=== PATIENT | female | born 1980 | race Caucasian/White ===

== ENCOUNTER 2023-03-13 06:39 | Emergency (ER) | payer OTHER ==
--- OUTSIDE RECORDS SUMMARY | 2023-03-13 06:43 | XMS REPORT | Continuity of Care Document ---
:1980 Author Organization [facility] t Address [address] [place] [address] [place] [address] [id number] Care Team Providers Name Role Phone Sari Albina HALL Primary Care Physician [phone] JUSTIN HENLEY Attending Clinician Unavailable CECIL GÓMEZ Attending Clinician Unavailable GENNY ANDREWS Attending Clinician Unavailable REBEKAH HERCULES Attending Clinician Unavailable [id number] Attending Clinician Unavailable LAB90 Attending Clinician Unavailable Genny Andrews Attending Clinician Unavailable DOUGLAS PRINCE Attending Clinician Unavailable JORGE SAMANIEGO Attending Clinician Unavailable Jorge Samaniego DO Attending Clinician ZOILA MCNULTY S Attending Clinician Unavailable Zoila Camejo S Attending Clinician Doctor Unassigned, [place] Attending Clinician Unavailable Claudine Gutierrez RN Attending Clinician Olga Camejo MD Attending Clinician Gifty Wheeler MD Attending Clinician Mary Ledbetter MD Attending Clinician MARY LEDBETTER Attending Clinician Unavailable Genny Andrews Admitting Clinician Unavailable JORGE SAMANIEGO Admitting Clinician Unavailable Gifty Wheeler MD Admitting Clinician GIFTY WHEELER Admitting Clinician Unavailable Payers Payer Name Policy Type Policy Number Effective Date Expiration Date Jazmin BURDICK MP CVS 9 [id number] 2022 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 [id number] 2021 NON-CONTRACT 00:00:00 GENERIC Problems Condition Condition Condition Status Onset Resolution Last Treating Co mments Source Name Details Category Date Date Treatment Clinician Date Pyelonephr Pyelonephr Disease Active U nivers itis itis 2-10 ity of 00:00: [address] Obesity Obesity Disease Active Univers (BMI (BMI 1-03 ity of 30-39.9) 30-39.9) 00:00: [address] Allergies, Adverse Reactions, Alerts Allergy Allergy Status Severity Reaction(s) Onset Inactive Treating Comm ents Source Name Type Date Date Clinician Codeine Propensi Active Nausea and Nolan sey ty to Vomiting 7-07 Seybold adverse 00:00: - reaction 00 Externa s l Sulfa Propensi Active (Sulfona ty to 7-07 mide adverse 00:00: Antibiot reaction 00 ics) to drug SULFA Drug Active Other-Cmnt Univer s (SULFONA Class 2-23 ity of MIDE 00:00: [place] ANTIBIOT 00 Medical ICS) Branch Sulfa Propensi Active Other - See Rash, Uni vers (Sulfona ty to comments 2-23 fever ity of mide adverse 00:00: [place] Antibiot reaction 00 Medica l ics) s Branch Sulfa Propensi Active Other Rash, Leandra Drugs ty to 2-23 fever Seybold adverse 00:00: - reaction 00 Externa s l No Known DA Active U [facility] Allergie 9-14 Clear s 00:00: [address] NO KNOWN Drug Active Univers ALLERGIE Class ity of S [facility] Social History Social Habit Start Date Stop Date Quantity Comments Source Gender identity Leandra Se ybold - External History of tobacco Cigarette Smoker Leandra Seybold - use External Sexual orientation Univer sity [facility] Alcohol intake 2022-09-242022-09-24 Lifetime Leandra Sey bold - 00:00:00 00:00:00 non-drinker External (finding) Exposure to 2022-01-01 2022-01-11 Not sure University of SARS-CoV-2 (event) 00:00:00 06:41:00 [facility] History of Social 2022-01-11 2022-01-11 Univers ity of function 00:00:00 00:00:00 [facility] Tobacco use and 2021-06-21 2021-06-21 User of smokeless Un iversity of exposure 00:00:00 00:00:00 tobacco [facility] Tobacco Comment 2021-06-21 2021-06-21 occasional smoker Un iversity of 00:00:00 00:00:00 1-3 sticks per [facility] Branch Sex Assigned At [birth year] Leandra Mary ybold - 00:00:00 00:00:00 External Smoking Status Start Date Stop Date Source Smokes tobacco daily 2022-08-07 00:00:00 Leandra Seybold - External Occasional tobacco smoker 2021-06-21 00:00:00 Un iversity of [facility] Medications Ordered Filled Start Stop Current Ordering Indication Dosage Frequency Signature Comments Components Source Medication Medication Date Date Medication? Clinician (SIG) Name Name Ondansetron Yes [id number] 4mg Q.[id number] Take 1 Leandra HCl 4 MG 01-20 [id number] tablet (4 Seybold oral Tablet 00:00: 3D mg total) - 00 by mouth Externa every 8 l hours as needed for nausea. FLUTICASONE Yes [id number] 50ug Use 1 Leandra PROPIONATE, 9-11 spray (50 Sey bold NASAL, 50 00:00: mcg total) - MCG/ACT 00 in each Externa nasal nostril l Suspension daily. PAXLOVID 2022- Yes [id number] Take two Leandra STANDARD -03 20- 150 mg Seybold (30) 00:00: 04:59 nirmatrelv - (300/100) 00 :00 ir (pink) Exter na Therapy tablets l Pack with one 100 mg ritonavir (white) tablet by mouth two times daily for 5 days. Bupropion 2022-0 Yes [id number] 150mg TAKE ONE Leandra HCL XL 150 8-25 (1) TABLET Sey bold MG OR TB24 00:00: (150 MG - 00 TOTAL) BY Externa MOUTH l DAILY. Escitalopra 2022-0 Yes [id number] 10mg TAKE ONE Leandra m Oxalate 8-25 (1) TABLET Seyb old 10 MG oral 00:00: (10 MG - Tablet 00 TOTAL) BY Externa MOUTH l DAILY. Methylpredn 0 2022- No [id number] 80mg Leandra isolone 5-16 05-16 Seybold Acetate 14:45: 14:37 - (DEPO-MEDRO 00 :00 Externa L) [80 l mg/ml] Methylpredn 0 2022- No [id number] 80mg 80 mg, Leandra isolone 5-16 05-16 intramuscu Seybo ld Acetate 14:45: 14:37 lar, ONCE, - (DEPO-MEDRO 00 :00 On Tue Firefighter Type One a L) [80 5/16/23 at l mg/ml] 0945, For 1 dose Methotrexat 2022-0 Yes [id number] Inject Leandra e 50 MG/2ML 5-16 0.4ml SC Seyb old injection 00:00: once a - Solution 00 week Externa l Methotrexat 2022-0 Yes [id number] Inject Leandra e 50 MG/2ML 5-16 0.4ml SC Seyb old injection 00:00: once a - Solution 00 week Externa l Escitalopra 2022-0 Yes [id number] 10mg Take 1 Leandra m Oxalate 4-25 tablet (10 Seyb old (Lexapro) 00:00: mg total) - 10 MG oral 00 by mouth Exter na Tablet daily l Bupropion 2022-0 Yes [id number] 150mg Take 1 K elsey HCL XL 150 4-25 tablet Seybold MG OR TB24 00:00: (150 mg - 00 total) by Externa mouth l daily Ondansetron 2022-0 Yes [id number] 4mg Q.[id number] Take 1 Leandra (ZOFRAN) 4 4-25 [id number] tablet (4 Seybold MG oral 00:00: 3D mg total) - TABLET 00 by mouth Externa DISPERSIBLE every 8 l hours as needed Escitalopra 2023-0 Yes [id number] 10mg Take 1 Leandra m Oxalate 4-25 tablet (10 Seyb old (Lexapro) 00:00: mg total) - 10 MG oral 00 by mouth Exter na Tablet daily l Bupropion 3-0 Yes [id number] 150mg Take 1 K elsey HCL XL 150 4-25 tablet Seybold MG OR TB24 00:00: (150 mg - 00 total) by Externa mouth l daily Ondansetron 3-0 Yes [id number] 4mg Q.[id number] Take 1 Leandra (ZOFRAN) 4 4-25 [id number] tablet (4 Seybold MG oral 00:00: 3D mg total) - TABLET 00 by mouth Externa DISPERSIBLE every 8 l hours as needed Ondansetron 2023-0 Yes [id number] 4mg Q.[id number] Take 1 Leandra (ZOFRAN) 4 4-25 [id number] tablet (4 Seybold MG oral 00:00: 3D mg total) - TABLET 00 by mouth Externa DISPERSIBLE every 8 l hours as needed methylPREDN 2023-0 Yes [id number] 1{vignesh} Take 1 vignesh Leandra ISolone 4 4-17 by mouth Seybol d MG oral 00:00: See Admin - Tablet 00 Instructio Externa Therapy ns Use as l Pack directed Ondansetron 2023-0 Yes [id number] 4mg Q.[id number] Take 1 Leandra HCl 4 MG 4-17 [id number] tablet (4 Seybold oral Tablet 00:00: 3D mg total) - 00 by mouth Externa every 8 l hours as needed for nausea methylPREDN 2023-0 Yes [id number] 1{vignesh} Take 1 vignesh Leandra ISolone 4 4-17 by mouth Seybol d MG oral 00:00: See Admin - Tablet 00 Instructio Externa Therapy ns Use as l Pack directed Ondansetron 2023-0 Yes [id number] 4mg Q.[id number] Take 1 Leandra HCl 4 MG 4-17 [id number] tablet (4 Seybold oral Tablet 00:00: 3D mg total) - 00 by mouth Externa every 8 l hours as needed for nausea Ondansetron 2023-0 Yes [id number] 4mg Q.[id number] Take 1 Leandra HCl 4 MG 4-17 [id number] tablet (4 Seybold oral Tablet 00:00: 3D mg total) - 00 by mouth Externa every 8 l hours as needed for nausea Ondansetron 2022- No [id number] 4mg Q.[id number] Take 1 Leandra HCl 4 MG 4-17 - [id number] tablet (4 Seybold oral Tablet 00:00: 00:00 3D mg total) - 00 :00 by mouth Externa every 8 l hours as needed for nausea methylPREDN 2022- No [id number] 1{vignesh} Take 1 vignesh Leandra ISolone 4 17 -16 by mouth Seybo ld MG oral 00:00: 00:00 See Admin - Tablet 00 :00 Instructio Externa Therapy ns Use as l Pack directed predniSONE Yes [id number] 1 pill K elsey (DELTASONE) 3-30 twice Seybold 10 MG oral 00:00: daily for - tablet 00 5 days Externa then 1 l pill once daily for 5 days predniSONE Yes [id number] 1 pill K elsey (DELTASONE) 3-30 twice Seybold 10 MG oral 00:00: daily for - tablet 00 5 days Externa then 1 l pill once daily for 5 days predniSONE 2022- No [id number] 1 pill Leandra (DELTASONE) 3-30 05-16 twice Seybol d 10 MG oral 00:00: 00:00 daily for - tablet 00 :00 5 days Externa then 1 l pill once daily for 5 days iopamidol 2021- No [id number] 64mL 64 mL, Univers (ISOVUE 01-11 Intravenou ity o f 370-500 mL) 14:00: 12:59 s, ONCE, 1 [place] injection 00 :00 dose, On Medica l 64 mL 01/11/22 Branch at 0900, Routine ondansetron 2021- No 4mg 4 mg, Slow Univers (ZOFRAN 01-11 IV Push, ity of (PF)) 13:15: 12:35 ONCE, 1 [place] injection 4 00 :00 dose, On Medi ofelia mg Fri01/11/22 Branch at 0815, Routine morpHINE (4 2021- No 4mg 4 mg, Slow Univers mg/mL) 01-11 IV Push, ity of injection 4 13:15: 12:36 ONCE, 1 [place] mg 00 :00 dose, On Medical Fri01/11/22 Branch at 0815, STAT piperacilli 2021- No 3.375g 3.375 g, Univers n-tazobacta 01-11 IV ity of m (ZOSYN) 12:31: 13:06 Piggyback, [place] 3.375 g in 00 :00 ONCE, 1 Medica l NaCl 0.9% dose, On Branch (NS) 50 mL Fri01/11/22 MINI-BAG at 0745, Administer over 30 Minutes, 50 mL
R vini for Anti-Infec tive: Empiric Therapy for Suspected Infection< br>Empiric Therapy Site: Skin / Soft tissue
Duration of therapy: 72 hours dexamethaso 2021- No 10mg 10 mg, Uni vers ne sod phos 01-11 Slow IV ity of PF 12:15: 12:30 Push, [place] injection 00 :00 ONCE, 1 Medical 10 mg dose, On Branch Fri01/11/22 at 0715, 1 mL chlorhexidi Yes [id number] 15mL Swish and Univers ne 0.12 % 01-11 spit out ity of mouthwash 00:00: 15 [place] in [place] 00 the Medical morning Branch and 15 mL in the evening. methylPREDN 2021-0 Yes Take by Univers ISolone 01-11 mouth ity of (MEDROL, 00:00: SEE-INSTRU [place] as VIGNESH,) 4 mg 00 CTIONS. Medica l tablets follow Branch package directions ondansetron 2021-0 Yes [id number] 4mg Take 1 Univers 4 mg 01-11 tablet by ity of disintegrat 00:00: mouth [place] ing tablet 00 every 8 Medica l (eight) Branch hours as needed for Nausea and Vomiting (N/V). Ondansetron 2021-0 Yes 4mg Q.[id number] Take 4 mg Leandra (ZOFRAN) 4 01-11 [id number] by mouth Seybold MG oral 00:00: 3D every 8 - TABLET 00 hours as Externa DISPERSIBLE needed l Ondansetron Yes 4mg Q.[id number] Take 4 mg Leandra (ZOFRAN) 4 - [id number] by mouth Seybold MG oral 00:00: 3D every 8 - TABLET 00 hours as Externa DISPERSIBLE needed l Ondansetron 2022- No 4mg Q.[id number] Take 4 mg Leandra (ZOFRAN) 4 01-11 04- [id number] by mouth Seybold MG oral 00:00: 00:00 3D every 8 - TABLET 00 :00 hours as Externa DISPERSIBLE needed l clindamycin 2021- No [id number] 300mg Take 2 Univers 150 mg 01-11 09-10 capsules ity of capsule 00:00: 04:59 by mouth 4 [place] as 00 :00 (four) Medical times Branch daily for 7 days. HYDROcodone 2021- No 4647 .5{tbl} Take 0.5-1 Univers -acetaminop 01-1110 tablets by era [place] (NORCO) 00:00: 04:59 mouth [place] 10-325 mg 00 :00 every 6 Medical tablet (six) Branch hours as needed for Pain (scale 7-10) for up to 7 days. Indication s: acute pain Dose No Unknown 7-07 00:00: 00 Dose 0 No Unknown 7-07 00:00: 00 Dose 0 No Unknown 7-07 00:00: 00 Dose 2021-0 No Unknown 7-07 00:00: 00 Dose 0 No Unknown 7-07 00:00: 00 ciprofloxac No 1mg in 500 mg 7-07 tablet 00:00: 00 prednisone 0 No mg 10 mg 7-07 tablet 00:00: 00 diphenhydrA 2021- No 25mg 25 mg, Uni vers MINE 07-04 Slow IV ity of (BENADRYL) 19:30: 18:40 Push, [place] injection 00 :00 ONCE, 1 Medical 25 mg dose, On Branch 07/04/21 at 1330, STAT ondansetron 2021- No 4mg 4 mg, Slow Univers (ZOFRAN 07-04 IV Push, ity of (PF)) 19:30: 18:40 ONCE, 1 [place] injection 4 00 :00 dose, On Medi ofelia mg Wed Branch 07/04/21 at 1330, KEON NaCl 0.9% 2021- No 500mL at 999 Univ ers (NS) bolus 07-04 mL/hr, 500 it y of infusion 19:30: 19:40 mL, IV [place] 500 mL 00 :00 Infusion, Medical ONCE, 1 Branch dose, On Fri07/04/21 at 1330, STAT NaCl 0.9% 2021- No 1000mL at 999 Uni vers (NS) bolus 07-04 mL/hr, ity of infusion 18:00: 17:58 1,000 mL, [place] as 1,000 mL 00 :00 IV Medical Infusion, Branch ONCE, 1 dose, On Fri07/04/21 at 1200, STAT acetaminoph 2021- No 650mg 650 mg, U nivers en 07-04 Oral, ity of (CHILDREN'S 17:10: 17:08 ONCE, 1 [place] ACETAMINOPH 00 :00 dose, On Medi ofelia EN) 160 Wed Branch mg/5 mL (5 07/04/21 at mL) oral 1115, suspension Routine 650 mg predniSONE 2021- No [id number] Take 3 Univers 20 mg 07-04 03-05 tablets by ity of tablet 00:00: 05:59 mouth [place] 00 :00 every Medical morning Branch for 3 days, THEN 2 tablets every morning for 3 days, THEN 1 tablet every morning for 3 days. ciprofloxac No 1mg in 250 mg 2-16 tablet 00:00: 00 acetaminoph 0 Yes Take by Uni vers en 2-14 mouth ity of (TYLENOL) 06:51: every 6 [place] 325 mg 01 (six) Medical tablet hours as Branch needed. naproxen 0 Yes 250mg Take 250 Univ ers 250 mg 2-14 mg by ity of tablet 06:51: mouth 2 [place] 01 (two) Medical times Branch daily with meals. acetaminoph 2022-0 Yes Take by Uni vers en 2-14 mouth ity of (TYLENOL) 06:51: every 6 [place] 325 mg 01 (six) Medical tablet hours as Branch needed. naproxen 2022-0 Yes 250mg Take 250 Univ ers 250 mg 2-14 mg by ity of tablet 06:51: mouth 2 [place] (two) Medical times Branch daily with meals. acetaminoph 2022-0 Yes Take by Uni vers en 2-14 mouth ity of (TYLENOL) 06:51: every 6 [place] 325 mg 01 (six) Medical tablet hours as Branch needed. naproxen 2022-0 Yes 250mg Take 250 Univ ers 250 mg 2-14 mg by ity of tablet 06:51: mouth 2 [place] (two) Medical times Branch daily with meals. acetaminoph 2022-0 Yes Take by Uni vers en 2-14 mouth ity of (TYLENOL) 06:51: every 6 [place] 325 mg 01 (six) Medical tablet hours as Branch needed. naproxen 2022-0 Yes 250mg Take 250 Univ ers 250 mg 2-14 mg by ity of tablet 06:51: mouth 2 [place] (two) Medical times Branch daily with meals. acetaminoph 2022-0 Yes Take by Uni vers en 2-14 mouth ity of (TYLENOL) 06:51: every 6 [place] 325 mg 01 (six) Medical tablet hours as Branch needed. naproxen 2022-0 Yes 250mg Take 250 Univ ers 250 mg 2-14 mg by ity of tablet 06:51: mouth 2 [place] (two) Medical times Branch daily with meals. vitamin 2021-0 Yes 1000ug 1,000 mcg, Un guy B-12 2-13 Oral, ity of (CYANOCOBAL 15:00: DAILY, [place] HIGHTOWER) 00 First dose Medical tablet on Sun Branch 1,000 mcg 06/24/21 at 0900, Until Discontinu ed, Routine vitamin 2021-0 2021- No [id number] 1000ug Take 1 Univers B-12 1,000 2-13 03-16 tablet by ity of mcg tablet 00:00: 04:59 mouth [place] 00 :00 daily for Medical 30 days. Branch vitamin 2021-0 2021- No [id number] 1000ug Take 1 Univers B-12 1,000 2-13 -16 tablet by ity of mcg tablet 00:00: 04:59 mouth [place] 00 :00 daily for Medical 30 days. Branch vitamin 2-0 2021- No [id number] 1000ug Take 1 Univers B-12 1,000 2-13 -16 tablet by ity of mcg tablet 00:00: 04:59 mouth [place] 00 :00 daily for Medical 30 days. Branch vitamin 2-0 2021- No [id number] 1000ug Take 1 Univers B-12 1,000 2-13 -16 tablet by ity of mcg tablet 00:00: 04:59 mouth [place] 00 :00 daily for Medical 30 days. Branch ibuprofen 2022-0 Yes 800mg Take 800 Uni vers 800 mg 2-12 mg by ity of tablet 18:52: mouth [place] 02 every 8 Medical (eight) Branch hours as needed. ibuprofen 2022-0 Yes 800mg Take 800 Uni vers 800 mg 2-12 mg by ity of tablet 18:52: mouth [place] 02 every 8 Medical (eight) Branch hours as needed. ibuprofen 2022-0 Yes 800mg Take 800 Uni vers 800 mg 2-12 mg by ity of tablet 18:52: mouth [place] 02 every 8 Medical (eight) Branch hours as needed. ibuprofen 2022-0 Yes 800mg Take 800 Uni vers 800 mg 2-12 mg by ity of tablet 18:52: mouth [place] 02 every 8 Medical (eight) Branch hours as needed. ibuprofen 2022-0 Yes 800mg Take 800 Uni vers 800 mg 2-12 mg by ity of tablet 18:52: mouth [place] 02 every 8 Medical (eight) Branch hours as needed. ibuprofen 2022-0 Yes 800mg Take 800 Uni vers 800 mg 2-12 mg by ity of tablet 18:52: mouth [place] 02 every 8 Medical (eight) Branch hours as needed. acetaminoph 2022-0 Yes Take by Uni vers en 2-12 mouth ity of (TYLENOL) 18:52: every 6 [place] 325 mg 02 (six) Medical tablet hours as Branch needed. naproxen 2022-0 Yes 250mg Take 250 Univ ers 250 mg 2-12 mg by ity of tablet 18:52: mouth 2 [place] 02 (two) Medical times Branch daily with meals. magnesium 2022-0 202- No 2g 2 g, IV Univ ers sulfate in 06-23 Piggyback, it y of water 2 15:30: 15:33 ONCE, 1 [place] gram/50 mL 00 :00 dose, On Medic al (4 %) Sat Branch infusion 2 06/23/21 at g 0930, Routine acetaminoph Yes 1{tbl} 1 tablet, Univers en-codeine - Oral, ity of (TYLENOL 07:51: Q6HPRN, [place] #3) 300-30 31 Starting Medic al mg tablet 1 on Sat Branch tablet 06/23/21 at 0151, Until Discontinu ed, Routine, Pain (scale 4-6) omeprazole 2021-2021- No [id number] 20mg Take 1 Univers 20 mg 06-23-15 capsule by ity of capsule 00:00: 04:59 mouth [place] 00 :00 daily for Medical 30 days. Branch omeprazole 2021-2021- No [id number] 20mg Take 1 Univers 20 mg 06-23-15 capsule by ity of capsule 00:00: 04:59 mouth [place] 00 :00 daily for Medical 30 days. Branch omeprazole 2021- No [id number] 20mg Take 1 Univers 20 mg 06-23-15 capsule by ity of capsule 00:00: 04:59 mouth [place] 00 :00 daily for Medical 30 days. Branch omeprazole 2021-2021- No [id number] 20mg Take 1 Univers 20 mg 06-23-15 capsule by ity of capsule 00:00: 04:59 mouth [place] 00 :00 daily for Medical 30 days. Branch sulfamethox 2021- No [id number] 1{tbl} Take 1 Univers azole-trime 06-23 tablet by it y of thoprim 00:00: 05:59 mouth 2 [place] (BACTRIM 00 :00 (two) Medical DS) 800-160 times Branch mg per daily for tablet 11 days. sulfamethox 2021- No [id number] 1{tbl} Take 1 Univers azole-trime 06-23-24 tablet by it y of thoprim 00:00: 05:59 mouth 2 [place] (BACTRIM 00 :00 (two) Medical DS) 800-160 times Branch mg per daily for tablet 11 days. sulfamethox 2021- No [id number] 1{tbl} Take 1 Univers azole-trime -04 12- tablet by it y of thoprim 00:00: 05:59 mouth 2 [place] (BACTRIM 00 :00 (two) Medical DS) 800-160 times Branch mg per daily for tablet 11 days. sulfamethox 2021-0 2021- No [id number] 1{tbl} Take 1 Univers azole-trime 06-23 tablet by it y of thoprim 00:00: 05:59 mouth 2 [place] (BACTRIM 00 :00 (two) Medical DS) 800-160 times Branch mg per daily for tablet 11 days. HYDROcodone 2021- No [id number] 1{tbl} Take 1 U nivers -acetaminop 06-2320 tablet by it y of hen 10-325 00:00: 05:59 mouth [place] mg tablet 00 :00 every 8 Medical (eight) Branch hours as needed for Pain (scale 7-10) for up to 7 days. Indication s: acute pain HYDROcodone 2021-2021- No [id number] 1{tbl} Take 1 U nivers -acetaminop 06-2320 tablet by it y of hen 10-325 00:00: 05:59 mouth [place] mg tablet 00 :00 every 8 Medical (eight) Branch hours as needed for Pain (scale 7-10) for up to 7 days. Indication s: acute pain levoFLOXaci 2021- No [id number] 750mg Take 1 Univers n 750 mg 06-23 tablet by ity o f tablet 00:00: 00:00 mouth [place] 00 :00 every 24 Medical (twenty-fo Branch ur) hours for 4 days. NaCl 0.9% 2021- Yes 10mL 10 mL, Univer s (NS) 2-11 Slow IV ity of injection 18:40: Push, [place]N, [place] 10 mL 31 Starting Medical on Fri Branch 06/22/21 at 1240, Until Discontinu ed, Routine, line maintenanc e lidocaine 2021-0 Yes 5mL 5 mL, Univers 1% (PF) 2-11 Subcutaneo ity of (XYLOCAINE) 18:40: us, PRN, [place] injection 5 31 Starting Medi ofelia mL on Fri Branch 06/22/21 at 1240, Until Discontinu ed, Routine, Local anesthesia sennosides- Yes 1{tbl} 1 tablet, Univers docusate 2-11 Oral, ity of sodium 15:00: DAILY, [place] (SENOKOT-S) 00 First dose Me dical 8.6-50 mg on Fri Branch per tablet 06/22/21 at 1 tablet 0900, Until Discontinu ed, Routine enoxaparin Yes 40mg 40 mg, Unive rs (LOVENOX) 2-10 Subcutaneo ity of injection 23:00: us, DAILY, [place] 40 mg 00 First dose Medical on [place] Branch 06/21/21 at 1700, Until Discontinu ed, Routine butalbital- 2021- No 1{tbl} 1 tablet, Univers acetaminoph 2-10 02-10 Oral, ONCE i ty of en-caff 20:30: 19:49 NOW, 1 [place] (ESGIC) 00 :00 dose, On Medical 50-325-40 [facility] mg tablet 1 06/21/21 at tablet 1430, Routine ceFEPIme Yes 2000mg 2,000 mg, Un guy (MAXIPIME) 2-10 IV ity of 2,000 mg in 18:00: [facility], [place] NaCl 0.9% 00 Q8H ABX, Medica l (NS) 100 mL First dose Br anch MINI-BAG (after last modificati on) on [facility] 06/21/21 at 1200, Until Discontinu ed, Administer over 30 Minutes, 100 mL
Reas on for Anti-Infec tive: Documented Infection< br>Documen ras Infection Site: Urine
D uration of Therapy: 7 days polyethylen Yes 17g 17 g, Unive rs e glycol 2-10 Oral, ity of 3350 powder 17:00: DAILY, [place] 17 g 00 First dose Medical on [facility] Branch 06/21/21 at 1100, Until Discontinu ed, Routine cyanocobala 2021- No 1000ug 1,000 mcg, Univers min 2-10 02-12 Intramuscu ity of (VITAMIN 14:30: 14:23 lar, Q24H, [place] B12) 00 :00 3 doses, Medical injection First dose Bran ch 1,000 mcg on [place] 06/21/21 at 0830, Last dose on 06/23/21 at 0830, Routine HYDROcodone 2021-0 Yes 1{tbl} 1 tablet, Univers -acetaminop 2-10 Oral, ity of hen (NORCO) 09:15: Q6HPRN, [place] 10-325 mg 31 Starting Medica l tablet 1 on [place] Branch tablet 06/21/21 at 0315, Until Discontinu ed, Routine, Pain (scale 7-10) ondansetron 2021-0 Yes 4mg 4 mg, Slow Univers (ZOFRAN 2-10 IV Push, ity of (PF)) 09:05: Q6HPRN, [place] injection 4 11 Starting Medi ofelia mg on [place] Branch 06/21/21 at 0305, Until Discontinu ed, Routine, Nausea and Vomiting (N/V) acetaminoph 0 Yes 650mg 650 mg, Un guy en 2-10 Oral, ity of (TYLENOL) 09:05: Q6HPRN, [place] tablet 650 11 Starting Medic al mg on [place] Branch 06/21/21 at 0305, Until Discontinu ed, Routine, Pain (scale 1-3) morpHINE 2021-0 2021- No 4mg 4 mg, Slow Un guy injection 4 2-10 02-10 IV Push, ity of mg 08:00: 06:59 ONCE, 1 [place] 00 :00 dose, On Medical [place] Branch 06/21/21 at 0200, STAT acetaminoph 2021-0 2021- No 1000mg 1,000 mg, Univers en 2-10 02-10 Oral, ity of (CHILDREN'S 07:15: 06:15 ONCE, 1 [place] ACETAMINOPH 00 :00 dose, On Medi ofelia EN) 160 [place] Branch mg/5 mL (5 06/21/21 at mL) oral 0115, suspension Routine 1,000 mg ketorolac 2021-0 2021- No 30mg 30 mg, Unive rs (TORADOL) 2-10 02-10 Slow IV ity of injection 06:30: 05:33 Push, [place] 30 mg 00 :00 ONCE, 1 Medical dose, On Branch [place] 06/21/21 at 0030, KEON
Fa culty member approving Restricted medication : ROLANDO CAMEJONELL vancomycin No 15mg/kg 1,500 mg Univers (VANCOCIN) 06-21 (rounded ity of 1,500 mg in 05:30: 06:00 from [place] NaCl 0.9% 00 :00 1,510.5 mg Medi ofelia (NS) 500 mL = 15 mg/kg Br anch piggyback ?100.7 kg), IV Piggyback, ONCE, 1 dose, On Fri06/20/21 at 2330, Administer over 30 Minutes, 500 mL
Reas on for Anti-Infec tive: Documented Infection& lt;br>Docu mented Infection Site: Blood
D uration of Therapy: Other (see Comments) ceFEPIme No 1000mg 1,000 mg, U nivers (MAXIPIME) 06-21 IV ity of injection 05:30: 04:59 [place]back, [place] 1,000 mg 00 :00 ONCE, 1 Medical dose, On Branch Fri06/20/21 at 2330, STAT
Re ason for Anti-Infec tive: Empiric Therapy for Suspected Infection< br>Empiric Therapy Site: Blood
D uration of therapy: 72 hours NaCl 0.9% 2021- No 1000mL at 999 Uni vers (NS) bolus 2-10 02-10 mL/hr, ity of infusion 04:15: 05:19 1,000 mL, [place] 1,000 mL 00 :00 IV Medical Infusion, Branch ONCE, 1 dose, On Fri06/20/21 at 2215, STAT NaCl 0.9% 2021- No 1000mL at 999 Uni vers (NS) bolus 2-10 02-10 mL/hr, ity of infusion 04:15: 05:47 1,000 mL, [place] 1,000 mL 00 :00 IV Medical Infusion, Branch ONCE, 1 dose, On Fri06/20/21 at 2215, STAT HYDROcodone 2021- No 1{tbl} Take 1 U nivers -acetaminop 2-10 02-10 tablet by it y of hen (NORCO) 03:06: 00:00 mouth [place] 10-325 mg 45 :00 every 4 Medical tablet (four) Branch hours as needed. busPIRone 2021-2021- No 10mg Take 10 mg U nivers 10 mg 2-10 02-10 by mouth 2 ity of tablet 03:06: 00:00 (two) [place] 45 :00 times Medical daily as Branch needed. predniSONE 2021-0 2021- No 10mg Take 10 mg Univers 10 mg 2-10 02-10 by mouth ity of tablet 03:06: 00:00 daily. [place] 45 :00 Medical Branch BUPROPION 2021-0 2021- No 200mg Take 200 Un guy HCL 2-10 02-10 mg by ity of (WELLBUTRIN 03:06[place] 00[place] :00 daily. Medical Branch prednisone 2021-0 No mg 20 mg 2-08 tablet 00:00: 00 phenazopyri 2021-0 No 1mg dine 100 mg 2-08 tablet 00:00: 00 Macrobid 2021-0 No 1mg 100 mg 2-08 capsule 00:00: 00 amoxicillin 2016-0 2021- No 1{tbl} Take 1 U nivers -clavulanat 1-03 02-10 tablet by it y of e 00:00: 00:00 mouth 2 [place] (AUGMENTIN) 00 :00 (two) Medical 875-125 mg times Branch per tablet daily. Immunizations Ordered Filled Date Status Comments Source Immunization Name Immunization Name Td (adult) 2014-11-29 Completed Leandra Jcaob - 00:00:00 External Td (adult) 2014-11-29 Completed Leandra Jacob - 00:00:00 External Td (adult) 2014-11-29 Completed Leandra Jacob - 00:00:00 External Td (adult) 2014-11-29 Completed Leandra Jacob - 00:00:00 External Td (adult) 2014-11-29 Completed Leandra Jacob - 00:00:00 External Td 2014-11-29 Completed [facility] 00:00:00 [facility] Td 2014-11-29 Completed [facility] 00:00:00 [facility] Td 2014-11-29 Completed [facility] 00:00:00 [facility] Td 2014-11-29 Completed [facility] 00:00:00 [facility] Td 2014-11-29 Completed University 00:00:00 [facility] TD, NOS Unknown Completed [facility] Vital Signs Vital Name Observation Time Observation Value Comments Source Systolic blood 2022-09-24 14:25:00 109 mm[Hg] Leandra Seybold - pressure External Diastolic blood 2022-09-24 14:25:00 76 mm[Hg] Kelse y Seybold - pressure External Heart rate 2022-09-24 14:25:00 85 /min Leandra S eybold - External Respiratory rate 2022-09-24 14:25:00 16 /min Lindsay ey Seybold - External Body height 2022-09-24 14:25:00 175.3 cm Leandra S eybold - External Body weight 2022-09-24 14:25:00 105.235 kg Leandra S eybold - External BMI 2022-09-24 14:25:00 34.26 kg/m2 Leandra S eybold - External Systolic blood 2022-08-26 16:02:00 118 mm[Hg] Leandra Seybold - pressure External Diastolic blood 2022-08-26 16:02:00 68 mm[Hg] Nolanse y Seybold - pressure External Heart rate 2022-08-26 16:02:00 89 /min Leandra Wu eybold - External Body temperature 2022-08-26 16:02:00 35.89 Bernadette Lindsay ey Seybold - External Respiratory rate 2022-08-26 16:02:00 16 /min Lindsay ey Seybold - External Body height 2022-08-26 16:02:00 175.3 cm Leandra S eybold - External Body weight 2022-08-26 16:02:00 105.688 kg Leandra S eybold - External BMI 2022-08-26 16:02:00 34.41 kg/m2 Leandra S eybold - External Oxygen saturation in 2022-08-26 16:02:00 96 /min Leandra Seybold - Arterial blood by External Pulse oximetry Systolic blood 2022-08-07 14:23:00 108 mm[Hg] Leandra Seybold - pressure External Diastolic blood 2022-08-07 14:23:00 76 mm[Hg] Kelse y Seybold - pressure External Heart rate 2022-08-07 14:23:00 117 /min Leandra lucasbomargo - External Body temperature 2022-08-07 14:23:00 36.39 Bernadette Lindsay Jacob - External Body height 2022-08-07 14:23:00 175.3 cm Leandra lucasbomargo - External Body weight 2022-08-07 14:23:00 104.327 kg Leandra lucasbold - External BMI 2022-08-07 14:23:00 33.97 kg/m2 Leandra lucasbomargo - External Heart rate 2022-01-11 14:30:00 76 /min [facility] [place] [facility] Oxygen saturation in 2022-01-11 14:30:00 98 /min [facility] of Arterial blood by [facility] Pulse oximetry Branch Systolic blood 2022-01-11 14:00:00 119 mm[Hg] Univer sity of pressure [place] [facility] Diastolic blood 2022-01-11 14:00:00 88 mm[Hg] Unive rsity of pressure [place] [facility] Respiratory rate 2022-01-11 14:00:00 16 /min [facility] [place] [facility] Body temperature 2022-01-11 11:44:00 37.33 Bernadette [facility] [place] [facility] Body height 2022-01-11 11:44:00 175.3 cm [facility] [place] [facility] Body weight 2022-01-11 11:44:00 102.513 kg [facility] [place] [facility] BMI 2022-01-11 11:44:00 33.37 kg/m2 [facility] [place] [facility] Body temperature 2021-07-04 18:47:34 37.78 Bernadette [facility] [place] [facility] Heart rate 2021-07-04 18:24:00 112 /min [facility] [place] [facility] Oxygen saturation in 2021-07-04 18:24:00 96 /min University of Arterial blood by [facility] Pulse oximetry Branch Systolic blood 2021-07-04 16:51:00 132 mm[Hg] Univer sity of pressure [place] [facility] Diastolic blood 2021-07-04 16:51:00 77 mm[Hg] Unive rsity of pressure [place] [facility] Respiratory rate 2021-07-04 16:51:00 18 /min [facility] [place] [facility] Body weight 2021-07-04 16:51:00 100.699 kg [facility] [place] [facility] BMI 2021-07-04 16:51:00 32.77 kg/m2 Universi ty [facility] Oxygen saturation in 2021-06-23 23:42:00 97 /min [facility] Arterial blood by [facility] Pulse oximetry Branch Systolic blood 2021-06-23 23:42:00 127 mm[Hg] Univer sity of pressure [facility] Diastolic blood 2021-06-23 23:42:00 76 mm[Hg] Unive rsity of pressure [facility] Heart rate 2021-06-23 23:42:00 83 /min Universi ty [facility] Body temperature 2021-06-23 23:42:[address] [facility] Respiratory rate 2021-06-23 23:42:00 18 /min [facility] Body height 2021-06-23 14:08:00 175.3 cm Universi ty [facility] Body weight 2021-06-23 14:08:00 100.699 kg Universi ty [facility] BMI 2021-06-23 14:08:00 32.77 kg/m2 [facility] BP Systolic 2021-07-04 10:21:00 BP Diastolic 2021-07-04 10:21:00 Weight Measured 2021-07-04 10:21:00 218.40 pounds Height Measured 2021-07-04 10:21:00 69.00 inches Body Temperature 2021-07-04 10:21:00 100.30 degrees Heart Rate 2021-07-04 10:21:00 144.00 /min Respiratory Rate 2021-07-04 10:21:00 BP Systolic 2021-06-19 10:51:00 126 mm[Hg] BP Diastolic 2021-06-19 10:51:00 75 mm[Hg] Weight Measured 2021-06-19 10:51:00 222.20 pounds Height Measured 2021-06-19 10:51:00 69.00 inches Body Temperature 2021-06-19 10:51:00 98.00 degrees Heart Rate 2021-06-19 10:51:00 120.00 /min Respiratory Rate 2021-06-19 10:51:00 24.00 /min Procedures Procedure Date / Time Performing Clinician Source Performed CT SOFT TISSUE NECK W 2022-01-11 13:06:31 Jorge Samaniego [facility] CONTRAST [facility] LACTIC ACID WHOLE BLOOD 2022-01-11 12:28:00 Singer [facility] COMP. METABOLIC PANEL 2022-01-11 12:27:00 Singer [facility] ([id number]) [facility] Branch CBC WITH DIFF 2022-01-11 12:27:00 Singer [facility] CONSENT/REFUSAL FOR 2022-01-11 12:22:15 Doctor Unassigned, [facility] DIAGNOSIS AND TREATMENT [place] [facility] RAPID INFLUENZA A/B 2021-07-04 18:18:00 Zoila Mcnulty [facility] COMP. METABOLIC PANEL 2021-07-04 17:01:00 Singer [facility] ([id number]) [facility] CBC WITH DIFF 2021-07-04 17:01:00 Singer [facility] URINALYSIS 2021-07-04 17:01:00 Singer [facility] LACTIC ACID WHOLE BLOOD 2021-07-04 17:01:00 Singer [facility] COVID-19 (ID NOW RAPID 2021-07-04 17:01:00 Singer [facility] TESTING) [facility] NOTICE OF PRIVACY 2021-07-04 16:42:56 Doctor Unassigned, [facility] PRACTICES [place] [facility] MAGNESIUM 2021-06-23 07:47:00 [facility] C-REACTIVE PROTEIN 2021-06-23 07:47:00 Alexandru Qiu [facility] BASIC METABOLIC PANEL (NA, 2021-06-23 07:47:00 Alxeandru Qiu [facility] K, CL, CO2, GLUCOSE, BUN, Medica l Branch CREATININE, CA) LIPID PANEL (81491)(TOTAL 2021-06-23 07:47:[address] [facility] CHOLESTEROL, Medical Branch TRIGLYCERIDES, HDL) SEDIMENTATION RATE 2021-06-23 07:47:00 Doskrishan [facility] CBC WITH DIFF 2021-06-23 07:47:00 Walter Cottrell [facility] CT HEAD WO CONTRAST 2021-06-22 21:58:29 DostalAlexandru [facility] MAGNESIUM 2021-06-22 18:37:00 [facility] BASIC METABOLIC PANEL (NA, 2021-06-22 18:37:00 Dostal, [facility] K, CL, CO2, GLUCOSE, BUN, Medica l Branch CREATININE, CA) CBC WITH DIFF 2021-06-22 18:37:00 [facility]os[facility]ishan [facility] US RETROPERITONEAL LIMITED 2021-06-21 21:26:13 [facility] VITAMIN B12, LEVEL 2021-06-21 11:08:00 [facility] FOLATE 2021-06-21 11:08:00 Jaz [facility] C-REACTIVE PROTEIN 2021-06-21 11:08:00 Lazarus [facility] HIV 1/2 AG-AB WITH REFLEX 2021-06-21 11:08:00 Alexandru Qiu [facility] CRITICAL CARE 2021-06-21 09:54:09 Olga Camejo [facility] CT ABDOMEN PELVIS WO 2021-06-21 04:49:43 Olga Camejo [facility] XR CHEST 1 VW 2021-06-21 04:28:00 Olga Camejo [facility] URINALYSIS 2021-06-21 04:08:00 Olga Camejo [facility] URINE CULTURE 2021-06-21 04:08:00 Olga Camejo [facility] COVID-19 (ID NOW RAPID 2021-06-21 04:08:00 Olga Camejo [facility] TESTING) Medical Branch LAB ONLY COVID 2021-06-21 04:08:00 Olga Camejo [facility] CREATINE KINASE 2021-06-21 04:01:00 Olga Camejo [facility] TEST, SERUM 2021-06-21 04:01:00 Alexandru Qiu [facility] BLOOD CULTURE SCREEN 2021-06-21 03:58:00 Olga Camejo [facility] TROPONIN I 2021-06-21 03:58:00 Olga Camejo [facility] COMP. METABOLIC PANEL 2021-06-21 03:58:00 Olga Camejo [facility] ([id number]) [facility] CBC WITH DIFF 2021-06-21 03:58:00 Olga Camejo [facility] PROTHROMBIN TIME / INR 2021-06-21 03:58:00 Olga Camejo [facility] ACTIVATED PARTIAL THRMPLAS 2021-06-21 03:58:00 Olga Camejo [facility] N-TERMINAL PRO-BNP 2021-06-21 03:58:00 Olga Camejo [facility] LACTIC ACID WHOLE BLOOD 2021-06-21 03:57:00 Olga Camejo [facility] HB ECG ROUTINE & RHYTHM 2021-06-21 03:07:42 Olga Camejo [facility] EMERGENCY SERVICES 2021-06-20 06:01:00 Doctor Unassigned, [facility] AGREEMENTS AND [place] [facility] AUTHORIZATIONS Plan of Care Planned Activity Planned Date Details Comments Source Goal Plan of Care Note [code = 81634-4] Goal Plan of Care Note [code = 28584-0] Goal Plan of Care Note [code = 69691-0] Goal Plan of Care Note [code = 41189-8] Goal Plan of Care Note [code = 54574-8] Goal Plan of Care Note [code = 86773-0] Goal Plan of Care Note [code = 23301-0] Goal Plan of Care Note [code = 24416-8] Encounters Start End Encounter Admission Attending Care Care Encounter Source Date/Time Date/Time Type Type Clinicians Facility Department ID 2023-01-22 2023-01-22 Outpatient LEANDRA HENLEY [id number] Leandra 00:00:00 00:00:00 Seybol d 2023-01-20 2023-01-20 Outpatient LEANDRA HENLEY [id number] Leandra 14:15:00 14:15:00 Seybol d 2023-01-19 2023-01-19 Outpatient LEANDRA GÓMEZ [id number] Leandra 00:00:00 00:00:00 CECIL Seybol d 2022-12-28 2022-12-28 Outpatient LEANDRA ANDREWS [id number] Leandra 00:00:00 00:00:00 GENNY Seybol d 2022-11-26 2022-11-26 Outpatient LEANDRA HERCULES [id number] Leandra 09:15:00 09:15:00 REBEKAH Seybo ld 2022-11-02 2022-11-02 Outpatient LEANDRA ANDREWS [id number] Leandra 00:00:00 00:00:00 GENNY Seybol d 2022-09-24 2022-09-24 Outpatient LAB47 LEANDRA BEARD [id number] Leandra 10:00:00 10:00:00 Seybol d 2022-09-24 2022-09-24 Outpatient LEANDRA HERCULES [id number] Leandra 09:15:00 09:15:00 REBEKAH Seybo ld 2022-09-03 2022-09-03 Outpatient LEANDRA ANDREWS [id number] Leandra 10:45:00 10:45:00 GENNY Seybol d 2022-08-26 2022-08-26 Outpatient LAB90 LEANDRA BEARD [id number] Leandra 11:50:00 11:50:00 Seybol d 2022-08-26 2022-08-26 Outpatient LEANDRA ANDREWS [id number] Leandra 11:00:00 11:00:00 GENNY Seybol d 2022-08-20 2022-08-20 Outpatient LEANDRA ANDREWS [id number] Leandra 08:00:00 08:00:00 GENNY Seybol d 2022-08-08 2022-08-08 Outpatient Efraín [facility] [id number] [facility] 12:00:00 12:00:00 Genny [address] [facility] 2022-08-08 2022-08-08 Outpatient LEANDRA ANDREWS [id number] Leandra 00:00:00 00:00:00 GENNY Seybol d 2022-08-08 2022-08-08 Outpatient LEANDRA PRINCE [id number] Leandra 00:00:00 00:00:00 DOUGLAS Seybol d 2022-08-08 2022-08-08 Outpatient LEANDRA BEARD [id number] Leandra 00:00:00 00:00:00 Seybol d 2022-08-07 2022-08-07 Outpatient LAB90 LEANDRA BEARD [id number] Leandra 10:10:00 10:10:00 Seybol d 2022-08-07 2022-08-07 Outpatient LEANDRA ANDREWS [id number] Leandra 09:30:00 09:30:00 GENNY Boykinol jair 2022-01-11 2022-01-11 Emergency X PA SAMANIEGO ERT [id number] Univers 06:47:00 10:01:00 JORGE roque [facility] 2022-01-11 2022-01-11 Emergency CHATO Samaniego [id number] Univers 06:47:00 10:01:00 Jorge RAMÍREZTAM 350.1.13.10 [facility] 4.2.7.2.686 [facility] [id number] [address] 2021-11-15 2021-11-15 Outpatient [id number] 00:00:00 00:00:00 Visit [id number] 2021-07-04 2021-07-04 Emergency PA LEWIS ERT [id number] Univers 10:56:00 13:43:00 ZOILA roque [facility] 2021-07-04 2021-07-04 Emergency PA Mcnulty [id number] Univers 10:56:00 13:43:00 Zoila RAMOS 350.1.13.10 i ty [facility] [place] [id number] [facility] 084 Branch 2021-07-04 2021-07-04 Orders Doctor BRUCE [id number] Univers 00:00:00 00:00:00 Only Unassigned, MILAGROS 350.1.13.10 ity of [place] [facility] 4.2.7.2.686 Adam as [id number] [facility] 009 Branch 2021-06-26 2021-06-26 Patient Doctor BRUCE [id number] Univers 00:00:00 00:00:00 Secure Msg Unassigned, MILAGROS 350.1.13.10 ity of [place] [facility] 4.2.7.2.686 Adam as [id number] [facility] 019 Branch 2021-06-25 2021-06-25 Transition GABBY Gutierrez [id number] Univers 00:00:00 00:00:00 of Care Claudine DICKY 350.1.13.10 i ty of [place] [id number] [facility] 403 Branch 2021-06-20 2021-06-23 Hospital Camejo Olga SCHUMACHER [id number] Univers 21:02:00 18:51:00 Encounter Gifty Wheeler 350.1.13.10 ity of [facility] 4.2.7.2.686 [place] [id number] [facility] 094 Branch 2021-06-20 2021-06-23 [facility] [id number] Univers 21:02:00 18:51:00 [facility] Results Test Description Test Time Test Comments Results Result Comments Source Lactic Acid Whole Blood 2022-01-11 12:37:07 Test Item Value Reference Range Interpretation Comme nts LACTIC ACID (test code = 9107521877) 1.22 mmol/L 0.5-2.2 Lab Interpretation (test code = 26614-6) [facility] (50497)2021-07-04 17:31:18 Test Item Value Reference Range Interpretation Comments NA (test code = 133 mmol/L 135-145 L 1679277928) K (test code = 4.9 mmol/L 3.5-5.0 6112849902) CL (test code = 104 mmol/L 98-108 2972860635) CO2 TOTAL (test code = 23 mmol/L 23-31 2268791062) AGAP (test code = 2-16 9960699598) BUN (test code = 13 mg/dL 7-23 6063808002) GLUCOSE (test code = 124 mg/dL 70-110 H 0012271334) CREATININE (test code = 0.90 mg/dL 0.50-1.04 3760813841) TOTAL BILI (test code = 0.7 mg/dL 0.1-1.8 1890478026) CALCIUM (test code = 9.3 mg/dL 8.6-10.6 6495700428) T PROTEIN (test code = 7.4 g/dL 6.3-8.2 1420732678) ALBUMIN (test code = 4.3 g/dL 3.5-5.0 5130922301) ALK PHOS (test code = 90 U/L 34-122 9442650694) ALTv (test code = 68 U/L 5-35 H 1742-6) AST(SGOT) (test code = 79 U/L 13-40 H 2285247520) eGFR (test code = mL/min/1.73m2 4488520885) BERLIN (test code = BERLIN) Association of Glomerular Filtration Rate (GFR) and Staging of Kidney Disease* + --+ --+ ------+| GFR (mL/min/1.73 m2) ?| With Kidney Damage ?| ?Without Kidney Damage+ --------+ --------+ +| ?>90 ?| ?Stage one ?| ? Normal ?+ ---+ ---+ -------+| ?60-89 ?| ?Stage two ?| ? Decreased GFR ? + --+ --+ ------+| ?30-59 ?| ?Stage three ?| ? Stage three ? + --+ --+ ------+| ?15-29 ?| ?Stage four ? | ? Stage four ?+ ---+ ---+ -------+| ?<15 (or dialysis) ? ?| ?Stage five ? | ? Stage five ?+ ---+ ---+ -------+ *Each stage assumes the associated GFR level has been in effect for at least three months. ?Stages 1 to 5, with or without kidney disease, indicate chronic kidney disease. Notes: Determination of stages one and two (with eGFR >59mL/min/1.73 m2) requires estimation of kidney damage for at least three months as defined by structural or functional abnormalities of the kidney, manifested by either:Pathological abnormalities or Markers of kidney damage (including abnormalities in the composition of the blood or urine or abnormalities in imaging tests). Lab Interpretation Abnormal (test code = 82293-2) [facility] with [id number] 17:16:16 Test Item Value Reference Range Interpretation Comments WBC (test code = See_Comment [Automated 9673-2) message] The sy stem which generated this result transmitted reference range : 4.30 - 11.10 10*3/?L. The reference range was not used to interpret this result as normal/abnormal . RBC (test code = See_Comment [Automated 689-8) message] The sy stem which generated this result transmitted reference range : 3.93 - 5.25 10*6/?L. The reference range was not used to interpret this result as normal/abnormal . HGB (test code = 14.3 g/dL 11.6-15.0 718-7) HCT (test code = 42.2 % 35.7-45.2 4544-3) MCV (test code = 97.5 fL 80.6-95.5 H 787-2) MCH (test code = 33.0 pg 25.9-32.8 H 785-6) MCHC (test code = 33.9 g/dL 31.6-35.1 786-4) RDW-SD (test code = 46.9 fL 39.0-49.9 56945-6) RDW-CV (test code = 13.1 % 12.0-15.5 788-0) PLT (test code = See_Comment [Automated 177-3) message] The sy stem which generated this result transmitted reference range : 166 - 358 10*3/ ?L. The reference r vidya was not used to interpret this result as normal/abnormal . MPV (test code = 9.4 fL 9.5-12.9 L 35835-2) NRBC/100 WBC (test See_Comment [Automat ed code = 7278349919) message] The system which generated this result transmitted reference range : 0.0 - 10.0 /100 WBCs. The refer ence range was not u sed to interpret th is result as normal/abnormal . NRBC x10^3 (test code <0.01 See_Comment [Auto mated = 6743366238) message] The s ystem which generated this result transmitted reference range : 10*3/?L. The reference range was not used to interpret this result as normal/abnormal . GRAN MAT (NEUT) % 80.1 % (test code = 770-8) IMM GRAN % (test code 0.30 % = 8912009766) LYMPH % (test code = 12.6 % 736-9) MONO % (test code = 4.6 % 5905-5) EOS % (test code = 2.1 % 713-8) BASO % (test code = 0.3 % 706-2) GRAN MAT x10^3(ANC) 4.91 10*3/uL 1.88-7.09 (test code = 5976172103) IMM GRAN x10^3 (test <0.03 0.00-0.06 code = 8667674674) LYMPH x10^3 (test code 0.77 10*3/uL 1.32-3.29 L = 731-0) MONO x10^3 (test code 0.28 10*3/uL 0.33-0.92 L = 742-7) EOS x10^3 (test code = 0.13 10*3/uL 0.03-0.39 711-2) BASO x10^3 (test code <0.03 0.01-0.07 = 704-7) Lab Interpretation Abnormal (test code = 56742-3) [facility] [id number] 17:12:38 Test Item Value Reference Range Interpretation Comments LACTIC ACID (test code = 1.69 mmol/L 0.50-2.20 7180075631) Lab Interpretation (test code = Normal 27718-1) [facility] (28054)(TOTAL CHOLESTEROL, TRIGLYCERIDES, HDL)2021-06-23 21:51:16 Test Item Value Reference Range Interpretation Comments CHOL (test code = 149 mg/dL 120-200 8267843538) HDL (test code = 20 mg/dL >50 L 4472977284) HDLC RATIO (test code = See_Comment H [Au tomated message] 4496761489) The system [employer] generated this result transmit ras reference range : <=4.5. The refe rence range was not u sed to interpret th is result as normal/abnormal . TRIG (test code = 137 mg/dL 30-170 9564807077) LDL CHOL (test code = 102 mg/dL See_Comment [Auto mated message] 78259-2) The system [employer] generated this result transmit ras reference range : <=160. The refe rence range was not u sed to interpret th is result as normal/abnormal . VLDL (test code = 27 mg/dL 5-60 7063656444) Lab Interpretation (test Abnormal code = 44748-9) [facility]-REACTIVE [id number] 17:54:55 Test Item Value Reference Range Interpretation Comments CRP (test code = 5065922651) 25.7 mg/dL <0.8 H Lab Interpretation (test code = Abnormal 84032-4) [facility] [id number] 08:35:00 Test Item Value Reference Range Interpretation Comments ESR (test code = See_Comment H [Automated message] 5139109689) The system [employer] generated this result transmitted ref erence range: 0 - 20 m m/HR. The reference r vidya was not used to interpret this result as normal/abnor mal. Lab Interpretation (test Abnormal code = 41246-5) [facility] METABOLIC PANEL (NA, K, CL, CO2, GLUCOSE, BUN, CREATININE, CA)2021-06-23 08:05:51 Test Item Value Reference Range Interpretation Comments NA (test code = 135 mmol/L 135-145 6185469331) K (test code = 3.8 mmol/L 3.5-5.0 0646537895) CL (test code = 104 mmol/L 98-108 8849442283) CO2 TOTAL (test code = 28 mmol/L 23-31 4448670114) AGAP (test code = 2-16 2540555452) BUN (test code = 13 mg/dL 7-23 6252039582) GLUCOSE (test code = 112 mg/dL 70-110 H 1974299323) CREATININE (test code = 0.73 mg/dL 0.50-1.04 6597599430) CALCIUM (test code = 8.6 mg/dL 8.6-10.6 8605544006) eGFR (test code = mL/min/1.73m2 7867665706) BERLIN (test code = BERLIN) Association of Glomerular Filtration Rate (GFR) and Staging of Kidney Disease* + --+ --+ ------+| GFR (mL/min/1.73 m2) ?| With Kidney Damage ?| ?Without Kidney Damage+ --------+ --------+ +| ?>90 ?| ?Stage one ?| ? Normal ?+ ---+ ---+ -------+| ?60-89 ?| ?Stage two ?| ? Decreased GFR ? + --+ --+ ------+| ?30-59 ?| ?Stage three ?| ? Stage three ? + --+ --+ ------+| ?15-29 ?| ?Stage four ? | ? Stage four ?+ ---+ ---+ -------+| ?<15 (or dialysis) ? ?| ?Stage five ? | ? Stage five ?+ ---+ ---+ -------+ *Each stage assumes the associated GFR level has been in effect for at least three months. ?Stages 1 to 5, with or without kidney disease, indicate chronic kidney disease. Notes: Determination of stages one and two (with eGFR >59mL/min/1.73 m2) requires estimation of kidney damage for at least three months as defined by structural or functional abnormalities of the kidney, manifested by either:Pathological abnormalities or Markers of kidney damage (including abnormalities in the composition of the blood or urine or abnormalities in imaging tests). Lab Interpretation Abnormal (test code = 73019-9) [facility] Test Item Value Reference Range Interpretation Comments MAGNESIUM (test code = 4156816074) 1.9 mg/dL 1.7-2.4 Lab Interpretation (test code = Normal 42049-0) [facility] WITH [id number] 07:55:06 Test Item Value Reference Range Interpretation Comments WBC (test code = See_Comment H [Automated 6690-2) message] The sy stem which generated this result transmitted reference range : 4.30 - 11.10 10*3/?L. The reference range was not used to interpret this result as normal/abnormal . RBC (test code = See_Comment L [Automated 789-8) message] The sy stem which generated this result transmitted reference range : 3.93 - 5.25 10*6/?L. The reference range was not used to interpret this result as normal/abnormal . HGB (test code = 11.9 g/dL 11.6-15.0 718-7) HCT (test code = 35.1 % 35.7-45.2 L 4544-3) MCV (test code = 97.0 fL 80.6-95.5 H 787-2) MCH (test code = 32.9 pg 25.9-32.8 H 785-6) MCHC (test code = 33.9 g/dL 31.6-35.1 786-4) RDW-SD (test code = 46.9 fL 39.0-49.9 72580-2) RDW-CV (test code = 13.1 % 12.0-15.5 788-0) PLT (test code = See_Comment [Automated 777-3) message] The sy stem which generated this result transmitted reference range : 166 - 358 10*3/ ?L. The reference r vidya was not used to interpret this result as normal/abnormal . MPV (test code = 9.2 fL 9.5-12.9 L 31502-0) NRBC/100 WBC (test See_Comment [Automat ed code = 9742236094) message] The system which generated this result transmitted reference range : 0.0 - 10.0 /100 WBCs. The refer ence range was not u sed to interpret th is result as normal/abnormal . NRBC x10^3 (test code <0.01 See_Comment [Auto mated = 6453192956) message] The s ystem which generated this result transmitted reference range : 10*3/?L. The reference range was not used to interpret this result as normal/abnormal . GRAN MAT (NEUT) % 63.1 % (test code = 770-8) IMM GRAN % (test code 0.50 % = 0394462425) LYMPH % (test code = 23.7 % 736-9) MONO % (test code = 10.8 % 5905-5) EOS % (test code = 1.5 % 713-8) BASO % (test code = 0.4 % 706-2) GRAN MAT x10^3(ANC) 7.43 10*3/uL 1.88-7.09 H (test code = 0625730965) IMM GRAN x10^3 (test 0.06 10*3/uL 0.00-0.06 code = 6480615314) LYMPH x10^3 (test code 2.79 10*3/uL 1.32-3.29 = 731-0) MONO x10^3 (test code 1.27 10*3/uL 0.33-0.92 H = 742-7) EOS x10^3 (test code = 0.18 10*3/uL 0.03-0.39 711-2) BASO x10^3 (test code 0.05 10*3/uL 0.01-0.07 = 704-7) Lab Interpretation Abnormal (test code = 96001-1) [facility] WITH [id number] 19:32:51 Test Item Value Reference Range Interpretation Comments WBC (test code = See_Comment H [Automated 1526-2) message] The sy stem which generated this result transmitted reference range : 4.30 - 11.10 10*3/?L. The reference range was not used to interpret this result as normal/abnormal . RBC (test code = See_Comment [Automated 778-8) message] The sy stem which generated this result transmitted reference range : 3.93 - 5.25 10*6/?L. The reference range was not used to interpret this result as normal/abnormal . HGB (test code = 12.9 g/dL 11.6-15.0 718-7) HCT (test code = 38.5 % 35.7-45.2 4544-3) MCV (test code = 97.2 fL 80.6-95.5 H 787-2) MCH (test code = 32.6 pg 25.9-32.8 785-6) MCHC (test code = 33.5 g/dL 31.6-35.1 786-4) RDW-SD (test code = 46.6 fL 39.0-49.9 99459-5) RDW-CV (test code = 12.9 % 12.0-15.5 788-0) PLT (test code = See_Comment H [Automated 777-3) message] The sy stem which generated this result transmitted reference range : 166 - 358 10*3/ ?L. The reference r vidya was not used to interpret this result as normal/abnormal . MPV (test code = 9.4 fL 9.5-12.9 L 78416-9) NRBC/100 WBC (test See_Comment [Automat ed code = 3984717545) message] The system which generated this result transmitted reference range : 0.0 - 10.0 /100 WBCs. The refer ence range was not u sed to interpret th is result as normal/abnormal . NRBC x10^3 (test code <0.01 See_Comment [Auto mated = 6240309508) message] The s ystem which generated this result transmitted reference range : 10*3/?L. The reference range was not used to interpret this result as normal/abnormal . GRAN MAT (NEUT) % 63.6 % (test code = 770-8) IMM GRAN % (test code 0.60 % = 5430718203) LYMPH % (test code = 23.0 % 736-9) MONO % (test code = 11.7 % 5905-5) EOS % (test code = 0.8 % 713-8) BASO % (test code = 0.3 % 706-2) GRAN MAT x10^3(ANC) 8.94 10*3/uL 1.88-7.09 H (test code = 7295753106) IMM GRAN x10^3 (test 0.08 10*3/uL 0.00-0.06 H code = 0787880050) LYMPH x10^3 (test code 3.23 10*3/uL 1.32-3.29 = 731-0) MONO x10^3 (test code 1.64 10*3/uL 0.33-0.92 H = 742-7) EOS x10^3 (test code = 0.11 10*3/uL 0.03-0.39 711-2) BASO x10^3 (test code 0.04 10*3/uL 0.01-0.07 = 704-7) Lab Interpretation Abnormal (test code = 36960-1) [facility] METABOLIC PANEL (NA, K, CL, CO2, GLUCOSE, BUN, CREATININE, CA)2021-06-22 19:20:43 Test Item Value Reference Range Interpretation Comments NA (test code = 139 mmol/L 135-145 2753861944) K (test code = 4.0 mmol/L 3.5-5.0 7458970700) CL (test code = 107 mmol/L 98-108 4639037643) CO2 TOTAL (test code 23 mmol/L 23-31 = 0586566552) AGAP (test code = 2-16 1004971054) BUN (test code = 11 mg/dL 7-23 4753307968) GLUCOSE (test code = 100 mg/dL 70-110 5795310799) CREATININE (test code 0.75 mg/dL 0.50-1.04 = 3687835958) CALCIUM (test code = 9.1 mg/dL 8.6-10.6 0689499487) eGFR (test code = mL/min/1.73m2 2959557981) BERLIN (test code = BERLIN) Association of Glomerular Filtration Rate (GFR) and Staging of Kidney Disease* + + +- +| GFR (mL/min/1.73 m2) ?| With Kidney Damage ?| ?Without Kidney Damage+ ------+ ----+ ------+| ?>90 ?| ?Stage one ?| ? Normal ?+ -+ + -+| ?60-89 ?| ?Stage two ?| ? Decreased GFR ? + + +- +| ?30-59 ?| ?Stage three ?| ? Stage three ? + + +- +| ?15-29 ?| ?Stage four ? | ? Stage four ?+ -+ + -+| ?<15 (or dialysis) ? ?| ?Stage five ? | ? Stage five ?+ -+ + -+ *Each stage assumes the associated GFR level has been in effect for at least three months. ?Stages 1 to 5, with or without kidney disease, indicate chronic kidney disease. Notes: Determination of stages one and two (with eGFR >59mL/min/1.73 m2) requires estimation of kidney damage for at least three months as defined by structural or functional abnormalities of the kidney, manifested by either:Pathological abnormalities or Markers of kidney damage (including abnormalities in the composition of the blood or urine or abnormalities in imaging tests). [facility]20[facility]43 Test Item Value Reference Range Interpretation Comments MAGNESIUM (test code = 8254050349) 1.9 mg/dL 1.7-2.4 Lab Interpretation (test code = Normal 23726-9) [facility] [id number] 18:07:54 Test Item Value Reference Range Interpretation Comments CRP (test code = 3244212632) 25.8 mg/dL <0.8 H Lab Interpretation (test code = Abnormal 05529-2) [facility], [id number] 00:00:00 Test Item Value Reference Range Interpretation Comments CULTURE, URINE (test SPECIMEN NUMBER: code = 47979) [id number] HIV 1/2 AG-AB WITH [id number] 17:13:51 Test Item Value Reference Range Interpretation Comments HIV Negative Negative Semi-quantitative (test code = 20892-1) BERLIN (test code = Non-reactive for HIV-1 BERLIN) antigen and HIV-1/HIV-2 antibodies. ?No laboratory evidence of HIV infection. ?Repeat in 2-4 weeks if acute HIV infection is suspected. [facility], [id number] 15:02:02 Test Item Value Reference Range Interpretation Comments PREG SERUM (test code Negative = 9768113983) BERLIN (test code = BERLIN) Less than 10 IU/L. ?If low titer or ectopic is suspected, resubmit specimen in 48-72 hours. [facility] 13:21:45 Test Item Value Reference Range Interpretation Comments FOLATE SER (test code = 3910308425) 8.2 ng/mL 3.0-20.0 Lab Interpretation (test code = Normal 08800-1) [facility] B12, [id number] 12:58:44 Test Item Value Reference Range Interpretation Comments VIT B12 (test code = 213 pg/mL 240-930 L 5138126855) BERLIN (test code = BERLIN) Biotin has been reported to cause a positive bias, interpret results relative to patient's use of biotin. Lab Interpretation (test Abnormal code = 86670-2) [facility] WITH [id number] 05:04:07 Test Item Value Reference Range Interpretation Comments WBC (test code = See_Comment H [Automated 1790-2) message] The system which generated this result transmit ras reference range : 4.30 - 11.10 10*3/?L. The reference range was not used to interpret this result as normal/abnormal . RBC (test code = See_Comment [Automated 689-8) message] The system which generated this result transmit ras reference range : 3.93 - 5.25 10*6/?L. The reference range was not used to interpret this result as normal/abnormal . HGB (test code = 14.7 g/dL 11.6-15.0 718-7) HCT (test code = 43.1 % 35.7-45.2 4544-3) MCV (test code = 96.2 fL 80.6-95.5 H 787-2) MCH (test code = 32.8 pg 25.9-32.8 785-6) MCHC (test code = 34.1 g/dL 31.6-35.1 786-4) RDW-SD (test code = 46.5 fL 39.0-49.9 87865-9) RDW-CV (test code = 12.9 % 12.0-15.5 788-0) PLT (test code = See_Comment H [Automated 777-3) message] The system which generated this result transmit ras reference range : 166 - 358 10*3/ ?L. The reference range was not u sed to interpret th is result as normal/abnormal . MPV (test code = 9.5 fL 9.5-12.9 89871-0) NRBC/100 WBC (test See_Comment [Automat ed code = 6123657139) message] The system which generated this result transmit ras reference range : 0.0 - 10.0 /100 WBCs. The reference range was not used to interpret this result as normal/abnormal . NRBC x10^3 (test code <0.01 See_Comment [Auto mated = 6666488122) message] The system which generated this result transmit ras reference range : 10*3/?L. The reference range was not used to interpret this result as normal/abnormal . GRAN MAT (NEUT) % 75.6 % (test code = 770-8) IMM GRAN % (test code 1.10 % = 3477250714) LYMPH % (test code = 12.4 % 736-9) MONO % (test code = 10.4 % 5905-5) EOS % (test code = 0.1 % 713-8) BASO % (test code = 0.4 % 706-2) GRAN MAT x10^3(ANC) 18.55 10*3/uL 1.88-7.09 H (test code = 7213632044) IMM GRAN x10^3 (test 0.27 10*3/uL 0.00-0.06 H code = 7992007360) LYMPH x10^3 (test code 3.04 10*3/uL 1.32-3.29 = 731-0) MONO x10^3 (test code 2.55 10*3/uL 0.33-0.92 H = 742-7) EOS x10^3 (test code = <0.03 0.03-0.39 L 711-2) BASO x10^3 (test code 0.09 10*3/uL 0.01-0.07 H = 704-7) Lab Interpretation Abnormal (test code = 77432-7) [facility]NA [id number] 04:44:20 Test Item Value Reference Interpretation Comments Range TROPONIN I (test 0.004 ng/mL See_Comment [Automated code = 6819808402) message] The system which generated this result transmitted reference range : <=0.034. The reference range was not used to interpret this result as normal/abnormal . BERLIN (test code = Reference (Normal) BERLIN) Range (defined by the 99th percentile reference limit): <= 0.034 ng/mL Note: Cardiac troponin begins to rise 3-4 hours after the onset of ischemia. Repeat in 4-6 hours if the sample was drawn within 3-4 hours of the onset of the symptom and found normal. Diagnosis of myocardial injury is made with acute changes in cTn concentrations with at least one serial sample above the 99th percentile upper reference limit (URL), taken together with the patient's clinical presentation. Biotin has been reported to cause a negative bias, interpret results relative to patient's use of biotin. Lab Interpretation Normal (test code = 96349-9) [facility]MINAL [id number] 04:41:23 Test Item Value Reference Range Interpretation Comments NT-proBNP (test code 101 pg/mL See_Comment [Autom ated = 1097770934) message] The system which generated this result transmitted reference range : <=125. The reference range was not used to interpret this result as normal/abnormal . BERLIN (test code = BERLIN) Biotin has been reported to cause a negative bias, interpret results relative to patient's use of biotin. Lab Interpretation Normal (test code = 06126-6) [facility] THRMPLAS [id number] 04:40:03 Test Item Value Reference Range Interpretation Comments APTT Patient (test See_Comment [Automat ed code = 3173-2) message] The system which generated this result transmitted reference range : 23 - 38 Seconds . The reference range was not used to interpr et this result as normal/abnormal . BERLIN (test code = BERLIN) The [facility] patient population mean normal value for aPTT is 30 seconds. Lab Interpretation Normal (test code = 09438-2) [facility] HospitalCREAT[facility] [id number] 04:38:17 Test Item Value Reference Range Interpretation Comments CK (test code = 5481777203) <20 33-194 L Lab Interpretation (test code = Abnormal 71489-7) [facility] HospitalPROTHROMBIN TIME / [id number] 04:38:02 Test Item Value Reference Range Interpretation Comments PROTIME PATIENT (test See_Comment [Auto mated message] code = 5964-2) The system wh ich generated this result transmitted ref erence range: 12.0 - 1 4.7 Seconds. The re ference range was not u sed to interpret this result as normal/abnor mal. INR (test code = 6301-6) Nor mal INR <1.1; Warfarin Therap eutic range 2.0 to 3. 0 or 2.5 to 3.5, dep ending upon the indica tions. Lab Interpretation (test Normal code = 04595-6) [facility]. METABOLIC PANEL (05495)2021-06-21 04:34:40 Test Item Value Reference Range Interpretation Comments NA (test code = 134 mmol/L 135-145 L 1978303177) K (test code = 4.3 mmol/L 3.5-5.0 7535887049) CL (test code = 100 mmol/L 98-108 6308685722) CO2 TOTAL (test code = 26 mmol/L 23-31 3982082119) AGAP (test code = 2-16 9235242747) BUN (test code = 16 mg/dL 7-23 3460844268) GLUCOSE (test code = 112 mg/dL 70-110 H 2497391917) CREATININE (test code = 0.72 mg/dL 0.50-1.04 0815803400) TOTAL BILI (test code = 1.1 mg/dL 0.1-1.3 8895749099) CALCIUM (test code = 9.2 mg/dL 8.6-10.6 3439330681) T PROTEIN (test code = 6.9 g/dL 6.3-8.2 4246718723) ALBUMIN (test code = 4.1 g/dL 3.5-5.0 5880172850) ALK PHOS (test code = 104 U/L 34-122 3017794718) ALTv (test code = 21 U/L 5-35 1742-6) AST(SGOT) (test code = 28 U/L 13-40 7706684879) eGFR (test code = mL/min/1.73m2 6343448590) BERLIN (test code = BERLIN) Association of Glomerular Filtration Rate (GFR) and Staging of Kidney Disease* + --+ --+ ------+| GFR (mL/min/1.73 m2) ?| With Kidney Damage ?| ?Without Kidney Damage+ --------+ --------+ +| ?>90 ?| ?Stage one ?| ? Normal ?+ ---+ ---+ -------+| ?60-89 ?| ?Stage two ?| ? Decreased GFR ? + --+ --+ ------+| ?30-59 ?| ?Stage three ?| ? Stage three ? + --+ --+ ------+| ?15-29 ?| ?Stage four ? | ? Stage four ?+ ---+ ---+ -------+| ?<15 (or dialysis) ? ?| ?Stage five ? | ? Stage five ?+ ---+ ---+ -------+ *Each stage assumes the associated GFR level has been in effect for at least three months. ?Stages 1 to 5, with or without kidney disease, indicate chronic kidney disease. Notes: Determination of stages one and two (with eGFR >59mL/min/1.73 m2) requires estimation of kidney damage for at least three months as defined by structural or functional abnormalities of the kidney, manifested by either:Pathological abnormalities or Markers of kidney damage (including abnormalities in the composition of the blood or urine or abnormalities in imaging tests). Lab Interpretation Abnormal (test code = 40726-8) [facility]"
[2023-03-13 07:36] LABS: SARS-CoV-2 Antigen Rapid Res Negative (Negative)
--- NOTE | 2023-03-13 07:43 | EDPHYS ---
Physician Documentation [facility] Name: Carmella Garcia Age: 42 yrs Sex: Female : 1980 Arrival Date: 03/13/2023 Time: 06:39 Bed 21 Private MD: ED Physician Enrique Sigala HPI: 03/13 07:28 This 42 yrs old Female presents to ER via Ambulatory with complaints of Flu Symptoms. rt 07:28 Patient with history of lupus presents to the ED with body aches, stiff joints rt consistent with prior episodes of lupus. The patient states that she has positive sick contacts with her daughter. Denies cough, chills, fever. Denies other acute complaints at this time, symptoms are mild in severity, no other aggravating elevating factors.. Historical: - Allergies: 06:53 Sulfa (Sulfonamide Antibiotics); kl - Home Meds: 06:53 Methotrexate Sodium Oral [Active]; Zofran Oral [Active]; Lexapro Oral [Active]; kl - PMHx: 06:53 Lupus erythematosus; kl - PSHx: 06:53 Appendectomy; Total abdominal hysterectomy; section; Exploratory laparotomy; kl - Immunization history:: Adult Immunizations not up to date. - Social history:: Smoking status: Patient reports the use of cigarette tobacco products, smokes one pack cigarettes per day. - Family history:: not pertinent. ROS: 07:28 Cardiovascular: Negative for chest pain, palpitations, and edema, Respiratory: Negative rt for shortness of breath, cough, wheezing, and pleuritic chest pain, Abdomen/GI: Negative for abdominal pain, nausea, vomiting, diarrhea, and constipation, Skin: Negative for injury, rash, and discoloration, Neuro: Negative for headache, weakness, numbness, tingling, and seizure, 07:28 Constitutional: Positive for body aches, malaise, 07:28 MS/extremity: Positive for Joint stiffness, negative for injury, Exam: 07:28 Constitutional: This is a well developed, well nourished patient who is awake, alert, rt and in no acute distress. Head/Face: Normocephalic, atraumatic. Chest/axilla: Normal chest wall appearance and motion. Nontender with no deformity. No lesions are appreciated. Cardiovascular: Regular rate and rhythm with a normal S1 and S2. No gallops, murmurs, or rubs. Normal PMI, no JVD. No pulse deficits. Respiratory: Lungs have equal breath sounds bilaterally, clear to auscultation and percussion. No rales, rhonchi or wheezes noted. No increased work of breathing, no retractions or nasal flaring. Abdomen/GI: Soft, non-tender, with normal bowel sounds. No distension or tympany. No guarding or rebound. No evidence of tenderness throughout. Skin: Warm, dry with normal turgor. Normal color with no rashes, no lesions, and no evidence of cellulitis. MS/ Extremity: Pulses equal, no cyanosis. Neurovascular intact. Full, normal range of motion. Neuro: Awake and alert, GCS 15, oriented to person, place, time, and situation. Cranial nerves II-XII grossly intact. Motor strength 5/5 in all extremities. Sensory grossly intact. Cerebellar exam normal. Normal gait. Psych: Awake, alert, with orientation to person, place and time. Behavior, mood, and affect are within normal limits. Vital Signs: 06:51 BP 99 / 62; Pulse 73; Resp 18; Temp 97.9(TE); Pulse Ox 98% ; Weight 99.79 kg (R); kl Height 5 ft. 9 in. ; Pain 7/10; 06:51 Body Mass Index 32.49 (99.79 kg, 175.26 cm) kl 06:51 Pain Scale: Adult kl MDM: 06:59 Patient medically screened. [facility] 07:43 Differential Diagnosis Lupus, flu, pharyngitis. Data reviewed: vital signs, nurses rt notes. Test considered but Not performed: Labs: Stable vital signs, well-appearing, labs not indicated. Care significantly affected by the following chronic conditions: Lupus. Counseling: I had a detailed discussion with the patient and/or guardian regarding the historical points, exam findings, and any diagnostic results supporting the discharge/admit diagnosis, the need for outpatient follow up. 03/13 06:58 Order name: SARS RAPID; Complete Time: 07:37 nacho 03/13 06:58 Order name: Flu; Complete Time: 07:37 nacho Administered Medications: No medications were administered Disposition Summary: 03/13/23 07:42 Discharge Ordered Notes: Location: Home rt Problem: an acute exacerbation rt Symptoms: are unchanged rt Condition: Stable rt Diagnosis - Lupus flare rt Followup: rt - With: Private Physician - When: 2 - 3 days - Reason: Discharge Instructions: - Discharge Summary Sheet rt - Systemic Lupus Erythematosus, Adult rt Forms: - Medication Reconciliation Form rt - Thank You Letter rt - Antibiotic Education rt - Prescription Opioid Use rt - Patient Portal Instructions rt - Leadership Thank You Letter rt Prescriptions: - ondansetron 4 mg Oral Tablet,disintegrating - take 1 tablet ORAL route every 6 hours; 60 tablet; Refills: 0, Product rt Selection Permitted - Amoxicillin 875 mg Oral Tablet - take 1 tablet ORAL route every 12 hours for 10 days; 20 tablet; Refills: 0, rt Product Selection Permitted - Medrol (Atul) 4 mg Oral Tablets, Dose Pack - take 1 tablet ORAL route as directed - follow package instructions; 1 packet; rt Refills: 0, Product Selection Permitted Signatures: Dispatcher [employer] Tiffanie Del Toro, Michael Brice RN, MD MD cha [place], Ryan, MD MD rt
--- NOTE | 2023-03-13 07:43 | ER ---
Nurse's Notes [facility] Name: Carmella Garcia Age: 42 yrs Sex: Female : 1980 Arrival Date: 03/13/2023 Time: 06:39 Bed 21 Private MD: Diagnosis: Lupus flare Presentation: 03/13 06:51 Chief complaint: Patient states: aching and feeling ill after daughter woke her up this morning. Coronavirus screen: Vaccine status: Patient reports receiving the 2nd dose of the covid vaccine. Ebola Screen: Patient negative for fever greater than or equal to 101.5 degrees Fahrenheit, and additional compatible Ebola Virus Disease symptoms. Initial Sepsis Screen: Does the patient meet any 2 criteria? No. Patient's initial sepsis screen is negative. Does the patient have a suspected source of infection? No. Patient's initial sepsis screen is negative. Risk Assessment: Do you want to hurt yourself or someone else? Patient reports no desire to harm self or others. Onset of symptoms was March 13, 2023. 06:51 Method Of Arrival: Ambulatory 06:51 Acuity: SUSHANT 4 Triage Assessment: 06:55 General: Appears in no apparent distress. Behavior is calm, cooperative. Pain: Complains of pain in gneralized body aches and joint stiffness. Historical: - Allergies: 06:53 Sulfa (Sulfonamide Antibiotics); kl - Home Meds: 06:53 Methotrexate Sodium Oral [Active]; Zofran Oral [Active]; Lexapro Oral [Active]; kl - PMHx: 06:53 Lupus erythematosus; - PSHx: 06:53 Appendectomy; Total abdominal hysterectomy; section; Exploratory laparotomy; - Immunization history:: Adult Immunizations not up to date. - Social history:: Smoking status: Patient reports the use of cigarette tobacco products, smokes one pack cigarettes per day. - Family history:: not pertinent. Screenin:14 [facility] ED Fall Risk Assessment (Adult) History of falling in the last 3 months, kc6 including since admission No falls in past 3 months (0 pts) Confusion or Disorientation No (0 pts) Intoxicated or Sedated No (0 pts) Impaired Gait No (0 pts) Mobility Assist Device Used No (0 pt) Altered Elimination No (0 pt) Score/Fall Risk Level 0 - 2 = Low Risk. Abuse screen: Denies threats or abuse. Denies injuries from another. Nutritional screening: No deficits noted. Tuberculosis screening: No symptoms or risk factors identified. Assessment: 07:14 General: Appears in no apparent distress. comfortable, Behavior is calm, cooperative, kc6 appropriate for age, Reports feeling ill for 12-24 hours. Pain: Denies pain. Neuro: Level of Consciousness is awake, alert, obeys commands, Oriented to person, place, time, situation, Appropriate for age. Cardiovascular: Denies chest pain, Capillary refill < 3 seconds. Respiratory: Reports cough that is Airway is patent Trachea midline Respiratory effort is even, unlabored, Respiratory pattern is regular, symmetrical, Denies shortness of breath. GI: No signs and/or symptoms were reported involving the gastrointestinal system. : No signs and/or symptoms were reported regarding the genitourinary system. EENT: Reports difficulty swallowing nasal congestion. Derm: No signs and/or symptoms reported regarding the dermatologic system. Skin is intact, is healthy with good turgor, Skin is pink, warm \T\ dry. Musculoskeletal: No signs and/or symptoms reported regarding the musculoskeletal system. Circulation, motion, and sensation intact. Capillary refill < 3 seconds, Range of motion: intact in all extremities. Vital Signs: 06:51 BP 99 / 62; Pulse 73; Resp 18; Temp 97.9(TE); Pulse Ox 98% ; Weight 99.79 kg (R); kl Height 5 ft. 9 in. ; Pain 7/10; 06:51 Body Mass Index 32.49 (99.79 kg, 175.26 cm) kl 06:51 Pain Scale: Adult ED Course: 06:43 Patient arrived in ED. gm2 06:53 Triage completed. kl 06:57 Michael Oropeza MD is Attending Physician. nacho 07:01 Attending Physician role handed off by Michael Oropeza MD rt 07:01 Enrique Sigala MD is Attending Physician. rt 07:06 Flu Sent. kj1 07:06 SARS RAPID Sent. kj1 07:08 Paige Garrett, BALTAZAR is Primary Nurse. kc6 07:14 Arm band placed on. kc6 07:14 Patient has correct armband on for positive identification. Bed in low position. Call kc6 light in reach. Side rails up X 1. Client placed on continuous cardiac and pulse oximetry monitoring. NIBP monitoring applied. 07:53 No provider procedures requiring assistance completed. Patient did not have IV access kc6 during this emergency room visit. Administered Medications: No medications were administered Medication: 07:54 VIS not applicable for this client. kc6 Outcome: 07:42 Discharge ordered by . rt 07:53 Discharged to home ambulatory, kc6 07:53 Condition: stable 07:53 Discharge instructions given to patient, Instructed on discharge instructions, follow up and referral plans. medication usage, Demonstrated understanding of instructions, follow-up care, medications, Prescriptions given X 3, :54 Patient left the ED. kc6 Signatures: Tiffanie Merino, Michael Brice RN, MD MD cha Jackson, Kandis kj1 Paige Garrett RN RN kc6 Enrique Sigala MD MD rt Mitchell, Ginger gm2
[2023-03-13 08:00] VITALS: BP 99/62; TEMP 97.9; O2SAT 98
== END 2023-03-13 07:54 | disposition home or self-care (01) ==
LOC: ER 06:39
DX: M32.9 Systemic lupus erythematosus, unspecified (principal); F17.210 Nicotine dependence, cigarettes, uncomplicated; Z11.52 Encounter for screening for COVID-19; Z88.2 Allergy status to sulfonamides
CPT/HCPCS: 36415; 87804; 87811; 99283

== ENCOUNTER → 2023-06-26 | Emergency (ER) | payer OTHER ==
[~2023-06-26] MED LIST: CLINDAMYCIN 600MG/D5W 50 ML IV ONE; MORPHINE 4 MG/ML SYR ONE
--- OUTSIDE RECORDS SUMMARY | 2023-06-26 23:26 | XMS REPORT | Continuity of Care Document ---
Author Name Unknown Address [address] [facility] [place] [address] 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 Phone Sari Albina HALL Primary Care Physician AGUSTO TUCKER Attending Clinician Unavailable GENNY ANDREWS Attending Clinician UnaANA LUISA Caldwell Attending Clinician Unavailable ALFREDO VIRAMONTES Attending Clinician Unavailable DORY MELGAR Attending Clinician Unavailable SHAREE CAM Attending Clinician Unavailable JUSTIN HENLEY Attending Clinician UnavailCECIL Doyle Attending Clinician Unavailab REBEKAH Bates Attending Clinician Unavail able LAB47 Attending Clinician Unavailable LAB90 Attending Clinician Unavailable Genny Andrews Attending Clinician Unavailable DOUGLAS PRINCE Attending Clinician Unavailable JORGE SAMANIEGO Attending Clinician Unavailable Jorge Samaniego DO Attending Clinician [phone] ZOILA MCNULTY Attending Clinician Unavailable Zoila Camejo Attending Clinician [phone] Doctor Unassigned, [place] Attending Clinician U wenceslao Gutierrez RN, Claudine Mccauley Attending Clinician [phone] Olga Camejo MD Attending Clinician [phone] Gifty Wheeler MD Attending Clinician [phone] Mary Ledbetter MD Attending Clinician [phone] MARY LEDBETTER Attending Clinician Unavailable Genny Andrews Admitting Clinician Unavailable JORGE SAMANIEGO Admitting Clinician Unavailable Gifty Wheeler MD Admitting Clinician [phone] GIFTY WHEELER Admitting Clinician Unavailable Payers Payer Name Policy Type Policy Number Effective Date Expirati on Date Source [employer] 94 ON 9 [id number] 2022 00:00:00 COMMERCIAL NON-CONTRACT GENERIC [id number] 2021 00:00:00 Problems Condition Name Condition Details Condition Category Status Onset Date Resolution Date Last Treatment Date Treating Clinician Comments Source Pyelonephr itis Pyelonephr itis Disease Active 06-21 00:00: 00 [facility] Obesity (BMI 30-39.9) Obesity (BMI 30-39.9) Disease Active 05-14 00:00: 00 [facility] Allergies, Adverse Reactions, Alerts Allergy Name Allergy Type Status Severity Reaction(s) Onset Date Inactive Date Treating Clinician Comments Source Sulfa (Sulfona mide Antibiot ics) Propensi ty to adverse reaction to drug Active 11-15 00:00: 00 Codeine Propensi ty to adverse reaction s Active Nausea and Vomiting 11-15 00:00: 00 Leandra Jacob - Externa l SULFA (SULFONA MIDE ANTIBIOT ICS) Drug Class Active Other-Cmnt 07-04 00:00: 00 [facility] Sulfa (Sulfona mide Antibiot ics) Propensi ty to adverse reaction s Active Other - See comments 07-04 00:00: 00 Rash, fever [facility] Sulfa Drugs Propensi ty to adverse reaction s Active Other 07-04 00:00: 00 Rash, fever Leandra Jacob - Externa l No Known Allergie s DA Active U 01-23 00:00: 00 [facility] NO KNOWN ALLERGIE S Drug Class Active [facility] Social History Social Habit Start Date Stop Date Quantity Comments Source Gender identity Lindsay Jacob - External History of tobacco use Cigarette Smoker Leandra crandall - External [facility] 2023-03-29 00:00:00 2023-03-29 00:00:00 Lifetime non-drinker (finding) Leandra Jacob - External Exposure to SARS-CoV-2 (event) 2022-01-01 00:00:00 2022-01-11 06:41:00 Not sure [facility] History of Social function 2022-01-11 00:00:00 2022-01-11 00:00:00 [facility] Tobacco use and exposure 2021-06-21 00:00:00 2021-06-21 00:00:00 User of smokeless tobacco [facility] Tobacco Comment 2021-06-21 00:00:00 2021-06-21 00:00:00 occasional smoker 1-3 sticks per week [facility] Sex Assigned At 1980 00:00:00 1980 00:00:00 Leandra Jacob - External Smoking Status Start Date Stop Date Source Smokes tobacco daily 2022-08-07 00:00:00 Leandra Jacob - External Occasional tobacco smoker 2021-06-21 00:00:00 [facility] Medications Ordered Medication Name Filled Medication Name Start Date Stop Date Current Medication? Ordering Clinician Indication Dosage Frequency Signature (SIG) Comments Components Source Ondansetron (ZOFRAN) 4 MG oral TABLET DISPERSIBLE 06-23 00:00: 00 Yes [id number] 4mg Q.[id number] [id number] 3D Take 1 tablet (4 mg total) by mouth every 8 hours as needed. Leandra hidalgo Azithromyci n 250 MG oral Tablet 06-23 00:00: 00 06-29 05:59 :00 Yes [id number] Take 2 tablets by mouth on day 1 then 1 tablet by mouth daily for 4 days thereafter .. Leandra hidalgo Bupropion HCL XL 150 MG OR TB24 05-15 00:00: 00 Yes [id number] 150mg Take 1 tablet (150 mg total) by mouth daily. Leandra hidalgo Escitalopra m Oxalate 10 MG oral Tablet 05-15 00:00: 00 Yes [id number] 10mg Take 1 tablet (10 mg total) by mouth daily. Leandra Nidia hidalgo methylPREDN ISolone 4 MG oral Tablet Therapy Pack 2022-05 00:00: 00 Yes [id number] 1{vignesh} Take 1 vignesh by mouth See Admin Instructio ns Use as directed. Leandra Nidia hidalgo methylPREDN ISolone 4 MG oral Tablet Therapy Pack 2022-05 00:00: 00 Yes [id number] 1{vignesh} Take 1 vignesh by mouth See Admin Instructio ns Use as directed. Leandra hidalgo Benzonatate 200 MG oral Capsule 2022-05 00:00: 00 Yes [id number] 200mg Q.93061818 [id number] 3D Take 1 capsule (200 mg total) by mouth 3 times daily as needed for cough. Leandra hidalgo Benzonatate 200 MG oral Capsule 2022-05 00:00: 00 Yes [id number] 200mg Q.33349544 [id number] 3D Take 1 capsule (200 mg total) by mouth 3 times daily as needed for cough. Leandra hidalgo Benzonatate 200 MG oral Capsule 2022-05 00:00: 00 Yes [id number] 200mg Q.74308317 [id number] 3D Take 1 capsule (200 mg total) by mouth 3 times daily as needed for cough. Leandra hidalgo Oseltamivir Phosphate (Tamiflu) 75 MG oral Capsule 2022-05 00:00: 00 04-04 05:59 :00 Yes [id number] 75mg Take 1 capsule (75 mg total) by mouth 2 times daily for 5 days. Leandra hidalgo Oseltamivir Phosphate (Tamiflu) 75 MG oral Capsule 2022-05 00:00: 00 04-04 05:59 :00 Yes [id number] 75mg Take 1 capsule (75 mg total) by mouth 2 times daily for 5 days. Leandra hidalgo Ondansetron HCl 4 MG oral Tablet 01-20 00:00: 00 Yes [id number] 4mg Q.[id number] [id number] 3D Take 1 tablet (4 mg total) by mouth every 8 hours as needed for nausea. Leandra Baeza gwen FLUTICASONE PROPIONATE, NASAL, 50 MCG/ACT nasal Suspension 01-20 00:00: 00 Yes [id number] 50ug Use 1 spray (50 mcg total) in each nostril daily. Leandra hidalgo Ondansetron HCl 4 MG oral Tablet 01-20 00:00: 00 Yes [id number] 4mg Q.87514649 [id number] 3D Take 1 tablet (4 mg total) by mouth every 8 hours as needed for nausea. Leandra hidalgo FLUTICASONE PROPIONATE, NASAL, 50 MCG/ACT nasal Suspension 01-20 00:00: 00 Yes [id number] 50ug Use 1 spray (50 mcg total) in each nostril daily. Leandra hidalgo Ondansetron HCl 4 MG oral Tablet 01-20 00:00: 00 Yes [id number] 4mg Q.54961779 [id number] 3D Take 1 tablet (4 mg total) by mouth every 8 hours as needed for nausea. Leandra Wells Externa gwen FLUTICASONE PROPIONATE, NASAL, 50 MCG/ACT nasal Suspension 01-20 00:00: 00 Yes [id number] 50ug Use 1 spray (50 mcg total) in each nostril daily. Leandra Boykinold - Externa gwen FLUTICASONE PROPIONATE, NASAL, 50 MCG/ACT nasal Suspension 01-20 00:00: 00 Yes [id number] 50ug Use 1 spray (50 mcg total) in each nostril daily. Leandra Wells Externa gwen Ondansetron HCl 4 MG oral Tablet 01-20 00:00: 00 06-23 00:00 :00 No [id number] 4mg Q.69483473 [id number] 3D Take 1 tablet (4 mg total) by mouth every 8 hours as needed for nausea. Leandra hidalgo PAXLOVID STANDARD (30) (300/100) Therapy Pack 01-20 00:00: 00 01-26 04:59 :00 No [id number] Take two 150 mg nirmatrelv ir (pink) tablets with one 100 mg ritonavir (white) tablet by mouth two times daily for 5 days. Leandra hidalgo Bupropion HCL XL 150 MG OR TB24 8 00:00: 00 Yes [id number] 150mg TAKE ONE (1) TABLET (150 MG TOTAL) BY MOUTH DAILY. Leandra hidalgo Escitalopra m Oxalate 10 MG oral Tablet 01-03 00:00: 00 Yes [id number] 10mg TAKE ONE (1) TABLET (10 MG TOTAL) BY MOUTH DAILY. Leandra hidalgo Bupropion HCL XL 150 MG OR TB24 01-03 00:00: 00 Yes [id number] 150mg TAKE ONE (1) TABLET (150 MG TOTAL) BY MOUTH DAILY. Leandra hidalgo Escitalopra m Oxalate 10 MG oral Tablet 01-03 00:00: 00 Yes [id number] 10mg TAKE ONE (1) TABLET (10 MG TOTAL) BY MOUTH DAILY. Leandra hidalgo Bupropion HCL XL 150 MG OR TB24 825 00:00: 00 Yes [id number] 150mg TAKE ONE (1) TABLET (150 MG TOTAL) BY MOUTH DAILY. Leandra hidalgo Escitalopra m Oxalate 10 MG oral Tablet 01-03 00:00: 00 Yes [id number] 10mg TAKE ONE (1) TABLET (10 MG TOTAL) BY MOUTH DAILY. Leandra hidalgo Methylpredn isolone Acetate (DEPO-MEDRO L) [80 mg/ml] 5-16 14:45: 00 09-24 14:37 :00 No [id number] 80mg Leandra hidalgo Methylpredn isolone Acetate (DEPO-MEDRO L) [80 mg/ml] 09-24 14:45: 00 09-24 14:37 :00 No [id number] 80mg 80 mg, intramuscu lar, ONCE, On Fri09/24/22 at 0945, For 1 dose Leandra hidalgo Methotrexat e 50 MG/2ML injection Solution 09-24 00:00: 00 Yes [id number] Inject 0.4ml SC once a week Leandra Baeza gwen Methotrexat e 50 MG/2ML injection Solution 09-24 00:00: 00 Yes [id number] Inject 0.4ml SC once a week Leandra hidalgo Methotrexat e 50 MG/2ML injection Solution 09-24 00:00: 00 Yes [id number] Inject 0.4ml SC once a week Leandra Baeza gwen Methotrexat e 50 MG/2ML injection Solution 09-24 00:00: 00 Yes [id number] Inject 0.4ml SC once a week Leandra Baeza gwen Methotrexat e 50 MG/2ML injection Solution 09-24 00:00: 00 Yes [id number] Inject 0.4ml SC once a week Leandra hidalgo Ondansetron (ZOFRAN) 4 MG oral TABLET DISPERSIBLE 09-03 00:00: 00 Yes [id number] 4mg Q.74867844 [id number] 3D Take 1 tablet (4 mg total) by mouth every 8 hours as needed Leandra hidalgo Ondansetron (ZOFRAN) 4 MG oral TABLET DISPERSIBLE 09-03 00:00: 00 Yes [id number] 4mg Q.17496900 [id number] 3D Take 1 tablet (4 mg total) by mouth every 8 hours as needed Leandra hidalgo Escitalopra m Oxalate (Lexapro) 10 MG oral Tablet 09-03 00:00: 00 Yes [id number] 10mg Take 1 tablet (10 mg total) by mouth daily Leandra hidalgo Bupropion HCL XL 150 MG OR TB24 2022-0 4-25 00:00: 00 Yes [id number] 150mg Take 1 tablet (150 mg total) by mouth daily Leandra hidalgo Ondansetron (ZOFRAN) 4 MG oral TABLET DISPERSIBLE 0 4-25 00:00: 00 Yes [id number] 4mg Q.83303952 [id number] 3D Take 1 tablet (4 mg total) by mouth every 8 hours as needed Leandra hidalgo Escitalopra m Oxalate (Lexapro) 10 MG oral Tablet 0 -25 00:00: 00 Yes [id number] 10mg Take 1 tablet (10 mg total) by mouth daily Leandra hidalgo Bupropion HCL XL 150 MG OR TB24 0 -25 00:00: 00 Yes [id number] 150mg Take 1 tablet (150 mg total) by mouth daily Leandra hidalgo Ondansetron (ZOFRAN) 4 MG oral TABLET DISPERSIBLE 0 25 00:00: 00 Yes [id number] 4mg Q.55490463 [id number] 3D Take 1 tablet (4 mg total) by mouth every 8 hours as needed Leandra hidalgo Ondansetron (ZOFRAN) 4 MG oral TABLET DISPERSIBLE 0 25 00:00: 00 Yes [id number] 4mg Q.28223715 [id number] 3D Take 1 tablet (4 mg total) by mouth every 8 hours as needed Leandra hidalgo Ondansetron (ZOFRAN) 4 MG oral TABLET DISPERSIBLE 0 25 00:00: 00 06-23 00:00 :00 No [id number] 4mg Q.94509546 [id number] 3D Take 1 tablet (4 mg total) by mouth every 8 hours as needed Leandra hidalgo methylPREDN ISolone 4 MG oral Tablet Therapy Pack -17 00:00: 00 Yes [id number] 1{vignesh} Take 1 vignesh by mouth See Admin Instructio ns Use as directed Leandra Seybold - Externa l Ondansetron HCl 4 MG oral Tablet 17 00:00: 00 Yes [id number] 4mg Q.58832588 [id number] 3D Take 1 tablet (4 mg total) by mouth every 8 hours as needed for nausea Leandra Boykinold - Externa l methylPREDN ISolone 4 MG oral Tablet Therapy Pack 08-26 00:00: 00 Yes [id number] 1{vignesh} Take 1 vignesh by mouth See Admin Instructio ns Use as directed Leandra Maryybold - Externa l Ondansetron HCl 4 MG oral Tablet 08-26 00:00: 00 Yes [id number] 4mg Q.26010980 [id number] 3D Take 1 tablet (4 mg total) by mouth every 8 hours as needed for nausea Leandra Boykinold - Externa l Ondansetron HCl 4 MG oral Tablet 08-26 00:00: 00 Yes [id number] 4mg Q.76029061 [id number] 3D Take 1 tablet (4 mg total) by mouth every 8 hours as needed for nausea Leandra Jacob - Externa l Ondansetron HCl 4 MG oral Tablet 17 00:00: 00 01-20 00:00 :00 No [id number] 4mg Q.49604010 [id number] 3D Take 1 tablet (4 mg total) by mouth every 8 hours as needed for nausea Leandra Jacob - Externa l methylPREDN ISolone 4 MG oral Tablet Therapy Pack 08-26 00:00: 00 09-24 00:00 :00 No [id number] 1{vignesh} Take 1 vignesh by mouth See Admin Instructio ns Use as directed Leandra Seybold - Externa l predniSONE (DELTASONE) 10 MG oral tablet 08-08 00:00: 00 Yes [id number] 1 pill twice daily for 5 days then 1 pill once daily for 5 days Leandra Seybold - Externa l predniSONE (DELTASONE) 10 MG oral tablet 30 00:00: 00 Yes [id number] 1 pill twice daily for 5 days then 1 pill once daily for 5 days Leandra Seybold - Externa l predniSONE (DELTASONE) 10 MG oral tablet 3-30 00:00: 00 09-24 00:00 :00 No [id number] 1 pill twice daily for 5 days then 1 pill once daily for 5 days Leandra Maryvadim - Externa l iopamidol (ISOVUE 370-500 mL) injection 64 mL 01-11 14:00: 00 01-11 12:59 :00 No [id number] 64mL 64 mL, Intravenou s, ONCE, 1 dose, On Fri01/11/22 at 0900, Routine [facility] ondansetron (ZOFRAN (PF)) injection 4 mg 01-11 13:15: 00 01-11 12:35 :00 No 4mg 4 mg, Slow IV Push, ONCE, 1 dose, On Fri01/11/22 at 0815, Routine [facility] morpHINE (4 mg/mL) injection 4 mg 01-11 13:15: 01-11 12:36 :00 No 4mg 4 mg, Slow IV Push, ONCE, 1 dose, On Fri01/11/22 at 0815, STAT [facility] piperacilli n-tazobacta m (ZOSYN) 3.375 g in NaCl 0.9% (NS) 50 mL MINI-BAG 01-11 12:31: 00 01-11 13:06 :00 No 3.375g 3.375 g, IV Piggyback, ONCE, 1 dose, On Fri01/11/22 at 0745, Administer over 30 Minutes, 50 mL
Reas on for Anti-Infec tive: Empiric Therapy for Suspected Infection< br>Empiric Therapy Site: Skin / Soft tissue
Duration of therapy: 72 hours [facility] dexamethaso ne sod phos PF injection 10 mg 01-11 12:15: 00 01-11 12:30 :00 No 10mg 10 mg, Slow IV Push, ONCE, 1 dose, On Fri01/11/22 at 0715, 1 mL [facility] Ondansetron (ZOFRAN) 4 MG oral TABLET DISPERSIBLE 01-11 00:00: 00 Yes 4mg Q.05250474 [id number] 3D Take 4 mg by mouth every 8 hours as needed Leandra hidalgo Ondansetron (ZOFRAN) 4 MG oral TABLET DISPERSIBLE 01-11 00:00: 00 Yes 4mg Q.28514469 [id number] 3D Take 4 mg by mouth every 8 hours as needed Leandra hidalgo chlorhexidi ne 0.12 % mouthwash 01-11 00:00: 00 Yes [id number] 15mL Swish and spit out 15 mL in the morning and 15 mL in the evening. [facility] methylPREDN ISolone (MEDROL, VIGNESH,) 4 mg tablets 01-11 00:00: 00 Yes [id number] Take by mouth SEE-INSTRU CTIONS. follow package directions [facility] ondansetron 4 mg disintegrat ing tablet 01-11 00:00: 00 Yes [id number] 4mg Take 1 tablet by mouth every 8 (eight) hours as needed for Nausea and Vomiting (N/V). [facility] Ondansetron (ZOFRAN) 4 MG oral TABLET DISPERSIBLE 01-11 00:00: 00 09-03 00:00 :00 No 4mg Q.[id number] 3D Take 4 mg by mouth every 8 hours as needed Leandra hidalgo clindamycin 150 mg capsule 01-11 00:00: 00 01-19 04:59 :00 No [id number] 300mg Take 2 capsules by mouth 4 (four) times daily for 7 days. [facility] HYDROcodone -acetaminop hen (NORCO) 10-325 mg tablet 01-11 00:00: 00 01-19 04:59 :00 No [id number] .5{tbl} Take 0.5-1 tablets by mouth every 6 (six) hours as needed for Pain (scale 7-10) for up to 7 days. Indication s: acute pain [facility] Dose Unknown 11-15 00:00: 00 No Dose Unknown 11-15 00:00: 00 No Dose Unknown 11-15 00:00: 00 No Dose Unknown 11-15 00:00: 00 No Dose Unknown 11-15 00:00: 00 No ciprofloxac in 500 mg tablet 11-15 00:00: 00 No 1mg prednisone 10 mg tablet 11-15 00:00: 00 No mg diphenhydrA MINE (BENADRYL) injection 25 mg 07-04 19:30: 00 07-04 18:40 :00 No 25mg 25 mg, Slow IV Push, ONCE, 1 dose, On Fri07/04/21 at 1330, STAT [facility] ondansetron (ZOFRAN (PF)) injection 4 mg 07-04 19:30: 00 07-04 18:40 :00 No 4mg 4 mg, Slow IV Push, ONCE, 1 dose, On Fri07/04/21 at 1330, KEON [facility] NaCl 0.9% (NS) bolus infusion 500 mL 07-04 19:30: 00 07-04 19:40 :00 No 500mL at 999 mL/hr, 500 mL, IV Infusion, ONCE, 1 dose, On Fri07/04/21 at 1330, STAT [facility] NaCl 0.9% (NS) bolus infusion 1,000 mL 07-04 18:00: 00 07-04 17:58 :00 No 1000mL at 999 mL/hr, 1,000 mL, IV Infusion, ONCE, 1 dose, On Fri07/04/21 at 1200, STAT [facility] acetaminoph en (CHILDREN'S ACETAMINOPH EN) 160 mg/5 mL (5 mL) oral suspension 650 mg 07-04 17:10: 00 07-04 17:08 :00 No 650mg 650 mg, Oral, ONCE, 1 dose, On Fri07/04/21 at 1115, Routine [facility] predniSONE 20 mg tablet 07-04 00:00: 00 07-14 05:59 :00 No [id number] Take 3 tablets by mouth every morning for 3 days, THEN 2 tablets every morning for 3 days, THEN 1 tablet every morning for 3 days. [facility] ciprofloxac in 250 mg tablet 2021-0 2-16 00:00: 00 No 1mg acetaminoph en (TYLENOL) 325 mg tablet 2021-0 2-14 06:51: 01 Yes Take by mouth every 6 (six) hours as needed. [facility] naproxen 250 mg tablet 2021-0 2-14 06:51: 01 Yes 250mg Take 250 mg by mouth 2 (two) times daily with meals. [facility] acetaminoph en (TYLENOL) 325 mg tablet 2021-0 2-14 06:51: 01 Yes Take by mouth every 6 (six) hours as needed. [facility] naproxen 250 mg tablet 2021-0 2-14 06:51: 01 Yes 250mg Take 250 mg by mouth 2 (two) times daily with meals. [facility] acetaminoph en (TYLENOL) 325 mg tablet 2021-0 2-14 06:51: 01 Yes Take by mouth every 6 (six) hours as needed. [facility] naproxen 250 mg tablet 2021-0 2-14 06:51: 01 Yes 250mg Take 250 mg by mouth 2 (two) times daily with meals. [facility] acetaminoph en (TYLENOL) 325 mg tablet 2021-0 2-14 06:51: 01 Yes Take by mouth every 6 (six) hours as needed. [facility] naproxen 250 mg tablet 2021-0 2-14 06:51: 01 Yes 250mg Take 250 mg by mouth 2 (two) times daily with meals. [facility] acetaminoph en (TYLENOL) 325 mg tablet 2021-0 2-14 06:51: 01 Yes Take by mouth every 6 (six) hours as needed. [facility] naproxen 250 mg tablet 2021-0 2-14 06:51: 01 Yes 250mg Take 250 mg by mouth 2 (two) times daily with meals. [facility] vitamin B-12 (CYANOCOBAL HIGHTOWER) tablet 1,000 mcg 2021-0 213 15:00: 00 Yes 1000ug 1,000 mcg, Oral, DAILY, First dose on 06/24/21 at 0900, Until Discontinu ed, Routine [facility] vitamin B-12 1,000 mcg tablet 2021-0 2-13 00:00: 00 07-25 04:59 :00 No [id number] 1000ug Take 1 tablet by mouth daily for 30 days. [facility] vitamin B-12 1,000 mcg tablet 2021-0 13 00:00: 00 07-25 04:59 :00 No [id number] 1000ug Take 1 tablet by mouth daily for 30 days. [facility] vitamin B-12 1,000 mcg tablet 2021-0 13 00:00: 00 07-25 04:59 :00 No [id number] 1000ug Take 1 tablet by mouth daily for 30 days. [facility] vitamin B-12 1,000 mcg tablet 2021-0 06-24 00:00: 00 07-25 04:59 :00 No [id number] 1000ug Take 1 tablet by mouth daily for 30 days. [facility] ibuprofen 800 mg tablet 2021-0 -12 18:52: 02 Yes 800mg Take 800 mg by mouth every 8 (eight) hours as needed. [facility] ibuprofen 800 mg tablet 2021-0 -12 18:52: 02 Yes 800mg Take 800 mg by mouth every 8 (eight) hours as needed. [facility] ibuprofen 800 mg tablet 2021-0 -12 18:52: 02 Yes 800mg Take 800 mg by mouth every 8 (eight) hours as needed. [facility] ibuprofen 800 mg tablet 2021-0 -12 18:52: 02 Yes 800mg Take 800 mg by mouth every 8 (eight) hours as needed. [facility] ibuprofen 800 mg tablet 2-0 2-12 18:52: 02 Yes 800mg Take 800 mg by mouth every 8 (eight) hours as needed. [facility] ibuprofen 800 mg tablet 2022-0 2-12 18:52: 02 Yes 800mg Take 800 mg by mouth every 8 (eight) hours as needed. [facility] acetaminoph en (TYLENOL) 325 mg tablet 06-23 18:52: 02 Yes Take by mouth every 6 (six) hours as needed. [facility] naproxen 250 mg tablet 06-23 18:52: 02 Yes 250mg Take 250 mg by mouth 2 (two) times daily with meals. [facility] magnesium sulfate in water 2 gram/50 mL (4 %) infusion 2 g 06-23 15:30: 00 06-23 15:33 :00 No 2g 2 g, IV Piggyback, ONCE, 1 dose, On 06/23/21 at 0930, Routine [facility] acetaminoph en-codeine (TYLENOL #3) 300-30 mg tablet 1 tablet 06-23 07:51: 31 Yes 1{tbl} 1 tablet, Oral, Q6HPRN, Starting on 06/23/21 at 0151, Until Discontinu ed, Routine, Pain (scale 4-6) [facility] omeprazole 20 mg capsule 06-23 00:00: 00 07-24 04:59 :00 No [id number] 20mg Take 1 capsule by mouth daily for 30 days. [facility] omeprazole 20 mg capsule 06-23 00:00: 00 07-24 04:59 :00 No [id number] 20mg Take 1 capsule by mouth daily for 30 days. [facility] omeprazole 20 mg capsule 06-23 00:00: 00 07-24 04:59 :00 No [id number] 20mg Take 1 capsule by mouth daily for 30 days. [facility] omeprazole 20 mg capsule 06-23 00:00: 00 07-24 04:59 :00 No [id number] 20mg Take 1 capsule by mouth daily for 30 days. [facility] sulfamethox azole-trime thoprim (BACTRIM DS) 800-160 mg per tablet 06-23 00:00: 00 07-05 05:59 :00 No [id number] 1{tbl} Take 1 tablet by mouth 2 (two) times daily for 11 days. [facility] sulfamethox azole-trime thoprim (BACTRIM DS) 800-160 mg per tablet 06-23 00:00: 00 07-05 05:59 :00 No [id number] 1{tbl} Take 1 tablet by mouth 2 (two) times daily for 11 days. [facility] sulfamethox azole-trime thoprim (BACTRIM DS) 800-160 mg per tablet 06-23 00:00: 00 07-05 05:59 :00 No [id number] 1{tbl} Take 1 tablet by mouth 2 (two) times daily for 11 days. [facility] sulfamethox azole-trime thoprim (BACTRIM DS) 800-160 mg per tablet 06-23 00:00: 00 07-05 05:59 :00 No [id number] 1{tbl} Take 1 tablet by mouth 2 (two) times daily for 11 days. [facility] HYDROcodone -acetaminop hen 10-325 mg tablet 06-23 00:00: 00 07-01 05:59 :00 No [id number] 1{tbl} Take 1 tablet by mouth every 8 (eight) hours as needed for Pain (scale 7-10) for up to 7 days. Indication s: acute pain [facility] HYDROcodone -acetaminop hen 10-325 mg tablet 06-23 00:00: 00 07-01 05:59 :00 No [id number] 1{tbl} Take 1 tablet by mouth every 8 (eight) hours as needed for Pain (scale 7-10) for up to 7 days. Indication s: acute pain [facility] levoFLOXaci n 750 mg tablet 06-23 00:00: 00 06-23 00:00 :00 No [id number] 750mg Take 1 tablet by mouth every 24 (twenty-fo ur) hours for 4 days. [facility] NaCl 0.9% (NS) injection 10 mL 06-22 18:40: 31 Yes 10mL 10 mL, Slow IV Push, PRN, Starting on Fri06/22/21 at 1240, Until Discontinu ed, Routine, line maintenanc e [facility] lidocaine 1% (PF) (XYLOCAINE) injection 5 mL 06-22 18:40: 31 Yes 5mL 5 mL, Subcutaneo us, PRN, Starting on Fri06/22/21 at 1240, Until Discontinu ed, Routine, Local anesthesia [facility] sennosides- docusate sodium (SENOKOT-S) 8.6-50 mg per tablet 1 tablet 06-22 15:00: 00 Yes 1{tbl} 1 tablet, Oral, DAILY, First dose on Fri06/22/21 at 0900, Until Discontinu ed, Routine [facility] enoxaparin (LOVENOX) injection 40 mg 06-21 23:00: 00 Yes 40mg 40 mg, Subcutaneo us, DAILY, First dose on Fri06/21/21 at 1700, Until Discontinu ed, Routine [facility] butalbital- acetaminoph en-caff (ESGIC) 50-325-40 mg tablet 1 tablet 06-21 20:30: 00 06-21 19:49 :00 No 1{tbl} 1 tablet, Oral, ONCE NOW, 1 dose, On Fri06/21/21 at 1430, Routine [facility] ceFEPIme (MAXIPIME) 2,000 mg in NaCl 0.9% (NS) 100 mL MINI-BAG 06-21 18:00: 00 Yes 2000mg 2,000 mg, IV Piggyback, Q8H ABX, First dose (after last modificati on) on Fri06/21/21 at 1200, Until Discontinu ed, Administer over 30 Minutes, 100 mL
Reas on for Anti-Infec tive: Documented Infection< br>Documen ras Infection Site: Urine
D uration of Therapy: 7 days [facility] polyethylen e glycol 3350 powder 17 g 06-21 17:00: 00 Yes 17g 17 g, Oral, DAILY, First dose on Fri06/21/21 at 1100, Until Discontinu ed, Routine [facility] cyanocobala min (VITAMIN B12) injection 1,000 mcg 06-21 14:30: 00 06-23 14:23 :00 No 1000ug 1,000 mcg, Intramuscu lar, Q24H, 3 doses, First dose on Magdalene 06/21/21 at 0830, Last dose on Fri06/23/21 at 0830, Routine [facility] HYDROcodone -acetaminop hen (NORCO) 10-325 mg tablet 1 tablet 06-21 09:15: 31 Yes 1{tbl} 1 tablet, Oral, Q6HPRN, Starting on Magdalene 06/21/21 at 0315, Until Discontinu ed, Routine, Pain (scale 7-10) [facility] ondansetron (ZOFRAN (PF)) injection 4 mg 06-21 09:05: 11 Yes 4mg 4 mg, Slow IV Push, Q6HPRN, Starting on Magdalene 06/21/21 at 0305, Until Discontinu ed, Routine, Nausea and Vomiting (N/V) [facility] acetaminoph en (TYLENOL) tablet 650 mg 06-21 09:05: 11 Yes 650mg 650 mg, Oral, Q6HPRN, Starting on Fri06/21/21 at 0305, Until Discontinu ed, Routine, Pain (scale 1-3) [facility] morpHINE injection 4 mg 06-21 08:00: 00 06-21 06:59 :00 No 4mg 4 mg, Slow IV Push, ONCE, 1 dose, On Magdalene 06/21/21 at 0200, STAT [facility] acetaminoph en (CHILDREN'S ACETAMINOPH EN) 160 mg/5 mL (5 mL) oral suspension 1,000 mg 06-21 07:15: 00 06-21 06:15 :00 No 1000mg 1,000 mg, Oral, ONCE, 1 dose, On Magdalene 06/21/21 at 0115, Routine [facility] ketorolac (TORADOL) injection 30 mg 06-21 06:30: 00 06-21 05:33 :00 No 30mg 30 mg, Slow IV Push, ONCE, 1 dose, On Magdalene 06/21/21 at 0030, KEON
Fa [facility] approving Restricted medication : OLGA CAMEJO [facility] vancomycin (VANCOCIN) 1,500 mg in NaCl 0.9% (NS) 500 mL piggyback 06-21 05:30: 00 06-21 06:00 :00 No 15mg/kg 1,500 mg (rounded from 1,510.5 mg = 15 mg/kg ?100.7 kg), IV Piggyback, ONCE, 1 dose, On Fri06/20/21 at 2330, Administer over 30 Minutes, 500 mL
Reas on for Anti-Infec tive: Documented Infection& lt;br>Docu mented Infection Site: Blood
D uration of Therapy: Other (see Comments) [facility] ceFEPIme (MAXIPIME) injection 1,000 mg 06-21 05:30: 00 06-21 04:59 :00 No 1000mg 1,000 mg, IV Piggyback, ONCE, 1 dose, On Fri06/20/21 at 2330, STAT
Re ason for Anti-Infec tive: Empiric Therapy for Suspected Infection< br>Empiric Therapy Site: Blood
D uration of therapy: 72 hours [facility] NaCl 0.9% (NS) bolus infusion 1,000 mL 06-21 04:15: 00 06-21 05:19 :00 No 1000mL at 999 mL/hr, 1,000 mL, IV Infusion, ONCE, 1 dose, On Fri06/20/21 at 2215, STAT [facility] NaCl 0.9% (NS) bolus infusion 1,000 mL 06-21 04:15: 00 06-21 05:47 :00 No 1000mL at 999 mL/hr, 1,000 mL, IV Infusion, ONCE, 1 dose, On Fri06/20/21 at 2215, STAT [facility] HYDROcodone -acetaminop hen (NORCO) 10-325 mg tablet 06-21 03:06: 45 06-21 00:00 :00 No 1{tbl} Take 1 tablet by mouth every 4 (four) hours as needed. [facility] busPIRone 10 mg tablet 06-21 03:06: 45 06-21 00:00 :00 No 10mg Take 10 mg by mouth 2 (two) times daily as needed. [facility] predniSONE 10 mg tablet 06-21:: 45 06-21 00:00 :00 No 10mg Take 10 mg by mouth daily. [facility] BUPROPION HCL (WELLBUTRIN ORAL) 06-21 03:06: 06-21 00:00 :00 No 200mg Take 200 mg by mouth daily. [facility] prednisone 20 mg tablet 06-19 00:00: 00 No mg phenazopyri dine 100 mg tablet 06-19 00:00: 00 No 1mg Macrobid 100 mg capsule 06-19 00:00: 00 No 1mg amoxicillin -clavulanat e (AUGMENTIN) 875-125 mg per tablet 1-03 00:00: 00 06-21 00:00 :00 No 1{tbl} Take 1 tablet by mouth 2 (two) times daily. [facility] Immunizations Ordered Immunization Name Filled Immunization Name Date Status Comments Source Td (adult) 2014-11-29 00:00:00 Completed Leandra Jacob - External Td (adult) 2014-11-29 00:00:00 Completed Leandra Jacob - External Td (adult) 2014-11-29 00:00:00 Completed Leandra Jacob - External Td (adult) 2014-11-29 00:00:00 Completed Leandra Jacob - External Td (adult) 2014-11-29 00:00:00 Completed Leandra Seybold - External Td 2014-11-29 00:00:00 Completed [facility] Td 2014-11-29 00:00:00 Completed [facility] Td 2014-11-29 00:00:00 Completed [facility] Td 2014-11-29 00:00:00 Completed [facility] Td 2014-11-29 00:00:00 Completed [facility] Td (adult) Unknown Completed Leandra Se ybold - External Td (adult) Unknown Completed Leandra Se ybold - External Td (adult) Unknown Completed Leandra Se ybold - External TD, NOS Unknown Completed [facility] Vital Signs Vital Name Observation Time Observation Value Comments S ource Systolic blood pressure 2022-09-24 14:25:00 109 mm[Hg] Leandra Seybo ld - External Diastolic blood pressure 2022-09-24 14:25:00 76 mm[Hg] Leandra Seybo ld - External Heart rate 2022-09-24 14:25:00 85 /min Kelse y Seybold - External Respiratory rate 2022-09-24 14:25:00 16 /min Leandra Seybold - External Body height 2022-09-24 14:25:00 175.3 cm Lindsay ey Seybold - External Body weight 2022-09-24 14:25:00 105.235 kg Lindsay ey Seybold - External BMI 2022-09-24 14:25:00 34.26 kg/m2 Lindsay ey Seybold - External Systolic blood pressure 2022-08-26 16:02:00 118 mm[Hg] Leandra Seybo ld - External Diastolic blood pressure 2022-08-26 16:02:00 68 mm[Hg] Leandra Seybo ld - External Heart rate 2022-08-26 16:02:00 89 /min Kelse y Seybold - External Body temperature 2022-08-26 16:02:00 35.89 Bernadette Leandra Seybold - External Respiratory rate 2022-08-26 16:02:00 16 /min Leandra Seybold - External Body height 2022-08-26 16:02:00 175.3 cm Lindsay ey Seybold - External Body weight 2022-08-26 16:02:00 105.688 kg Linsday ey Seybold - External BMI 2022-08-26 16:02:00 34.41 kg/m2 Lindsay lucas Seybold - External Oxygen saturation in Arterial blood by Pulse oximetry 2022-08-26 16:02:00 96 /min Leandra Garcia ld - External Systolic blood pressure 2022-08-07 14:23:00 108 mm[Hg] Leandra Boykino ld - External Diastolic blood pressure 2022-08-07 14:23:00 76 mm[Hg] Leandra Boykino ld - External Heart rate 2022-08-07 14:23:00 117 /min Carol mcmillan Seybold - External Body temperature 2022-08-07 14:23:00 36.39 Bernadette Leandra Maryybold - External Body height 2022-08-07 14:23:00 175.3 cm Lindsay lucas Seybold - External Body weight 2022-08-07 14:23:00 104.327 kg Lindsay lucas Seybold - External BMI 2022-08-07 14:23:00 33.97 kg/m2 Lindsay lucas Seybold - External Heart rate 2022-01-11 14:30:00 76 /min [facility] Oxygen saturation in Arterial blood by Pulse oximetry 2022-01-11 14:30:00 98 /min [facility] Systolic blood pressure 2022-01-11 14:00:00 119 mm[Hg] [facility] Diastolic blood pressure 2022-01-11 14:00:00 88 mm[Hg] [facility] Respiratory rate 2022-01-11 14:00:00 16 /min [facility] Body temperature 2022-01-11 11:44:00 37.33 Bernadette [facility] Body height 2022-01-11 11:44:00 175.3 cm [facility] Body weight 2022-01-11 11:44:00 102.513 kg [facility] BMI 2022-01-11 11:44:00 33.37 kg/m2 [facility] Body temperature 2021-07-04 18:47:34 37.78 Bernadette [facility] Heart rate 2021-07-04 18:24:00 112 /min [facility] Oxygen saturation in Arterial blood by Pulse oximetry 2021-07-04 18:24:00 96 /min [facility] Systolic blood pressure 2021-07-04 16:51:00 132 mm[Hg] [facility] Diastolic blood pressure 2021-07-04 16:51:00 77 mm[Hg] [facility] Respiratory rate 2021-07-04 16:51:00 18 /min [facility] Body weight 2021-07-04 16:51:00 100.699 kg [facility] BMI 2021-07-04 16:51:00 32.77 kg/m2 [facility] Oxygen saturation in Arterial blood by Pulse oximetry 2021-06-23 23:42:00 97 /min [facility] Systolic blood pressure 2021-06-23 23:42:00 127 mm[Hg] [facility] Diastolic blood pressure 2021-06-23 23:42:00 76 mm[Hg] [facility] Heart rate 2021-06-23 23:42:00 83 /min [facility] Body temperature 2021-06-23 23:42:00 35.39 Bernadette [facility] Respiratory rate 2021-06-23 23:42:00 18 /min [facility] Body height 2021-06-23 14:08:00 175.3 cm [facility] Body weight 2021-06-23 14:08:00 100.699 kg [facility] BMI 2021-06-23 14:08:00 32.77 kg/m2 [facility] BP Systolic 2021-07-04 10:21:00 BP Diastolic [...] 24.00 /min Procedures Procedure Date / Time Performed Performing Clinician Source CT SOFT TISSUE NECK W CONTRAST 2022-01-11 13:06:31 Singer [facility] LACTIC ACID WHOLE BLOOD 2022-01-11 12:28:[address] [facility] COMP. METABOLIC PANEL (29598) 2022-01-11 12:27:00 Singer [facility] CBC WITH DIFF 2022-01-11 12:27:00 Singer [facility] CONSENT/REFUSAL FOR DIAGNOSIS AND TREATMENT 2022-01-11 12:22:15 Doctor Unassigned, [place] [facility] RAPID INFLUENZA A/B 2021-07-04 18:18:00 Zoila Mcnulty [facility] COMP. METABOLIC PANEL (85916) 2021-07-04 17:01:00 Singer [facility] CBC WITH DIFF 2021-07-04 17:01:00 Singer [facility] URINALYSIS 2021-07-04 17:01:00 Singer [facility] LACTIC ACID WHOLE BLOOD 2021-07-04 17:01:00 , Taryn [facility] COVID-19 (ID NOW RAPID TESTING) 2021-07-04 17:01:00 Singer [facility] NOTICE OF PRIVACY PRACTICES 2021-07-04 16:42:56 Doctor Unassigned, [place] [facility] MAGNESIUM 2021-06-23 07:47:00 Alexandru Qiu [facility] C-REACTIVE PROTEIN 2021-06-23 07:47:00 Lazarus [facility] BASIC METABOLIC PANEL (NA, K, CL, CO2, GLUCOSE, BUN, CREATININE, CA) 2021-06-23 07:47:00 Dostal[facility] LIPID PANEL (37786)(TOTAL CHOLESTEROL, TRIGLYCERIDES, HDL) 2021-06-23 07:47:00 Dostal[facility] SEDIMENTATION RATE 2021-06-23 07:47:00 Dostal, [facility] CBC WITH DIFF 2021-06-23 07:47:00 Walter Cottrell [facility] CT HEAD WO CONTRAST 2021-06-22 21:58:29 Dostal, [facility] MAGNESIUM 2021-06-22 18:37:00 [facility] BASIC METABOLIC PANEL (NA, K, CL, CO2, GLUCOSE, BUN, CREATININE, CA) 2021-06-22 18:37:00 Dostal[facility] CBC WITH DIFF 2021-06-22 18:37:00 [facility] US RETROPERITONEAL LIMITED 2021-06-21 21:26:13 Dostal[facility] VITAMIN B12, LEVEL 2021-06-21 11:08:00 Jaz [facility] FOLATE 2021-06-21 11:08:00 [facility] C-REACTIVE PROTEIN 2021-06-21 11:08:00 Dostal[facility] HIV 1/2 AG-AB WITH REFLEX 2021-06-21 11:08:00 [facility]ostal[facility] CRITICAL CARE 2021-06-21 09:54:09 Olga Camejo [facility] CT ABDOMEN PELVIS WO CONTRAST 2021-06-21 04:49:43 Bashir [facility] XR CHEST 1 VW 2021-06-21 04:28:00 Olga Camejo [facility] URINALYSIS 2021-06-21 04:08:00 Ol[facility] URINE CULTURE 2021-06-21 04:08:00 Olga Camejo [facility] COVID-19 (ID NOW RAPID TESTING) 2021-06-21 04:08:00 Olga Camejo [facility] LAB ONLY COVID INTERPRETATION 2021-06-21 04:08:00 Olga Camejo [facility] CREATINE KINASE 2021-06-21 04:01:00 [facility] 2021-06-21 04:01:00 Freeman Qiu os [facility] BLOOD CULTURE SCREEN 2021-06-21 03:58:00 Laquita Camejo [facility] TROPONIN I 2021-06-21 03:58:00 Olga [facility]amejo [facility] COMP. METABOLIC PANEL (32935) 2021-06-21 03:58:00 Olga Camejo [facility] CBC WITH DIFF 2021-06-21 03:58:00 Olga Camejo [facility] PROTHROMBIN TIME / INR 2021-06-21 03:58:00 Ten Camejo [facility] ACTIVATED PARTIAL THRMPLAS ALANIS 2021-06-21 03:58:00 Olga Camejo [facility] N-TERMINAL PRO-BNP 2021-06-21 03:58:00 Olga Camejo [facility] LACTIC ACID WHOLE BLOOD 2021-06-21 03:57:00 Do magdalena Camejo [facility] HB ECG ROUTINE & RHYTHM STRIP 2021-06-21 03:07:42 Olga Camejo [facility] EMERGENCY SERVICES AGREEMENTS AND AUTHORIZATIONS 2021-06-20 06:01:00 Doctor Unassigned, [place] [facility] Plan of Care Planned Activity Planned Date Details Comments Source Goal Plan of Care Note [code = 89044-9] Goal Plan of Care Note [code = 73204-7] Goal Plan of Care Note [code = 47159-5] Goal Plan of Care Note [code = 18888-8] Goal Plan of Care Note [code = 48511-2] Goal Plan of Care Note [code = 05089-8] Goal Plan of Care Note [code = 78589-4] Goal Plan of Care Note [code = 64113-3] Encounters Start Date/Time End Date/Time Encounter Type Admission Type Attending Clinicians Care Facility Care Department Encounter ID Source 2023-06-23 16:00:00 2023-06-23 16:00:00 Outpatient AGUSTO TUCKER [facility] [id number] [facility] 2023-05-15 00:00:00 2023-05-15 00:00:00 Outpatient GENNY ANDREWS [id number] [facility] 2023-04-01 17:30:00 2023-04-01 17:30:00 Outpatient ANA LUISA HEREDIA [id number] [facility] 2023-03-29 11:30:00 2023-03-29 11:30:00 Outpatient ALFREDO VIRAMONTES [id number] [facility] 2023-03-29 09:30:00 2023-03-29 09:30:00 Outpatient DORY MELGAR [facility] [id number] [facility] 2023-03-29 00:00:00 2023-03-29 00:00:00 Outpatient SHAREE CAM [id number] [facility] 2023-01-22 00:00:00 2023-01-22 00:00:00 Outpatient JUSTIN HENLEY [id number] [facility] 2023-01-20 14:15:00 2023-01-20 14:15:00 Outpatient JUSTIN HENLEY [id number] [facility] 2023-01-19 00:00:00 2023-01-19 00:00:00 Outpatient CECIL GÓMEZ [id number] [facility] 2022-12-28 00:00:00 2022-12-28 00:00:00 Outpatient [facility] ANDREWS [id number] [facility] 2022-11-26 09:15:00 2022-11-26 09:15:00 Outpatient REBEKAH HERCULES [id number] [facility] 2022-11-02 00:00:00 2022-11-02 00:00:00 Outpatient [facility] ANDREWS [id number] [facility] 2022-09-24 10:00:00 2022-09-24 10:00:00 Outpatient LAB47 LEANDRA BEARD [id number] [facility] 2022-09-24 09:15:00 2022-09-24 09:15:00 Outpatient REBEKAH HERCULES LE[facility] [id number] [facility] 2022-09-03 10:45:00 2022-09-03 10:45:00 Outpatient GENNY ANDREWS [id number] [facility] 2022-08-26 11:50:00 2022-08-26 11:50:00 Outpatient LAB90 LEANDRA BEARD [id number] [facility] 2022-08-26 11:00:00 2022-08-26 11:00:00 Outpatient GENNY ANDREWS [id number] [facility] 2022-08-20 08:00:00 2022-08-20 08:00:00 Outpatient GENNY ANDREWS [id number] [facility] 2022-08-08 12:00:00 2022-08-08 12:00:00 Outpatient Genny Augustine [facility] [id number] [address] [place] [address] 2022-08-08 00:00:00 2022-08-08 00:00:00 Outpatient GENNY ANDREWS [id number] [facility] 2022-08-08 00:00:00 2022-08-08 00:00:00 Outpatient DOUGLAS PRINCE [id number] [facility] 2022-08-08 00:00:00 2022-08-08 00:00:00 Outpatient LEANDRA BEARD [id number] [facility] 2022-08-07 10:10:00 2022-08-07 10:10:00 Outpatient LAB90 LEANDRA BEARD [id number] [facility] 2022-08-07 09:30:00 2022-08-07 09:30:00 Outpatient GENNY ANDREWS [id number] [facility] 2022-01-11 06:47:00 2022-01-11 10:01:00 Emergency X SAMANIEGO, JORGE [facility] ERT [id number] [facility] 2022-01-11 06:47:00 2022-01-11 10:01:00 Emergency Jorge Samaniego [facility] [id number] 350.1.13.10 [id number] [id number] [facility] 2021-11-15 00:00:00 2021-11-15 00:00:00 Outpatient Visit [id number] 2021-07-04 10:56:00 2021-07-04 13:43:00 Emergency X ZOILA MCNULTY [facility] ERT [id number] [facility] 2021-07-04 10:56:00 2021-07-04 13:43:00 Emergency McnultyZoila S [facility] [id number] 350.1.13.10 4.2.7.2.686 [id number] [facility] 2021-07-04 00:00:00 2021-07-04 00:00:00 Orders Only Doctor Unassigned, [place] [facility] 1.2840.114 350.1.13.10 4.2.7.2.686 [id number] [facility] 2021-06-26 00:00:00 2021-06-26 00:00:00 Patient Secure Msg Doctor Unassigned, [place] [facility] 1.2840.114 350.1.13.10 4.2.7.2.686 [id number] [facility] 2021-06-25 00:00:00 2021-06-25 00:00:00 Transition of Care Claudine Gutierrez 1.2840.114 350.1.13.10 4.2.7.2.686 [id number] [facility] 2021-06-20 21:02:00 2021-06-23 18:51:00 Hospital Encounter Olga Camejo, Gifty Ledbetter, Mary [facility] [id number] 350.1.13.10 4.2.7.2.686 [id number] [facility] 2021-06-20 21:02:00 2021-06-23 18:51:00 Inpatient X KHLOE MARY [facility] [id number] [facility] Results Test Description Test Time Test Comments Results Result Co mments Source [facility] (20071)2021-07-04 17:31:18* Test Item Value Reference Range Interpretation Comme nts NA (test code = 1886428709) 133 mmol/L 135-145 L K (test code = 5081220523) 4.9 mmol/L 3.5-5.0 CL (test code = 9850245071) 104 mmol/L 98-108 CO2 TOTAL (test code = 4436298563) 23 mmol/L 23-31 AGAP (test code = 7493283327) 2-16 BUN (test code = 5638062180) 13 mg/dL 7-23 GLUCOSE (test code = 3676242418) 124 mg/dL 70-110 H CREATININE (test code = 2991993687) 0.90 mg/dL 0.50-1.04 TOTAL BILI (test code = 9310619603) 0.7 mg/dL 0.1-1.1 CALCIUM (test code = 1263684954) 9.3 mg/dL 8.6-10.6 T PROTEIN (test code = 9169902080) 7.4 g/dL 6.3-8.2 ALBUMIN (test code = 0393313099) 4.3 g/dL 3.5-5.0 ALK PHOS (test code = 7994986155) 90 U/L 34-122 ALTv (test code = 1742-6) 68 U/L 5-35 H AST(SGOT) (test code = 4301525635) 79 U/L 13-40 H eGFR (test code = 5894967974) mL/min/1.73m2 BERLIN (test code = BERLIN) Association of [...] or abnormalities in imaging tests). Lab Interpretation (test code = 11825-5) Abnormal [facility] with [id number] 17:16:16* Test Item Value Reference Range Interpretation Comme nts WBC (test code = 6690-2) See_Comment [Automated [employer] Valves] The system which generated this result transmitted reference range: 4.30 - 11.10 10*3/?L. The reference range was not used to interpret this result as normal/abnormal. RBC (test code = 789-8) See_Comment [Automated [employer] Valves] The system which generated this result transmitted reference range: 3.93 - 5.25 10*6/?L. The reference range was not used to interpret this result as normal/abnormal. HGB (test code = 718-7) 14.3 g/dL 11.6-15.0 HCT (test code = 4544-3) 42.2 % 35.7-45.2 MCV (test code = 787-2) 97.5 fL 80.6-95.5 H MCH (test code = 785-6) 33.0 pg 25.9-32.8 H MCHC (test code = 786-4) 33.9 g/dL 31.6-35.1 RDW-SD (test code = 11982-5) 46.9 fL 39.0-49.9 RDW-CV (test code = 788-0) 13.1 % 12.0-15.5 PLT (test code = 777-3) See_Comment [Automated messa ge] The system which generated this result transmitted reference range: 166 - 358 10*3/?L. The reference range was not used to interpret this result as normal/abnormal. MPV (test code = 68180-4) 9.4 fL 9.5-12.9 L NRBC/100 WBC (test code = 1551653188) See_Comment [Automated R + B Group ssage] The system which generated this result transmitted reference range: 0.0 - 10.0 /100 WBCs. The reference range was not used to interpret this result as normal/abnormal. NRBC x10^3 (test code = 1532710059) <0.01 See_Comment [Automated messa ge] The system which generated this result transmitted reference range: 10*3/?L. The reference range was not used to interpret this result as normal/abnormal. GRAN MAT (NEUT) % (test code = 770-8) 80.1 % IMM GRAN % (test code = 4168691044) 0.30 % LYMPH % (test code = 736-9) 12.6 % MONO % (test code = 5905-5) 4.6 % EOS % (test code = 713-8) 2.1 % BASO % (test code = 706-2) 0.3 % GRAN MAT x10^3(ANC) (test code = 8611246748) 4.91 10*3/uL 1.88-7.09 IMM GRAN x10^3 (test code = 2525252524) <0.03 0.00-0.06 LYMPH x10^3 (test code = 731-0) 0.77 10*3/uL 1.32-3.29 L MONO x10^3 (test code = 742-7) 0.28 10*3/uL 0.33-0.92 L EOS x10^3 (test code = 711-2) 0.13 10*3/uL 0.03-0.39 BASO x10^3 (test code = 704-7) <0.03 0.01-0.07 Lab Interpretation (test code = 00865-4) [facility]normal [facility] Whole [id number] 17:12:38* Test Item Value Reference Range Interpretation Comme nts LACTIC ACID (test code = 4876946798) 1.69 mmol/L 0.50-2.20 Lab Interpretation (test cod e = 45318-1) Normal [facility] (23093)(TOTAL CHOLESTEROL, TRIGLYCERIDES, HDL)2021-06-23 21:51:16* Test Item Value Reference Range Interpretation Comme nts CHOL (test code = 2125752975) 149 mg/dL 120-200 HDL (test code = 2385085499) 20 mg/dL >50 L HDLC RATIO (test code = 1355724375) See_Comment H [Automated [employer] Valves] The system which generated this result transmitted reference range: <=4.5. The reference range was not used to interpret this result as normal/abnormal. TRIG (test code = 1083310107) 137 mg/dL 30-170 LDL CHOL (test code = 01849-3) 102 mg/dL See_Comment [Automated [employer] Valves] The system which generated this result transmitted reference range: <=160. The reference range was not used to interpret this result as normal/abnormal. VLDL (test code = 8294870004) 27 mg/dL 5-60 Lab Interpretation (test code = 67118-5) Abnormal [facility] [id number] 17:54:55* Test Item Value Reference Range Interpretation Comme nts CRP (test code = 0343761697) 25.7 mg/dL <0.8 H Lab Interpretation (test cod e = 78630-8) [facility] [id number] 08:35:00* Test Item Value Reference Range Interpretation Comme nts ESR (test code = 4100575545) See_Comment H [Automated messa ge] The system which generated this result transmitted reference range: 0 - 20 mm/HR. The reference range was not used to interpret this result as normal/abnormal. Lab Interpretation (test code = 52198-9) Abnormal [facility] METABOLIC PANEL (NA, K, CL, CO2, GLUCOSE, BUN, CREATININE, CA)2021-06-23 08:05:51* Test Item Value Reference Range Interpretation Comme nts NA (test code = 1277626958) 135 mmol/L 135-145 K (test code = 9885108795) 3.8 mmol/L 3.5-5.0 CL (test code = 9466015147) 104 mmol/L 98-108 CO2 TOTAL (test code = 8584588955) 28 mmol/L 23-31 AGAP (test code = 9497006676) 2-16 BUN (test code = 0023136979) 13 mg/dL 7-23 GLUCOSE (test code = 3463802472) 112 mg/dL 70-110 H CREATININE (test code = 9187863321) 0.73 mg/dL 0.50-1.04 CALCIUM (test code = 4568313491) 8.6 mg/dL 8.6-10.6 eGFR (test code = 4385256725) mL/min/1.73m2 BERLIN (test code = BERLIN) Association of [...] or abnormalities in imaging tests). Lab Interpretation (test code = 36881-0) [facility] 08:05:51* Test Item Value Reference Range Interpretation Comme nts MAGNESIUM (test code = 1722262334) 1.9 mg/dL 1.7-2.4 Lab Interpretation (test cod e = 00486-9) Normal [facility] WITH [id number] 07:55:06* Test Item Value Reference Range Interpretation Comme nts WBC (test code = 6690-2) See_Comment H [Automated [employer] ge] The system which generated this result transmitted reference range: 4.30 - 11.10 10*3/?L. The reference range was not used to interpret this result as normal/abnormal. RBC (test code = 789-8) See_Comment L [Automated [employer]] The system which generated this result transmitted reference range: 3.93 - 5.25 10*6/?L. The reference range was not used to interpret this result as normal/abnormal. HGB (test code = 718-7) 11.9 g/dL 11.6-15.0 HCT (test code = 4544-3) 35.1 % 35.7-45.2 L MCV (test code = 787-2) 97.0 fL 80.6-95.5 H MCH (test code = 785-6) 32.9 pg 25.9-32.8 H MCHC (test code = 786-4) 33.9 g/dL 31.6-35.1 RDW-SD (test code = 28366-8) 46.9 fL 39.0-49.9 RDW-CV (test code = 788-0) 13.1 % 12.0-15.5 PLT (test code = 777-3) See_Comment [Automated [employer]] The system which generated this result transmitted reference range: 166 - 358 10*3/?L. The reference range was not used to interpret this result as normal/abnormal. MPV (test code = 69153-0) 9.2 fL 9.5-12.9 L NRBC/100 WBC (test code = 6534019637) See_Comment [Automated [employer]age] The system which generated this result transmitted reference range: 0.0 - 10.0 /100 WBCs. The reference range was not used to interpret this result as normal/abnormal. NRBC x10^3 (test code = 3015025051) <0.01 See_Comment [Automated [employer]] The system which generated this result transmitted reference range: 10*3/?L. The reference range was not used to interpret this result as normal/abnormal. GRAN MAT (NEUT) % (test code = 770-8) 63.1 % IMM GRAN % (test code = 3595042104) 0.50 % LYMPH % (test code = 736-9) 23.7 % MONO % (test code = 5905-5) 10.8 % EOS % (test code = 713-8) 1.5 % BASO % (test code = 706-2) 0.4 % GRAN MAT x10^3(ANC) (test code = 8657845633) 7.43 10*3/uL 1.88-7.09 H IMM GRAN x10^3 (test code = 1481160840) 0.06 10*3/uL 0.00-0.06 LYMPH x10^3 (test code = 731-0) 2.79 10*3/uL 1.32-3.29 MONO x10^3 (test code = 742-7) 1.27 10*3/uL 0.33-0.92 H EOS x10^3 (test code = 711-2) 0.18 10*3/uL 0.03-0.39 BASO x10^3 (test code = 704-7) 0.05 10*3/uL 0.01-0.07 Lab Interpretation (test code = 27784-3) Abnormal [facility] WITH [id number] 19:32:51* Test Item Value Reference Range Interpretation Comme nts WBC (test code = 6690-2) See_Comment H [Automated messa ge] The system which generated this result transmitted reference range: 4.30 - 11.10 10*3/?L. The reference range was not used to interpret this result as normal/abnormal. RBC (test code = 789-8) See_Comment [Automated messa ge] The system which generated this result transmitted reference range: 3.93 - 5.25 10*6/?L. The reference range was not used to interpret this result as normal/abnormal. HGB (test code = 718-7) 12.9 g/dL 11.6-15.0 HCT (test code = 4544-3) 38.5 % 35.7-45.2 MCV (test code = 787-2) 97.2 fL 80.6-95.5 H MCH (test code = 785-6) 32.6 pg 25.9-32.8 MCHC (test code = 786-4) 33.5 g/dL 31.6-35.1 RDW-SD (test code = 47551-6) 46.6 fL 39.0-49.9 RDW-CV (test code = 788-0) 12.9 % 12.0-15.5 PLT (test code = 777-3) See_Comment H [Automated messa ge] The system which generated this result transmitted reference range: 166 - 358 10*3/?L. The reference range was not used to interpret this result as normal/abnormal. MPV (test code = 85658-1) 9.4 fL 9.5-12.9 L NRBC/100 WBC (test code = 9167056082) See_Comment [Automated [employer] ssage] The system which generated this result transmitted reference range: 0.0 - 10.0 /100 WBCs. The reference range was not used to interpret this result as normal/abnormal. NRBC x10^3 (test code = 7521378329) <0.01 See_Comment [Automated messa ge] The system which generated this result transmitted reference range: 10*3/?L. The reference range was not used to interpret this result as normal/abnormal. GRAN MAT (NEUT) % (test code = 770-8) 63.6 % IMM GRAN % (test code = 2773249983) 0.60 % LYMPH % (test code = 736-9) 23.0 % MONO % (test code = 5905-5) 11.7 % EOS % (test code = 713-8) 0.8 % BASO % (test code = 706-2) 0.3 % GRAN MAT x10^3(ANC) (test code = 5358242523) 8.94 10*3/uL 1.88-7.09 H IMM GRAN x10^3 (test code = 6098256403) 0.08 10*3/uL 0.00-0.06 H LYMPH x10^3 (test code = 731-0) 3.23 10*3/uL 1.32-3.29 MONO x10^3 (test code = 742-7) 1.64 10*3/uL 0.33-0.92 H EOS x10^3 (test code = 711-2) 0.11 10*3/uL 0.03-0.39 BASO x10^3 (test code = 704-7) 0.04 10*3/uL 0.01-0.07 Lab Interpretation (test code = 19582-5) Abnormal [facility] METABOLIC PANEL (NA, K, CL, CO2, GLUCOSE, BUN, CREATININE, CA)2021-06-22 19:20:43* Test Item Value Reference Range Interpretation Comme nts NA (test code = 3312457130) 139 mmol/L 135-145 K (test code = 0258266336) 4.0 mmol/L 3.5-5.0 CL (test code = 6756561911) 107 mmol/L 98-108 CO2 TOTAL (test code = 1076657134) 23 mmol/L 23-31 AGAP (test code = 9020650594) 2-16 BUN (test code = 1836519859) 11 mg/dL 7-23 GLUCOSE (test code = 9803793573) 100 mg/dL 70-110 CREATININE (test code = 3188079138) 0.75 mg/dL 0.50-1.04 CALCIUM (test code = 5983687414) 9.1 mg/dL 8.6-10.6 eGFR (test code = 7600080508) mL/min/1.73m2 BERLIN (test code = BERLIN) Association of [...] abnormalities in imaging tests). [facility]:20:43* Test Item Value Reference Range Interpretation Comme nts MAGNESIUM (test code = 7940008811) 1.9 mg/dL 1.7-2.4 Lab Interpretation (test cod e = 14364-3) Normal [facility] [id number] 18:07:54* Test Item Value Reference Range Interpretation Comme nts CRP (test code = 5860949394) 25.8 mg/dL <0.8 H Lab Interpretation (test cod e = 45340-4) [facility]normal [facility], [id number] 00:00:00* Test Item Value Reference Range Interpretation Comme nts CULTURE, URINE (test code = 38964) SPECIMEN NUMBER: [id number] HIV 1/2 AG-AB WITH [id number] 17:13:51* Test Item Value Reference Range Interpretation Comme nts HIV Semi-quantitative (test code = 81077-9) Negative Negative BERLIN (test code = BERLIN) Non-reactive for HIV-1 antigen and HIV-1/HIV-2 antibodies. ?No laboratory evidence of HIV infection. ?Repeat in 2-4 weeks if acute HIV infection is suspected. [facility], [id number] 15:02:02* Test Item Value Reference Range Interpretation Comme nts PREG SERUM (test code = 1210901674) Negative BERLIN (test code = BERLIN) Less than 10 IU/L. ?If low titer or ectopic is suspected, resubmit specimen in 48-72 hours. [facility]22-[facility] 13:21:45* Test Item Value Reference Range Interpretation Comme nts FOLATE SER (test code = 0817302783) 8.2 ng/mL 3.0-20.0 Lab Interpretation (test cod e = 08364-2) Normal [facility] B12, [id number] 12:58:44* Test Item Value Reference Range Interpretation Comme nts VIT B12 (test code = 1959593712) 213 pg/mL 240-930 L BERLIN (test code = BERLIN) Biotin has been reported to cause a positive bias, interpret results relative to patient's use of biotin. Lab Interpretation (test code = 60642-9) [facility]normal [facility] WITH [id number] 05:04:07* Test Item Value Reference Range Interpretation Comme nts WBC (test code = 6690-2) See_Comment H [Automated message] The system which generated this result transmitted reference range: 4.30 - 11.10 10*3/?L. The reference range was not used to interpret this result as normal/abnormal. RBC (test code = 789-8) See_Comment [Automated message] The system which generated this result transmitted reference range: 3.93 - 5.25 10*6/?L. The reference range was not used to interpret this result as normal/abnormal. HGB (test code = 718-7) 14.7 g/dL 11.6-15.0 HCT (test code = 4544-3) 43.1 % 35.7-45.2 MCV (test code = 787-2) 96.2 fL 80.6-95.5 H MCH (test code = 785-6) 32.8 pg 25.9-32.8 MCHC (test code = 786-4) 34.1 g/dL 31.6-35.1 RDW-SD (test code = 47351-6) 46.5 fL 39.0-49.9 RDW-CV (test code = 788-0) 12.9 % 12.0-15.5 PLT (test code = 777-3) See_Comment H [Automated message] The system which generated this result transmitted reference range: 166 - 358 10*3/?L. The reference range was not used to interpret this result as normal/abnormal. MPV (test code = 85665-8) 9.5 fL 9.5-12.9 NRBC/100 WBC (test code = 2392392873) See_Comment [Automated message] The system which generated this result transmitted reference range: 0.0 - 10.0 /100 WBCs. The reference range was not used to interpret this result as normal/abnormal. NRBC x10^3 (test code = 5174024836) <0.01 See_Comment [Automated message] The system which generated this result transmitted reference range: 10*3/?L. The reference range was not used to interpret this result as normal/abnormal. GRAN MAT (NEUT) % (test code = 770-8) 75.6 % IMM GRAN % (test code = 4127607909) 1.10 % LYMPH % (test code = 736-9) 12.4 % MONO % (test code = 5905-5) 10.4 % EOS % (test code = 713-8) 0.1 % BASO % (test code = 706-2) 0.4 % GRAN MAT x10^3(ANC) (test code = 4812024143) 18.55 10*3/uL 1.88-7.09 H IMM GRAN x10^3 (test code = 1266038402) 0.27 10*3/uL 0.00-0.06 H LYMPH x10^3 (test code = 731-0) 3.04 10*3/uL 1.32-3.29 MONO x10^3 (test code = 742-7) 2.55 10*3/uL 0.33-0.92 H EOS x10^3 (test code = 711-2) <0.03 0.03-0.39 L BASO x10^3 (test code = 704-7) 0.09 10*3/uL 0.01-0.07 H Lab Interpretation (test code = 45145-6) Abnormal [facility] HospitalTROP[facility]IN [id number] 04:44:20* Test Item Value Reference Range Interpretation Comments TROPONIN I (test code = 6566224752) 0.004 ng/mL See_Comment [Automated message] The system which generated this result transmitted reference range: <=0.034. The reference range was not used to interpret this result as normal/abnormal. BERLIN (test code = BERLIN) Reference (Normal) Range (defined by the 99th percentile reference [...] patient's use of biotin. Lab Interpretation (test code = 18994-5) Normal [facility] Hospital[facility]-TERMINAL [id number] 04:41:23* Test Item Value Reference Range Interpretation Comme nts NT-proBNP (test code = 2162103068) 101 pg/mL See_Comment [Automated message] The system which generated this result transmitted reference range: <=125. The reference range was not used to interpret this result as normal/abnormal. BERLIN (test code = BERLIN) Biotin has been reported to cause a negative bias, interpret results relative to patient's use of biotin. Lab Interpretation (test code = 61336-7) Normal [facility] HospitalACTIVATED PARTIAL THRMPLAS [id number] 04:40:03* Test Item Value Reference Range Interpretation Comme [facility] APTT Patient (test code = 3173-2) See_Comment [Automated message] The system which generated this result transmitted reference range: 23 - 38 Seconds. The reference range was not used to interpret this result as normal/abnormal. BERLIN (test code = BERLIN) The [facility] patient population mean normal value for aPTT is 30 seconds. Lab Interpretation (test code = 20224-7) Normal [facility] HospitalCREATINE [id number] 04:38:17* Test Item Value Reference Range Interpretation Comme nts CK (test code = 9071104309) <20 33-194 L Lab Interpretation (test cod e = 04328-3) Abnormal [facility] HospitalPROTHROMBIN TIME / [id number] 04:38:02* Test Item Value Reference Range Interpretation Comme [facility] PROTIME PATIENT (test code = 5964-2) See_Comment [Automated messa ge] The system which generated this result transmitted reference range: 12.0 - 14.7 Seconds. The reference range was not used to interpret this result as normal/abnormal. INR (test code = 6301-6) Normal INR <1.1; Warfarin Therapeutic range 2.0 to 3.0 or 2.5 to 3.5, depending upon the indications. Lab Interpretation (test code = 82926-5) Normal [facility] HospitalCOMP. METABOLIC PANEL (86577)2021-06-21 04:34:40* Test Item Value Reference Range Interpretation Comme [facility] NA (test code = 7598412030) 134 mmol/L 135-145 L K (test code = 6173293795) 4.3 mmol/L 3.5-5.0 CL (test code = 7683793285) 100 mmol/L 98-108 CO2 TOTAL (test code = 1987747588) 26 mmol/L 23-31 AGAP (test code = 0961419659) 2-16 BUN (test code = 2624635586) 16 mg/dL 7-23 GLUCOSE (test code = 8880663477) 112 mg/dL 70-110 H CREATININE (test code = 7499506197) 0.72 mg/dL 0.50-1.04 TOTAL BILI (test code = 3076929559) 1.1 mg/dL 0.1-1.1 CALCIUM (test code = 8697307422) 9.2 mg/dL 8.6-10.6 T PROTEIN (test code = 7163133336) 6.9 g/dL 6.3-8.2 ALBUMIN (test code = 3506877884) 4.1 g/dL 3.5-5.0 ALK PHOS (test code = 7852578312) 104 U/L 34-122 ALTv (test code = 1742-6) 21 U/L 5-35 AST(SGOT) (test code = 9844580049) 28 U/L 13-40 eGFR (test code = 6120362318) mL/min/1.73m2 BERLIN (test code = BERLIN) Association of [...] or abnormalities in imaging tests). Lab Interpretation (test code = 38698-0) [facility]normal [facility]"
[2023-06-27 01:01] LABS: Absolute Lymphocytes (CBC) 4.2 K/uL (0.7-4.9); Hematocrit 42.3 % (36.0-45.0); MCV 97.2 fL (80-100); MPV 7.9 fL (7.6-11.3); Platelets 398 thou/uL (152-406); RBC Red Blood Cell Count 4.35 M/uL (3.86-4.86)
[2023-06-27 01:24] LABS: Albumin 3.3 g/dL (3.4-5.0); Bilirubin Total 0.2 mg/dL (0.2-1.0); Potassium 3.7 mEq/L (3.5-5.1); Protein, Total 6.9 g/dL (6.4-8.2)
--- NOTE | 2023-06-27 02:31 | ER ---
Nurse's Notes [facility] Name: Carmella Garcia Age: 42 yrs Sex: Female : 1980 Arrival Date: 06/26/2023 Time: 23:21 Bed 11 Private MD: Diagnosis: Odontogenic infection Presentation: 06/26 23:41 Chief complaint: Patient states: is being treated for sinus infeciton, Augmentin and rv then Azithromycin(5th day today). burning pain to the right cheek started today, with fever. took Ibuprofen at 1500, and Tylenol at 1800, and ASA at 2100. Coronavirus screen: At this time, the client does not indicate any symptoms associated with coronavirus-19. Ebola Screen: No symptoms or risks identified at this time. Initial Sepsis Screen: Does the patient meet any 2 criteria? No. Patient's initial sepsis screen is negative. Does the patient have a suspected source of infection? No. Patient's initial sepsis screen is negative. Risk Assessment: Do you want to hurt yourself or someone else? Patient reports no desire to harm self or others. Onset of symptoms was June 26, 2023. 23:41 Method Of Arrival: Ambulatory rv 23:41 Acuity: SUSHANT 3 rv Triage Assessment: 23:44 General: Appears uncomfortable, Behavior is calm, cooperative. rv 23:44 Pain: Complains of pain in right cheek. Neuro: Level of Consciousness is awake, alert, rv obeys commands, Oriented to person, place, time, situation. Cardiovascular: Capillary refill < 3 seconds Patient's skin is warm and dry. Respiratory: Airway is patent Respiratory effort is even, unlabored. GI: No signs and/or symptoms were reported involving the gastrointestinal system. : No signs and/or symptoms were reported regarding the genitourinary system. Derm: Skin is intact. Historical: - Allergies: 23:44 Sulfa (Sulfonamide Antibiotics); rv - PMHx: 23:44 Lupus erythematosus; rv - PSHx: 23:44 Appendectomy; section; Exploratory laparotomy; Total abdominal hysterectomy; rv - Immunization history:: Adult Immunizations up to date. - Social history:: Smoking status: Patient reports the use of cigarette tobacco products, smokes one-half pack cigarettes per day. - Family history:: not pertinent. Screenin:45 [facility] ED Fall Risk Assessment (Adult) History of falling in the last 3 months, rv including since admission No falls in past 3 months (0 pts) Score/Fall Risk Level 0 - 2 = Low Risk Oriented to surroundings, Maintained a safe environment, Educated pt \T\ family on fall prevention, incl call for assistance when getting out of bed, Assessed \T\ reinforced patient's understanding of fall precautions. Abuse screen: Denies threats or abuse. Denies injuries from another. Nutritional screening: No deficits noted. Tuberculosis screening: No symptoms or risk factors identified. Assessment: 23:55 General: Appears in no apparent distress. comfortable, well groomed, well developed, pf1 Behavior is calm, cooperative, appropriate for age, quiet. 23:55 Pain: Complains of pain in face and right cheek Pain currently is 7 out of 10 on a pain pf1 scale. Pain began today. Neuro: No deficits noted. Level of Consciousness is awake, alert, obeys commands, Oriented to person, place, time, situation. Cardiovascular: No deficits noted. Capillary refill < 3 seconds Patient's skin is warm and dry. Respiratory: No deficits noted. Airway is patent Respiratory effort is even, unlabored, Respiratory pattern is regular, symmetrical. GI: No deficits noted. No signs and/or symptoms were reported involving the gastrointestinal system. : No deficits noted. No signs and/or symptoms were reported regarding the genitourinary system. EENT: No deficits noted. No signs and/or symptoms were reported regarding the EENT system. Musculoskeletal: Reports pain in right cheek and face. 06/27 01:00 Reassessment: Patient appears in no apparent distress at this time. Patient and/or pf1 family updated on plan of care and expected duration. Pain level reassessed. Patient is alert, oriented x 3, equal unlabored respirations, skin warm/dry/pink. Patient states symptoms have improved. 02:00 Reassessment: Patient appears in no apparent distress at this time. Patient and/or pf1 family updated on plan of care and expected duration. Pain level reassessed. Patient is alert, oriented x 3, equal unlabored respirations, skin warm/dry/pink. Vital Signs: 06/26 23:41 BP 129 / 86; Pulse 91; Resp 18; Temp 98.7; Pulse Ox 96% ; Weight 104.33 kg; Height 5 rv ft. 9 in. ; 06/27 01:00 BP 110 / 79; Pulse 89; Resp 16; Pulse Ox 99% on R/A; Pain 7/10; pf1 02:00 BP 108 / 72; Pulse 85; Resp 16; Pulse Ox 97% on R/A; Pain 6/10; pf1 03:00 BP 105 / 69; Pulse 79; Resp 16; Pulse Ox 99% on R/A; Pain 4/10; pf1 06/26 23:41 Body Mass Index 33.96 (104.33 kg, 175.26 cm) rv 06/27 01:00 Pain Scale: Adult pf1 02:00 Pain Scale: Adult pf1 03:00 Pain Scale: Adult pf1 ED Course: 06/26 23:26 Patient arrived in ED. kj1 23:26 Enrique Sigala MD is Attending Physician. rt 23:44 Triage completed. rv 23:44 Arm band placed on right wrist. rv 23:45 Patient has correct armband on for positive identification. rv 06/27 00:51 Radiology exam delayed due to lab results not completed at this time. (BUN/Creatinine) eh4 IV insertion attempt and/or patient not having appropriate IV at this time. 00:53 Inserted saline lock: 22 gauge in right antecubital area, using aseptic technique. vk intraosseous access Accessed. 00:54 Test, Serum Sent. vk 00:54 CMP Sent. vk 00:54 CBC with Diff Sent. vk 01:49 CT Facial Bones W/ Con \T\ Mpr In Process Unspecified. EDMS 03:00 Provided Education on: prescriptions . pf1 03:00 No provider procedures requiring assistance completed. pf1 03:00 IV discontinued, intact, bleeding controlled, No redness/swelling at site. Pressure pf1 dressing applied. Administered Medications: 00:56 Drug: morphine IVP or IV 4 mg IVP once over 4 mins Route: IVP; Infused Over: 4 mins; pf1 Site: right antecubital; 01:50 Follow up: Response: No adverse reaction; Marked relief of symptoms; Pain is decreased; pf1 RASS: Alert and Calm (0) 01:28 Drug: Clindamycin IVPB 600 mg IVPB once over 30 mins; (mix in 50 mL) Route: IVPB; pf1 Infused Over: 30 mins; Site: right antecubital; 02:00 Follow up: Response: No adverse reaction; IV Status: Completed infusion pf1 02:20 Drug: morphine IVP or IV 4 mg IVP once over 4 mins Route: IVP; Infused Over: 4 mins; pf1 Site: right antecubital; 03:00 Follow up: Response: No adverse reaction; Marked relief of symptoms; Pain is decreased; pf1 RASS: Alert and Calm (0) Medication: 06/26 23:45 VIS not applicable for this client. rv Outcome: 06/27 02:30 Discharge ordered by MD. rt 03:00 Discharged to home ambulatory, pf1 03:00 Condition: improved pf1 03:00 Discharge instructions given to patient, Instructed on discharge instructions, follow up and referral plans. Demonstrated understanding of instructions, follow-up care, medications, Prescriptions given X 3, 03:49 Patient left the ED. pf1 Signatures: Dispatcher [employer] EDDago Hinkle RN RN rv Veena Kincaid kj1 Vijaya Lance 4 Enrique Sigala MD MD rt Finley, Pamala, RN RN pf1 Albina Davey Corrections: (The following items were deleted from the chart) 06/26 23:45 23:44 Social history: Smoking status: Patient denies any tobacco usage or history of. rvrv
--- NOTE | 2023-06-27 02:31 | EDPHYS ---
Physician Documentation [facility] Name: Carmella Garcia Age: 42 yrs Sex: Female : 1980 Arrival Date: 06/26/2023 Time: 23:21 Bed 11 Private MD: ED Physician Enrique Sigala HPI: 06/27 00:50 This 42 yrs old Female presents to ER via Ambulatory with complaints of Facial Swelling rt - BURNING ON ONE SIDE. 00:50 Patient presents to the ED with pain, reported swelling to the right side of the face rt for about 2 weeks. Patient was treated for presumed sinus infection with 5 days of Augmentin, and was changed to azithromycin which she is on day 5. States that her pain is gotten somewhat worse reports worsening swelling. Denies other acute complaints at this time, symptoms are moderate severity, no other aggravating or elevating factors.. Historical: - Allergies: 06/26 23:44 Sulfa (Sulfonamide Antibiotics); rv - PMHx: 23:44 Lupus erythematosus; rv - PSHx: 23:44 Appendectomy; section; Exploratory laparotomy; Total abdominal hysterectomy; rv - Immunization history:: Adult Immunizations up to date. - Social history:: Smoking status: Patient reports the use of cigarette tobacco products, smokes one-half pack cigarettes per day. - Family history:: not pertinent. ROS: 06/27 00:50 Constitutional: Negative for fever, chills, and weight loss, Cardiovascular: Negative rt for chest pain, palpitations, and edema, Respiratory: Negative for shortness of breath, cough, wheezing, and pleuritic chest pain, Abdomen/GI: Negative for abdominal pain, nausea, vomiting, diarrhea, and constipation, Skin: Negative for injury, rash, and discoloration, Neuro: Negative for headache, weakness, numbness, tingling, and seizure, Psych: Negative for depression, anxiety, suicide ideation, homicidal ideation, and hallucinations, ENT: Positive for Facial pain, swelling, Exam: 00:50 Constitutional: This is a well developed, well nourished patient who is awake, alert, rt and in no acute distress. Head/Face: Normocephalic, atraumatic. Chest/axilla: Normal chest wall appearance and motion. Nontender with no deformity. No lesions are appreciated. Cardiovascular: Regular rate and rhythm with a normal S1 and S2. No gallops, murmurs, or rubs. Normal PMI, no JVD. No pulse deficits. Respiratory: Lungs have equal breath sounds bilaterally, clear to auscultation and percussion. No rales, rhonchi or wheezes noted. No increased work of breathing, no retractions or nasal flaring. Abdomen/GI: Soft, non-tender, with normal bowel sounds. No distension or tympany. No guarding or rebound. No evidence of tenderness throughout. Skin: Warm, dry with normal turgor. Normal color with no rashes, no lesions, and no evidence of cellulitis. MS/ Extremity: Pulses equal, no cyanosis. Neurovascular intact. Full, normal range of motion. Neuro: Awake and alert, GCS 15, oriented to person, place, time, and situation. Cranial nerves II-XII grossly intact. Motor strength 5/5 in all extremities. Sensory grossly intact. Cerebellar exam normal. Normal gait. 00:50 ENT: Generally poor dentition, minimal right-sided facial swelling, no appreciable erythema.. Vital Signs: 06/26 23:41 BP 129 / 86; Pulse 91; Resp 18; Temp 98.7; Pulse Ox 96% ; Weight 104.33 kg; Height 5 rv ft. 9 in. ; 06/27 01:00 BP 110 / 79; Pulse 89; Resp 16; Pulse Ox 99% on R/A; Pain 7/10; pf1 02:00 BP 108 / 72; Pulse 85; Resp 16; Pulse Ox 97% on R/A; Pain 6/10; pf1 03:00 BP 105 / 69; Pulse 79; Resp 16; Pulse Ox 99% on R/A; Pain 4/10; pf1 06/26 23:41 Body Mass Index 33.96 (104.33 kg, 175.26 cm) rv 06/27 01:00 Pain Scale: Adult pf1 02:00 Pain Scale: Adult pf1 03:00 Pain Scale: Adult pf1 MDM: 06/26 23:55 Patient medically screened. rt 06/27 02:34 Differential Diagnosis Facial cellulitis, odontogenic abscess, facial abscess. Data rt reviewed: vital signs, lab test result(s), radiologic studies. I considered the following discharge prescriptions or medication management in the emergency department Medications were administered in the Emergency Department. See MAR. Care significantly affected by the following chronic conditions: Lupus. Counseling: I had a detailed discussion with the patient and/or guardian regarding the historical points, exam findings, and any diagnostic results supporting the discharge/admit diagnosis, lab results, radiology results, the need for outpatient follow up. 06/26 23:56 Order name: CBC with Diff; Complete Time: 01:26 rt 06/26 23:56 Order name: CMP; Complete Time: : rt 06/26 23:59 Order name: Test, Serum; Complete Time: : rt 06/26 23:59 Order name: CT Facial Bones W/ Con \T\ Mpr rt Administered Medications: 00:56 Drug: morphine IVP or IV 4 mg IVP once over 4 mins Route: IVP; Infused Over: 4 mins; pf1 Site: right antecubital; 01:50 Follow up: Response: No adverse reaction; Marked relief of symptoms; Pain is decreased; pf1 RASS: Alert and Calm (0) 01:28 Drug: Clindamycin IVPB 600 mg IVPB once over 30 mins; (mix in 50 mL) Route: IVPB; pf1 Infused Over: 30 mins; Site: right antecubital; 02:00 Follow up: Response: No adverse reaction; IV Status: Completed infusion pf1 02:20 Drug: morphine IVP or IV 4 mg IVP once over 4 mins Route: IVP; Infused Over: 4 mins; pf1 Site: right antecubital; 03:00 Follow up: Response: No adverse reaction; Marked relief of symptoms; Pain is decreased; pf1 RASS: Alert and Calm (0) Disposition Summary: 06/27/23 02:30 Discharge Ordered Notes: Location: Home rt Problem: new rt Symptoms: have improved rt Condition: Stable rt Diagnosis - Odontogenic infection rt Followup: rt - With: Private Physician - When: 2 - 3 days - Reason: Discharge Instructions: - Discharge Summary Sheet rt Forms: - Medication Reconciliation Form rt - Thank You Letter rt - Antibiotic Education rt - Prescription Opioid Use rt - Patient Portal Instructions rt - Leadership Thank You Letter rt Prescriptions: - gabapentin 100 mg Oral capsule - take 1 capsule ORAL route 3 times per day; 30 capsule; Refills: 0, Product rt Selection Permitted - Clindamycin HCl 300 mg Oral Capsule - take 1 capsule ORAL route every 6 hours for 10 days; 40 capsule; Refills: 0, rt Product Selection Permitted - Fluconazole 150 mg Oral tablet - take 1 tablet ORAL route once daily; 7 tablet; Refills: 0, Product Selection rt Permitted Signatures: Dispatcher [employer] Dago Meyer RN RN rv Enrique Sigala MD MD rt Alejandra Marquis RN RN pf1 Corrections: (The following items were deleted from the chart) 06/26 23:45 23:44 Social history: Smoking status: Patient denies any tobacco usage or history of. rvrv
[2023-06-27 04:12] VITALS: BP 129/86; TEMP 98.7; O2SAT 96
--- NOTE | 2023-06-27 20:51 | RAD REPORT ---
EXAM DESCRIPTION: CT - Facial Bones W Con Mpr - 06/27/2023 6:47 am CLINICAL HISTORY: 42 years, Female, right facial pain and swelling COMPARISON: None TECHNIQUE: Multiple transaxial tomograms of the Maxillofacial bones were performed utilizing 2 mm sl ice thickness at 2 mm interval reconstruction after the administration of IV contrast. In addition 2- D multiplanar reconstructions in the coronal and sagittal plane were performed and reviewed. An individualized dose optimization technique, Automated Exposure Control, was utilized for the perfo rmed procedure. FINDINGS: The paranasal sinuses, nasal bones, orbital wall, zygomatic bones, temporomandibular joint s, and mandible demonstrate to be within normal limits. No evidence for acute bony injuries. The globes, intraconal and extraconal elements demonstrate to be within normal limits.. Superior medial and inferior turbinates are grossly unremarkable. Nasopharynx demonstrate clear. No focal masses were demonstrated. The rest of the soft tissue and bony structures are grossly unre markable. No evidence for significant lymphadenopathy and/or masses. Dental amalgam artifact is noted. Dental cavities are noted within the right and left inferior teeth with questionable otogenic cyst an d/or odontogenic abscess teeth #30 and 17 and 18. IMPRESSION: No evidence for acute bony injuries. Dental cavities are noted within the right and left inferior teeth with questionable otogenic cyst an d/or odontogenic abscess teeth #30 and 17 and 18. Electronically signed by: Wilbur Hadley MD 06/27/2023 02:09 AM W[employer] MECH[employer]IC Due to temporary technical issues with the PACS/Fluency reporting system, reports are being signed by the in house radiologists without review as a courtesy to insure prompt reporting. The interpreting radiologist is fully responsible for the content of the report.
== END ==
LOC: ER 23:21
DX: K04.7 Periapical abscess without sinus (principal); F17.210 Nicotine dependence, cigarettes, uncomplicated; Z88.2 Allergy status to sulfonamides
CPT/HCPCS: 96365; 36415; 70487; 76377; 36680; 96375; 99285; Q9967

== ENCOUNTER 2024-01-13 16:56 | Emergency (ER) | payer OTHER ==
--- OUTSIDE RECORDS SUMMARY | 2024-01-13 17:01 | XMS REPORT | Continuity of Care Document ---
Author Name Unknown Address [address] [facility] [place] [address] [facility] Address [address] [facility] [address] [place] [address] Care Team Providers Care Chief Clinical Dietitian Name Role Phone Albina Webber Primary Care Physician CLEMENT BARAHONA Attending Clinician Ashley jori LAURENTCHANTALE FERNANDES-SON Attending Clinician Unavailable SHAISTA COLINDRES Attending Clinician Unavailable CECIL BARNEY Attending Clinician Unavailab azalea WHITAKER MD Attending Clinician Unavailab CUCO Bose Attending Clinician Unava ilRAMOS Rick Attending Clinician Unavailable BON MONTELONGO Attending Clinician UnavailJENNIFER Villafana Attending Clinician Unavailable TROY TAN Attending Clinician Unavai lable [id number] Attending Clinician Unavailable PHIL GARCIA Attending Clinician Unavailable TROY HANEY Attending Clinician Unavailable JOSE PINO Attending Clinician Unavailable LAB53 Attending Clinician Unavailable LAB90 Attending Clinician Unavailable ANA LUISA HEREDIA Attending Clinician Unavailable AGUSTO TUCKER Attending Clinician Unavailable ALFREDO VIRAMONTES Attending Clinician Unavailable DORY MELGAR Attending Clinician Unavailable SHAREE CAM Attending Clinician Unavailable JUSTIN HENLEY Attending Clinician Unavaila CECIL Alanis Attending Clinician Unavailab REBEKAH Bates Attending Clinician Unavail able LAB47 Attending Clinician Unavailable Cuco Andrews Attending Clinician Unavailable DOUGLAS PRINCE Attending Clinician Unavailable FRANCISCO SAMANIEGO Attending Clinician Unavailable Francisco Samaniego DO Attending Clinician [phone] ZOILA MCNULTY S Attending Clinician Unavailable Mcnulty PAC, Zoila S Attending Clinician [phone] Doctor Unassigned, [facility] Attending Clinician U wenceslao Gutierrez RN, Claudine Mccauley Attending Clinician [phone] Olga Camejo MD Attending Clinician [phone] Liam GONSALEZ, Gifty Attending Clinician [phone] Melania Ledbetter MD Attending Clinician [phone] MELANIA LEDBETTER Attending Clinician Unavailable Cuco Andrews Admitting Clinician Unavailable FRANCISCO SAMANIEGO Admitting Clinician Unavailable Gifty Wheeler MD Admitting Clinician [phone] GIFTY WHEELER Admitting Clinician Unavailable Payers Payer Name Policy Type Policy Number Effective Date Expirati on Date Source AET[employer] MP [facility] ON/OFF 9 [id number] 2023 00:00:00 COMMERCIAL NON-CONTRACT GENERIC [id number] 2021 00:00:00 Problems Condition Name Condition Details Condition Category Status Onset Date Resolution Date Last Treatment Date Treating Clinician Comments Source Unable to lose weight Unable to lose weight Disease Active 10-06 00:00: 00 Leanrda hidalgo Class 2 obesity due to excess calories without serious comorbidit y with body mass index (BMI) of 36.0 to 36.9 in adult Class 2 obesity due to excess calories without serious comorbidit y with body mass index (BMI) of 36.0 to 36.9 in adult Disease Active 10-06 00:00: 00 Leandra hidalgo Family history of hypertensi on Family history of hypertensi on Disease Active 08-13 00:00: 00 Leandra hidalgo Palpitatio ns Palpitatio ns Disease Active 08-13 00:00: 00 Leandra Seybold - Externa l Mild major depression Mild major depression Disease Active 3-04 00:00: 00 Leandra Nidia Wells Externa l Systemic lupus erythemato kimberly, unspecifie d SLE type, unspecifie d organ involvemen t status (multi HCC) Systemic lupus erythemato kimberly, unspecifie d SLE type, unspecifie d organ involvemen t status (multi HCC) Disease Active 3-04 00:00: 00 Leandra Baeza l Pyelonephr itis Pyelonephr itis Disease Active 2-10 00:00: 00 [facility] Obesity (BMI 30-39.9) Obesity (BMI 30-39.9) Disease Active 05-14 00:00: 00 [facility] Allergies, Adverse Reactions, Alerts Allergy Name Allergy Type Status Severity Reaction(s) Onset Date Inactive Date Treating Clinician Comments Source Codeine Propensi ty to adverse reaction s Active Nausea and Vomiting 11-15 00:00: 00 Leandra hidalgo Sulfa (Sulfona mide Antibiot ics) Propensi ty to adverse reaction to drug Active 11-15 00:00: 00 Sulfa Drugs Propensi ty to adverse reaction s Active Other 07-04 00:00: 00 Rash, fever Leandra Baeza gwen SULFA (SULFONA MIDE ANTIBIOT ICS) Drug Class Active Other-Cmnt 07-04 00:00: 00 [facility] Sulfa (Sulfona mide Antibiot ics) Propensi ty to adverse reaction s Active Other - See comments 07-04 00:00: 00 Rash, fever [facility] No Known Allergie s DA Active U 01-23 00:00: 00 [facility] NO KNOWN ALLERGIE S Drug Class Active [facility] Social History Social Habit Start Date Stop Date Quantity Comments Source Sexual orientation U [facility] Gender identity Lindsay Jacob - External History of tobacco use Passive smoker Leandra adam - External Alcoholic beverage intake 2023-10-21 00:00:00 2023-10-21 00:00:00 Ex-drinker (finding) Leandra Jacob - External Alcohol intake 2023-08-14 00:00:00 2023-08-14 00:00:00 Lifetime non-drinker (finding) Leandra Jacob - External Exposure to SARS-CoV-2 (event) 2022-01-01 00:00:00 2022-01-11 06:41:00 Not sure [facility] History of Social function 2022-01-11 00:00:00 2022-01-11 00:00:00 [facility] Tobacco use and exposure 2021-06-21 00:00:00 2021-06-21 00:00:00 User of smokeless tobacco [facility] Tobacco Comment 2021-06-21 00:00:00 2021-06-21 00:00:00 occasional smoker 1-3 sticks per week [facility] Sex assigned at 1980 00:00:00 1980 00:00:00 Leandra Blum Smoking Status Start Date Stop Date Source Occasional tobacco smoker 2023-10-01 00:00:00 Leandra Wells External Smokes tobacco daily 2022-08-07 00:00:00 Leandra Blum Medications Ordered Medication Name Filled Medication Name Start Date Stop Date Current Medication? Ordering Clinician Indication Dosage Frequency Signature (SIG) Comments Components Source Amoxicillin -Pot Clavulanate 875-125 MG oral Tablet 12-23 00:00: 00 Yes [id number] 1{tbl} Q.5D Take 1 tablet by mouth 2 times daily. Leandra hidalgo FLUTICASONE PROPIONATE, NASAL, (Flonase) 50 MCG/ACT nasal Suspension 12-22 00:00: 00 Yes [id number] 50ug QD Use 1 spray (50 mcg total) in each nostril daily as needed for rhinitis. Leandra hidalgo methylPREDN ISolone 4 MG oral Tablet Therapy Pack 12-22 00:00: 00 Yes [id number] Take 1 vignesh by mouth See Admin Instructio ns Use as directed. Leandra hidalgo Ondansetron (ZOFRAN) 4 MG oral TABLET DISPERSIBLE 12-22 00:00: 00 01-06 04:59 :00 Yes [id number] 4mg Q.[id number] 3D Take 1 tablet (4 mg total) by mouth every 8 hours as needed for nausea for up to 14 days. Leandra hidalgo Propranolol HCl 10 MG oral Tablet 12-19 00:00: 00 Yes [id number] 10mg Q.5D Take 1 tablet (10 mg total) by mouth 2 times daily as needed (Anxiety) Only to use as needed for palpations , heart rate must be above 60.. Leandra hidalgo Pregabalin 75 MG oral Capsule 12-18 00:00: 00 Yes [id number] TAKE ONE (1) CAPSULE BY MOUTH 2 TIMES DAILY. Leandra hidalgo Ondansetron (ZOFRAN) 4 MG oral TABLET DISPERSIBLE 30 00:00: 00 12-22 00:00 :00 No [id number] DISSOLVE ONE (1) TABLET BY MOUTH EVERY 8 HOURS NEEDED. Leandra hidalgo Elagolix Sodium 150 MG oral Tablet 10-20 00:00: 00 Yes [id number] 150mg QD Take 150 mg by mouth daily. Leandra hidalgo Ketorolac Tromethamin e 10 MG oral Tablet 10-20 00:00: 00 Yes [id number] 10mg Q.25D Take 1 tablet (10 mg total) by mouth every 6 hours as needed for pain. Leandra hidalgo methylPREDN ISolone 4 MG oral Tablet Therapy Pack 10-11 00:00: 00 12-22 00:00 :00 No [id number] 1{vignesh} Take 1 vignesh by mouth See Admin Instructio ns Use as directed. Leandra hidalgo Ondansetron HCl 4 MG oral Tablet 10-11 00:00: 00 10-20 00:00 :00 No [id number] 4mg Q.[id number] 3D Take 1 tablet (4 mg total) by mouth every 8 hours as needed for nausea. Leandra hidalgo Semaglutide -PABLO-Jose Ramon ght Management 0.25 MG/0.5ML Subcutaneou s Solution Auto-inject or 10-06 00:00: 00 10-20 00:00 :00 No [id number] .25mg Inject 0.25 mg into the skin once a week. Leandra hidalgo Bupropion HCL XL 150 MG OR TB24 10-03 00:00: 00 10-20 00:00 :00 No Leandra hidalgo Escitalopra m Oxalate 10 MG oral Tablet 10-03 00:00: 00 10-20 00:00 :00 No Leandra hidalgo Ketorolac Tromethamin e (TORADOL) 30 mg/mL 09-15 17:15: 00 09-15 17:14 :00 No [id number] 60mg 60 mg, intramuscu lar, ONCE, On Fri09/16/23 at 1215, For 1 dose Leandra hidalgo Triamcinolo ne Acetonide (KENALOG) 40 mg/mL 09-15 14:45: 00 09-15 17:01 :59 No [id number] 60mg Leandra hidalgo Pregabalin (Lyrica) 75 MG oral Capsule 09-15 00:00: 00 Yes [id number] 75mg Take 1 capsule (75 mg total) by mouth 2 times daily. Leandra hidalgo Tramadol HCl (ULTRAM) 50 MG oral Tablet 09-15 00:00: 00 10-16 04:59 :00 No [id number] 50mg Q.[id number] [id number] 3D Take 1 tablet (50 mg total) by mouth every 8 hours as needed for pain. Leandra hidalgo methylPREDN ISolone (Medrol) 4 MG oral Tablet Therapy Pack 09-15 00:00: 00 09-30 00:00 :00 No [id number] 1{vignesh} Take 1 vignesh by mouth See Admin Instructio ns Use as directed.. Leandra Wells Sashaa l Gabapentin 100 MG oral Capsule 5-04 00:00: 00 09-30 00:00 :00 No [id number] 100mg Q.25D Take 1 capsule (100 mg total) by mouth 4 times daily as needed No driving on medication . Leandra Baeza l Propranolol HCl 10 MG oral Tablet 4-04 00:00: 00 Yes [id number] 10mg Q.5D Take 1 tablet (10 mg total) by mouth 2 times daily as needed (Anxiety) Only to use as needed palpations , heart rate must be above 60.. Leandra Baeza l Ondansetron (ZOFRAN) 4 MG oral TABLET DISPERSIBLE 4-04 00:00: 00 Yes [id number] 4mg Q.[id number] 3D Take 1 tablet (4 mg total) by mouth every 8 hours as needed. Leandra Baeza l Gabapentin 100 MG oral Capsule 3-04 14:01: 31 07-13 00:00 :00 No 100mg Take 1 capsule (100 mg total) by mouth 3 times daily. Leandra Baeza l Ondansetron (ZOFRAN) 4 MG oral TABLET DISPERSIBLE 3-04 00:00: 00 Yes [id number] 4mg Q.[id number] 3D Take 1 tablet (4 mg total) by mouth every 8 hours as needed. Leandra Wells Sashaa l Gabapentin 100 MG oral Capsule 3-04 00:00: 00 Yes [id number] 100mg Take 1 capsule (100 mg total) by mouth 4 times daily. Leandra Wells Externa l Gabapentin 100 MG oral Capsule 0 2-17 00:00: 00 07-13 00:00 :00 No 100mg Take 1 capsule (100 mg total) by mouth 3 times daily. Leandra Wells Externa l Ondansetron (ZOFRAN) 4 MG oral TABLET DISPERSIBLE 0 2-12 00:00: 00 Yes [id number] 4mg Q.[id number] 3D Take 1 tablet (4 mg total) by mouth every 8 hours as needed. Leandra hidalgo Azithromyci n 250 MG oral Tablet 06-23 00:00: 00 06-29 05:59 :00 No [id number] Take 2 tablets by mouth on day 1 then 1 tablet by mouth daily for 4 days thereafter .. Leandra hidalgo Bupropion HCL XL 150 MG OR TB24 05-15 00:00: 00 Yes [id number] 150mg Take 1 tablet (150 mg total) by mouth daily. Leandra hidalgo Escitalopra m Oxalate 10 MG oral Tablet 05-15 00:00: 00 Yes [id number] 10mg Take 1 tablet (10 mg total) by mouth daily. Leandra hidalgo methylPREDN ISolone 4 MG oral Tablet Therapy Pack 2022-05 00:00: 00 07-13 00:00 :00 No [id number] 1{vignesh} Take 1 vignesh by mouth See Admin Instructio ns Use as directed. Leandra hidalgo Benzonatate 200 MG oral Capsule 2022-05 00:00: 00 07-13 00:00 :00 No [id number] 200mg Q.18072241 [id number] 3D Take 1 capsule (200 mg total) by mouth 3 times daily as needed for cough. Leandra hidalgo Oseltamivir Phosphate (Tamiflu) 75 MG oral Capsule 2022-05 00:00: 00 04-04 05:59 :00 No [id number] 75mg Take 1 capsule (75 mg total) by mouth 2 times daily for 5 days. Leandra hidalgo FLUTICASONE PROPIONATE, NASAL, 50 MCG/ACT nasal Suspension 01-20 00:00: 00 07-13 00:00 :00 No [id number] 50ug Use 1 spray (50 mcg total) in each nostril daily. Leandra hidalgo Ondansetron HCl 4 MG oral Tablet 01-20 00:00: 00 06-23 00:00 :00 No [id number] 4mg Q.[id number] 3D Take 1 tablet (4 mg total) by mouth every 8 hours as needed for nausea. Leandra hidalgo PAXLOVID STANDARD (30) (300/100) Therapy Pack 01-20 00:00: 00 01-26 04:59 :00 No [id number] Take two 150 mg nirmatrelv ir (pink) tablets with one 100 mg ritonavir (white) tablet by mouth two times daily for 5 days. Leandra hidalgo Bupropion HCL XL 150 MG OR TB24 01-03 00:00: 00 Yes [id number] 150mg TAKE ONE (1) TABLET (150 MG TOTAL) BY MOUTH DAILY. Leandra hidalgo Escitalopra m Oxalate 10 MG oral Tablet 01-03 00:00: 00 Yes [id number] 10mg TAKE ONE (1) TABLET (10 MG TOTAL) BY MOUTH DAILY. Leandra hidalgo Methylpredn isolone Acetate (DEPO-MEDRO L) [80 mg/ml] 09-24 14:45: 00 09-24 14:37 :00 No [id number] 80mg Leandra hidalgo Methotrexat e 50 MG/2ML injection Solution 09-24 00:00: 00 07-13 00:00 :00 No [id number] Inject 0.4ml SC once a week Leandra hidalgo Escitalopra m Oxalate (Lexapro) 10 MG oral Tablet 09-03 00:00: 00 Yes [id number] 10mg Take 1 tablet (10 mg total) by mouth daily Leandra hidalgo Bupropion HCL XL 150 MG OR TB24 09-03 00:00: 00 Yes [id number] 150mg Take 1 tablet (150 mg total) by mouth daily Leandra hidalgo Ondansetron (ZOFRAN) 4 MG oral TABLET DISPERSIBLE 09-03 00:00: 00 06-23 00:00 :00 No [id number] 4mg Q.[id number] 3D Take 1 tablet (4 mg total) by mouth every 8 hours as needed Leandra hidalgo Ondansetron HCl 4 MG oral Tablet 08-26 00:00: 00 01-20 00:00 :00 No [id number] 4mg Q.56971426 [id number] 3D Take 1 tablet (4 mg total) by mouth every 8 hours as needed for nausea Leandra hidalgo methylPREDN ISolone 4 MG oral Tablet Therapy Pack 08-26 00:00: 00 09-24 00:00 :00 No [id number] 1{vignesh} Take 1 vignesh by mouth See Admin Instructio ns Use as directed Leandra hidalgo predniSONE (DELTASONE) 10 MG oral tablet 30 00:00: 00 09-24 00:00 :00 No [id number] 1 pill twice daily for 5 days then 1 pill once daily for 5 days Leandra hidalgo iopamidol (ISOVUE 370-500 mL) injection 64 mL 01-11 14:00: 00 01-11 12:59 :00 No [id number] 64mL 64 mL, Intravenou s, ONCE, 1 dose, On Fri01/11/22 at 0900, Routine [facility] ondansetron (ZOFRAN (PF)) injection 4 mg 01-11 13:15: 00 01-11 12:35 :00 No 4mg 4 mg, Slow IV Push, ONCE, 1 dose, On Fri01/11/22 at 0815, Routine [facility] morpHINE (4 mg/mL) injection 4 mg 01-11 13:15: 00 01-11 12:36 :00 No 4mg 4 mg, Slow IV Push, ONCE, 1 dose, On Fri01/11/22 at 0815, STAT [facility] piperacilli n-tazobacta m (ZOSYN) 3.375 g in NaCl 0.9% (NS) 50 mL MINI-BAG 01-11 12:31: 00 01-11 13:06 :00 No 3.375g 3.375 g, IV Piggyback, ONCE, 1 dose, On Fri01/11/22 at 0745, Administer over 30 Minutes, 50 mL
Reas on for Anti-Infec tive: Empiric Therapy for Suspected Infection< br>Empiric Therapy Site: Skin / Soft tissue
Duration of therapy: 72 hours [facility] dexamethaso ne sod phos PF injection 10 mg 01-11 12:15: 00 01-11 12:30 :00 No 10mg 10 mg, Slow IV Push, ONCE, 1 dose, On Fri01/11/22 at 0715, 1 mL [facility] chlorhexidi ne 0.12 % mouthwash 01-11 00:00: 00 Yes [id number] 15mL Swish and spit out 15 mL in the morning and 15 mL in the evening. [facility] methylPREDN ISolone (MEDROL, VIGNEHS,) 4 mg tablets 01-11 00:00: 00 Yes [id number] Take by mouth SEE-INSTRU CTIONS. follow package directions [facility] Ondansetron (ZOFRAN) 4 MG oral TABLET DISPERSIBLE 01-11 00:00: 00 09-03 00:00 :00 No 4mg Q.[id number] 3D Take 4 mg by mouth every 8 hours as needed Leandra hidalgo clindamycin 150 mg capsule 01-11 00:00: 00 01-19 04:59 :00 No [id number] 300mg Take 2 capsules by mouth 4 (four) times daily for 7 days. [facility] HYDROcodone -acetaminop hen (NORCO) 10-325 mg tablet 01-11 00:00: 00 01-19 04:59 :00 No [id number] .5{tbl} Take 0.5-1 tablets by mouth every 6 (six) hours as needed for Pain (scale 7-10) for up to 7 days. Indication s: acute pain [facility] Dose Unknown 11-15 00:00: 00 No [...] 1 dose, On Fri07/04/21 at 1330, STAT [facility] ondansetron (ZOFRAN (PF)) injection 4 mg 07-04 19:30: 00 07-04 18:40 :00 No 4mg 4 mg, Slow IV Push, ONCE, 1 dose, On Fri07/04/21 at 1330, KEON [facility] NaCl 0.9% (NS) bolus infusion 500 mL 07-04 19:30: 00 07-04 19:40 :00 No 500mL at 999 mL/hr, 500 mL, IV Infusion, ONCE, 1 dose, On Fri07/04/21 at 1330, STAT [facility] NaCl 0.9% (NS) bolus infusion 1,000 mL 07-04 18:00: 00 07-04 17:58 :00 No 1000mL at 999 mL/hr, 1,000 mL, IV Infusion, ONCE, 1 dose, On Fri07/04/21 at 1200, STAT [facility] acetaminoph en (CHILDREN'S ACETAMINOPH EN) 160 mg/5 mL (5 mL) oral suspension 650 mg 07-04 17:10: 00 07-04 17:08 :00 No 650mg 650 mg, Oral, ONCE, 1 dose, On Fri07/04/21 at 1115, Routine [facility] predniSONE 20 mg tablet 07-04 00:00: 00 07-14 05:59 :00 No [id number] Take 3 tablets by mouth every morning for 3 days, THEN 2 tablets every morning for 3 days, THEN 1 tablet every morning for 3 days. [facility] ciprofloxac in 250 mg tablet 06-27 00:00: 00 No 1mg acetaminoph en (TYLENOL) 325 mg tablet 06-25 06:51: 01 Yes Take by mouth every 6 (six) hours as needed. [facility] naproxen 250 mg tablet 06-25 06:51: 01 Yes 250mg Take 250 mg by mouth 2 (two) times daily with meals. [facility] vitamin B-12 (CYANOCOBAL HIGHTOWER) tablet 1,000 mcg 06-24 15:00: 00 Yes 1000ug 1,000 mcg, Oral, DAILY, First dose on 06/24/21 at 0900, Until Discontinu ed, Routine [facility] vitamin B-12 1,000 mcg tablet 06-24 00:00: 00 07-25 04:59 :00 No [id number] 1000ug Take 1 tablet by mouth daily for 30 days. [facility] ibuprofen 800 mg tablet 06-23 18:52: 02 Yes 800mg Take 800 mg by mouth every 8 (eight) hours as needed. [facility] acetaminoph en (TYLENOL) 325 mg tablet 06-23 18:52: 02 Yes Take by mouth every 6 (six) hours as needed. [facility] naproxen 250 mg tablet 06-23 18:52: 02 Yes 250mg Take 250 mg by mouth 2 (two) times daily with meals. [facility] magnesium sulfate in water 2 gram/50 mL (4 %) infusion 2 g 06-23 15:30: 00 06-23 15:33 :00 No 2g 2 g, IV Piggyback, ONCE, 1 dose, On 06/23/21 at 0930, Routine [facility] acetaminoph en-codeine (TYLENOL #3) 300-30 mg tablet 1 tablet 06-23 07:51: 31 Yes 1{tbl} 1 tablet, Oral, Q6HPRN, Starting on Fri06/23/21 at 0151, Until Discontinu ed, Routine, Pain (scale 4-6) [facility] omeprazole 20 mg capsule 06-23 00:00: 00 07-24 04:59 :00 No [id number] 20mg Take 1 capsule by mouth daily for 30 days. [facility] sulfamethox azole-trime thoprim (BACTRIM DS) 800-160 mg per tablet 06-23 00:00: 00 07-05 05:59 :00 No [id number] 1{tbl} Take 1 tablet by mouth 2 (two) times daily for 11 days. [facility] HYDROcodone -acetaminop hen 10-325 mg tablet 06-23 00:00: 00 07-01 05:59 :00 No [id number] 1{tbl} Take 1 tablet by mouth every 8 (eight) hours as needed for Pain (scale 7-10) for up to 7 days. Indication s: acute pain [facility] levoFLOXaci n 750 mg tablet 06-23 00:00: 00 06-23 00:00 :00 No [id number] 750mg Take 1 tablet by mouth every 24 (twenty-fo ur) hours for 4 days. [facility] NaCl 0.9% (NS) injection 10 mL 06-22 18:40: 31 Yes 10mL 10 mL, Slow IV Push, PRN, Starting on Fri06/22/21 at 1240, Until Discontinu ed, Routine, line maintenanc e [facility] lidocaine 1% (PF) (XYLOCAINE) injection 5 mL 06-22 18:40: 31 Yes 5mL 5 mL, Subcutaneo us, PRN, Starting on Fri06/22/21 at 1240, Until Discontinu ed, Routine, Local anesthesia [facility] sennosides- docusate sodium (SENOKOT-S) 8.6-50 mg per tablet 1 tablet 06-22 15:00: 00 Yes 1{tbl} 1 tablet, Oral, DAILY, First dose on Fri06/22/21 at 0900, Until Discontinu ed, Routine [facility] enoxaparin (LOVENOX) injection 40 mg 06-21 23:00: 00 Yes 40mg 40 mg, Subcutaneo us, DAILY, First dose on Fri06/21/21 at 1700, Until Discontinu ed, Routine [facility] butalbital- acetaminoph en-caff (ESGIC) 50-325-40 mg tablet 1 tablet 06-21 20:30: 00 06-21 19:49 :00 No 1{tbl} 1 tablet, Oral, ONCE NOW, 1 dose, On Fri06/21/21 at 1430, Routine [facility] ceFEPIme (MAXIPIME) 2,000 mg in NaCl 0.9% (NS) 100 mL MINI-BAG 06-21 18:00: 00 Yes 2000mg 2,000 mg, IV Piggyback, Q8H ABX, First dose (after last modificati on) on Fri06/21/21 at 1200, Until Discontinu ed, Administer over 30 Minutes, 100 mL
Reas on for Anti-Infec tive: Documented Infection< br>Documen ras Infection Site: Urine
D uration of Therapy: 7 days [facility] polyethylen e glycol 3350 powder 17 g 06-21 17:00: 00 Yes 17g 17 g, Oral, DAILY, First dose on Fri06/21/21 at 1100, Until Discontinu ed, Routine [facility] cyanocobala min (VITAMIN B12) injection 1,000 mcg 06-21 14:30: 00 06-23 14:23 :00 No 1000ug 1,000 mcg, Intramuscu lar, Q24H, 3 doses, First dose on Fri06/21/21 at 0830, Last dose on Fri06/23/21 at 0830, [facility] HYDR[facility] -acetaminop hen (NORCO) 10-325 mg tablet 1 tablet 06-21 09:15: 31 Yes 1{tbl} 1 tablet, Oral, Q6HPRN, Starting on Magdalene 06/21/21 at 0315, Until Discontinu ed, Routine, Pain (scale 7-10) [facility] ondansetron (ZOFRAN (PF)) injection 4 mg 06-21 09:05: 11 Yes 4mg 4 mg, Slow IV Push, Q6HPRN, Starting on Magdalene 06/21/21 at 0305, Until Discontinu ed, Routine, Nausea and Vomiting (N/V) [facility] acetaminoph en (TYLENOL) tablet 650 mg 06-21 09:05: 11 Yes 650mg 650 mg, Oral, Q6HPRN, Starting on Magdalene 06/21/21 at 0305, Until Discontinu ed, Routine, Pain (scale 1-3) [facility] morpHINE injection 4 mg 06-21 08:00: 00 06-21 06:59 :00 No 4mg 4 mg, Slow IV Push, ONCE, 1 dose, On Magdalene 06/21/21 at 0200, STAT [facility] acetaminoph en (CHILDREN'S ACETAMINOPH EN) 160 mg/5 mL (5 mL) oral suspension 1,000 mg 06-21 07:15: 00 06-21 06:15 :00 No 1000mg 1,000 mg, Oral, ONCE, 1 dose, On Magdalene 06/21/21 at 0115, Routine [facility] ketorolac (TORADOL) injection 30 mg 06-21 06:30: 00 06-21 05:33 :00 No 30mg 30 mg, Slow IV Push, ONCE, 1 dose, On Magdalene 06/21/21 at 0030, KEON
Fa culty member approving Restricted medication : OLGA CAMEJO [facility] vancomycin (VANCOCIN) 1,500 mg in NaCl [...]
D uration of Therapy: Other (see Comments) [facility] ceFEPIme (MAXIPIME) injection 1,000 mg 06-21 05:30: 00 06-21 04:59 :00 No 1000mg 1,000 mg, IV Piggyback, ONCE, 1 dose, On Fri06/20/21 at 2330, STAT
Re ason for Anti-Infec tive: Empiric Therapy for Suspected Infection< br>Empiric Therapy Site: Blood
D uration of therapy: 72 hours [facility] NaCl 0.9% (NS) bolus infusion 1,000 mL 06-21 04:15: 00 06-21 05:19 :00 No 1000mL at 999 mL/hr, 1,000 mL, IV Infusion, ONCE, 1 dose, On Fri06/20/21 at 2215, STAT [facility] HYDROcodone -acetaminop hen (NORCO) 10-325 mg tablet 06-21 03:06: 45 06-21 00:00 :00 No 1{tbl} Take 1 tablet by mouth every 4 (four) hours as needed. [facility] busPIRone 10 mg tablet 10 03:06: 45 06-21 00:00 :00 No 10mg Take 10 mg by mouth 2 (two) times daily as needed. [facility] predniSONE 10 mg tablet 10 03:06: 45 06-21 00:00 :00 No 10mg Take 10 mg by mouth daily. [facility] BUPROPION HCL (WELLBUTRIN ORAL) 06-21 03:06: 45 06-21 00:00 :00 No 200mg Take 200 mg by mouth daily. [facility] prednisone 20 mg tablet 08 00:00: 00 No mg phenazopyri dine 100 mg tablet 06-19 00:00: 00 No 1mg Macrobid 100 mg capsule 06-19 00:00: 00 No 1mg amoxicillin -clavulanat e (AUGMENTIN) 875-125 mg per tablet - 00:00: 00 06-21 00:00 :00 No 1{tbl} Take 1 tablet by mouth 2 (two) times daily. [facility] Immunizations Ordered Immunization Name Filled Immunization Name Date Status Comments Source Td 2014-11-29 00:00:00 Completed [facility] Td 2014-11-29 00:00:00 Completed [facility] Td 2014-11-29 00:00:00 Completed [facility] Td 2014-11-29 00:00:00 Completed [facility] Td 2014-11-29 00:00:00 Completed [facility] Td (adult) 2014-11-29 00:00:00 Completed Leandra Seybold - External Td (adult) 2014-11-29 00:00:00 Completed Leandra Seybold - External Td (adult) 2014-11-29 00:00:00 Completed Leandra Seybold - External Td (adult) 2014-11-29 00:00:00 Completed Leandra Seybold - External Td (adult) 2014-11-29 00:00:00 Completed Leandra Seybold - External TD, NOS Unknown Completed [facility] Td (adult) Unknown Completed Leandra Se [...] Unknown Completed Leandra Se ybold - External Vital Signs Vital Name Observation Time Observation Value Comments S ource Systolic blood pressure 2023-10-21 18:58:00 112 mm[Hg] Leandra Seybo ld - External Diastolic blood pressure 2023-10-21 18:58:00 77 mm[Hg] Leandra Seybo ld - External Heart rate 2023-10-21 18:58:00 83 /min Kelse y Seybold - External Respiratory rate 2023-10-21 18:58:00 16 /min Leandra Seybold - External Body height 2023-10-21 18:58:00 175.3 cm Lindsay ey Seybold - External Body weight 2023-10-21 18:58:00 115.032 kg Lindsay ey Seybold - External BMI 2023-10-21 18:58:00 37.45 kg/m2 Lindsay ey Seybold - External Systolic blood pressure 2023-10-07 19:48:00 100 mm[Hg] Leandra Seybo ld - External Diastolic blood pressure 2023-10-07 19:48:00 78 mm[Hg] Leandra Seybo ld - External Heart rate 2023-10-07 19:48:00 96 /min Kelse y Seybold - External Body temperature 2023-10-07 19:48:00 35.94 Bernadette Leandra Seybold - External Respiratory rate 2023-10-07 19:48:00 15 /min Leandra Seybold - External Body height 2023-10-07 19:48:00 175.3 cm Lindsay ey Seybold - External Body weight 2023-10-07 19:48:00 113.581 kg Lindsay ey Seybold - External BMI 2023-10-07 19:48:00 36.98 kg/m2 Lindsay ey Seybold - External Systolic blood pressure 2023-10-01 19:00:00 100 mm[Hg] Leandra Seybo ld - External Diastolic blood pressure 2023-10-01 19:00:00 70 mm[Hg] Leandra Seybo ld - External Heart rate 2023-10-01 19:00:00 93 /min Kelse y Seybold - External Body temperature 2023-10-01 19:00:00 36.94 Bernadette Leandra Seybold - External Respiratory rate 2023-10-01 19:00:00 18 /min Leandra Seybold - External Body height 2023-10-01 19:00:00 175.3 cm Lindsay ey Seybold - External Body weight 2023-10-01 19:00:00 113.127 kg Lindsay ey Seybold - External BMI 2023-10-01 19:00:00 36.83 kg/m2 Lindsay ey Seybold - External Systolic blood pressure 2023-09-16 14:10:00 101 mm[Hg] Leandra Seybo ld - External Diastolic blood pressure 2023-09-16 14:10:00 81 mm[Hg] Leandra Seybo ld - External Heart rate 2023-09-16 14:10:00 102 /min Kelse y Seybold - External Body height 2023-09-16 14:10:00 175.3 cm Lindsay ey Seybold - External Body weight 2023-09-16 14:10:00 113.399 kg Lindsay ey Seybold - External BMI 2023-09-16 14:10:00 36.92 kg/m2 Lindsay ey Seybold - External Systolic blood pressure 2023-08-14 18:26:00 102 mm[Hg] Leandra Seybo ld - External Diastolic blood pressure 2023-08-14 18:26:00 64 mm[Hg] Leandra Seybo ld - External Heart rate 2023-08-14 18:26:00 100 /min Kelse y Seybold - External Body temperature 2023-08-14 18:26:00 36.72 Bernadette Leandra Seybold - External Respiratory rate 2023-08-14 18:26:00 18 /min Leandra Seybold - External Body height 2023-08-14 18:26:00 175.3 cm Lindsay ey Seybold - External Body weight 2023-08-14 18:26:00 111.585 kg Lindsay ey Seybold - External BMI 2023-08-14 18:26:00 36.33 kg/m2 Lindsay ey Seybold - External Oxygen saturation in Arterial blood by Pulse oximetry 2023-08-14 18:26:00 97 /min Leandra Seybo ld - External Systolic blood pressure 2023-07-14 19:36:00 98 mm[Hg] Leandra Seybo ld - External Diastolic blood pressure 2023-07-14 19:36:00 60 mm[Hg] Leandra Seybo ld - External Heart rate 2023-07-14 19:36:00 102 /min Kelse y Seybold - External Body temperature 2023-07-14 19:36:00 36.61 Bernadette Leandra Seybold - External Respiratory rate 2023-07-14 19:36:00 18 /min Leandra Seybold - External Body height 2023-07-14 19:36:00 175.3 cm Lindsay ey Seybold - External Body weight 2023-07-14 19:36:00 111.755 kg Lindsay ey Seybold - External BMI 2023-07-14 19:36:00 36.38 kg/m2 Lindsay ey Seybold - External Oxygen saturation in Arterial blood by Pulse oximetry 2023-07-14 19:36:00 98 /min Leandra Maryybo ld - External Systolic blood pressure 2022-09-24 14:25:00 109 mm[Hg] [...] External Body weight 2022-08-26 16:02:00 105.688 kg Lindsay ey Seybold - External BMI 2022-08-26 16:02:00 34.41 kg/m2 Lindsay ey Seybold - External Oxygen saturation in Arterial blood by Pulse oximetry 2022-08-26 16:02:00 96 /min Leandra Seybo ld - External Systolic blood pressure 2022-08-07 14:23:00 108 mm[Hg] Leandra Seybo ld - External Diastolic blood pressure 2022-08-07 14:23:00 76 mm[Hg] Leandra Seybo ld - External Heart rate 2022-08-07 14:23:00 117 /min Carol y Seybold - External Body temperature 2022-08-07 14:23:00 36.39 Bernadette Leandra Maryybold - External Body height 2022-08-07 14:23:00 175.3 cm Lindsay ey Seybold - External Body weight 2022-08-07 14:23:00 104.327 kg Lindsay ey Seybold - External BMI 2022-08-07 14:23:00 33.97 kg/m2 Lindsay ey Seybold - External Heart rate 2022-01-11 14:30:00 76 /min [facility] Oxygen saturation in Arterial blood by Pulse oximetry 2022-01-11 14:30:00 98 /min [facility] Systolic blood pressure 2022-01-11 14:00:00 119 mm[Hg] [facility] Diastolic blood pressure 2022-01-11 14:00:00 88 mm[Hg] [facility] Respiratory rate 2022-01-11 14:00:00 16 /min [facility] Body temperature 2022-01-11 11:44:00 37.33 Bernadette [facility] Body height 2022-01-11 11:44:00 175.3 cm [facility] Body weight 2022-01-11 11:44:00 102.513 kg [facility] BMI 2022-01-11 11:44:00 33.37 kg/m2 [facility] Body temperature 2021-07-04 18:47:34 37.78 Bernadette [facility] Heart rate 2021-07-04 18:24:00 112 /min [facility] Oxygen saturation in Arterial blood by Pulse oximetry 2021-07-04 18:24:00 96 /min [facility] Systolic blood pressure 2021-07-04 16:51:00 132 mm[Hg] [facility] Diastolic blood pressure 2021-07-04 16:51:00 77 mm[Hg] [facility] Respiratory rate 2021-07-04 16:51:00 18 /min [facility] Body weight 2021-07-04 16:51:00 100.699 kg [facility] BMI 2021-07-04 16:51:00 32.77 kg/m2 [facility] Oxygen saturation in Arterial blood by Pulse oximetry 2021-06-23 23:42:00 97 /min [facility] Systolic blood pressure 2021-06-23 23:42:00 127 mm[Hg] [facility] Diastolic blood pressure 2021-06-23 23:42:00 76 mm[Hg] [facility] Heart rate 2021-06-23 23:42:00 83 /min [facility] Body temperature 2021-06-23 23:42:00 35.39 Bernadette [facility] Respiratory rate 2021-06-23 23:42:00 18 /min [facility] Body height 2021-06-23 14:08:00 175.3 cm [facility] Body weight 2021-06-23 14:08:00 100.699 kg [facility] BMI 2021-06-23 14:08:00 32.77 kg/m2 [facility] BP Systolic 2021-07-04 10:21:00 BP Diastolic [...] TISSUE NECK W CONTRAST 2022-01-11 13:06:31 Singer [facility] LACTIC ACID WHOLE BLOOD 2022-01-11 12:28:00 Taryn Samaniego [facility] COMP. METABOLIC PANEL (36664) 2022-01-11 12:27:00 Singer [facility] CBC WITH DIFF 2022-01-11 12:27:00 Singer [facility] CONSENT/REFUSAL FOR DIAGNOSIS AND TREATMENT 2022-01-11 12:22:15 Doctor Unassigned, [facility] RAPID INFLUENZA A/B 2021-07-04 18:18:00 Zoila Mcnulty [facility] COMP. METABOLIC PANEL (15037) 2021-07-04 17:01:00 Singer [facility] CBC WITH DIFF 2021-07-04 17:01:00 Singer [facility] URINALYSIS 2021-07-04 17:01:00 Singer [facility] LACTIC ACID WHOLE BLOOD 2021-07-04 17:01:00 , Taryn [facility] COVID-19 (ID NOW RAPID TESTING) 2021-07-04 17:01:00 Singer [facility] NOTICE OF PRIVACY PRACTICES 2021-07-04 16:42:56 Doctor Unassigned, [facility] MAGNESIUM 2021-06-23 07:47:00 Dostal, [facility] C-REACTIVE PROTEIN 2021-06-23 07:47:00 Dostal, [facility] BASIC METABOLIC PANEL (NA, K, CL, CO2, GLUCOSE, BUN, CREATININE, CA) 2021-06-23 07:47:00 Dostal, [facility] LIPID PANEL (67802)(TOTAL CHOLESTEROL, TRIGLYCERIDES, HDL) 2021-06-23 07:47:00 Dostal, [facility] SEDIMENTATION RATE 2021-06-23 07:47:00 Dostal, [facility] CBC WITH DIFF 2021-06-23 07:47:00 Walter Cottrell [facility] CT HEAD WO CONTRAST 2021-06-22 21:58:29 Dostal, [facility] MAGNESIUM 2021-06-22 18:37:00 Dostal, [facility] BASIC METABOLIC PANEL (NA, K, CL, CO2, GLUCOSE, BUN, CREATININE, CA) 2021-06-22 18:37:00 Dostal, [facility] CBC WITH DIFF 2021-06-22 18:37:00 Dostal, [facility] US RETROPERITONEAL LIMITED 2021-06-21 21:26:13 Dostal, [facility] VITAMIN B12, LEVEL 2021-06-21 11:08:00 Jaz [facility] FOLATE 2021-06-21 11:08:00 Jaz [facility] C-REACTIVE PROTEIN 2021-06-21 11:08:00 Dostal, [facility] HIV 1/2 AG-AB WITH REFLEX 2021-06-21 11:08:00 Dostal, [facility] CRITICAL CARE 2021-06-21 09:54:09 Olga Camejo [facility] CT ABDOMEN PELVIS WO CONTRAST 2021-06-21 04:49:43 Bashir Olga [facility] XR CHEST 1 VW 2021-06-21 04:28:00 Olga Camejo [facility] URINALYSIS 2021-06-21 04:08:00 Olga Camejo [facility] URINE CULTURE 2021-06-21 04:08:00 Olga Camejo [facility] COVID-19 (ID NOW RAPID TESTING) 2021-06-21 04:08:00 Olga Camejo [facility] LAB ONLY COVID INTERPRETATION 2021-06-21 04:08:00 Olga Camejo [facility] CREATINE KINASE 2021-06-21 04:01:00 [facility] 2021-06-21 04:01:00 Freeman Qiu os [facility] BLOOD CULTURE SCREEN 2021-06-21 03:58:00 Laquita Camejo [facility] TROPONIN I 2021-06-21 03:58:00 Olga [facility]amejo [facility] COMP. METABOLIC PANEL (50514) 2021-06-21 03:58:00 Olga Camejo [facility] CBC WITH DIFF 2021-06-21 03:58:00 Olga Camejo [facility] PROTHROMBIN TIME / INR 2021-06-21 03:58:00 Ten Camejo [facility] ACTIVATED PARTIAL THRMPLAS ALANIS 2021-06-21 03:58:00 Olga Camejo [facility] N-TERMINAL PRO-BNP 2021-06-21 03:58:00 Olga Camejo [facility] LACTIC ACID WHOLE BLOOD 2021-06-21 03:57:00 Do magdalena Camejo [facility] HB ECG ROUTINE & RHYTHM STRIP 2021-06-21 03:07:42 Olga Camejo [facility] EMERGENCY SERVICES AGREEMENTS AND AUTHORIZATIONS 2021-06-20 06:01:00 Doctor Unassigned, [facility] Plan of Care Planned Activity Planned Date Details Comments Source Goal Plan of Care Note [code = 76536-9] Goal Plan of Care Note [code = 72785-9] Goal Plan of Care Note [code = 21386-3] Goal Plan of Care Note [code = 48569-5] Goal Plan of Care Note [code = 99999-9] Goal Plan of Care Note [code = 83196-4] Goal Plan of Care Note [code = 72364-9] Goal Plan of Care Note [code = 69367-8] Encounters Start Date/Time End Date/Time Encounter Type Admission Type Attending [facility] Care Facility Care Department Encounter ID Source 2023-12-31 15:00:00 2023-12-31 15:00:00 Outpatient CLEMENT SUAREZ LEANDRA BEARD [id number] [facility] 2023-12-24 09:00:00 2023-12-24 09:00:00 Outpatient MINI ZARAGOZA [facility] [id number] [facility]23-[facility]-23 07:40:00 2023-12-23 07:40:00 Outpatient ZARAGOZAMINI FERNANDES [facility] [id number] [facility] 2023-12-18 00:00:00 2023-12-18 00:00:00 Outpatient SHAISTA COLINDRES [id number] [facility] 2023-12-18 00:00:00 2023-12-18 00:00:00 Outpatient CECIL BARNEY [id number] [facility] 2023-12-09 00:00:00 2023-12-09 00:00:00 Outpatient MD LEANDRA MOLINA [id number] [facility] 2023-12-09 00:00:00 2023-12-09 00:00:00 Outpatient CUCO ANDREWS [id number] [facility] 2023-12-09 00:00:00 2023-12-09 00:00:00 Outpatient RAMOS CAMACHO [id number] [facility] 2023-11-20 00:00:00 2023-11-20 00:00:00 Outpatient RAMOS CAMACHO [id number] [facility] 2023-11-20 00:00:00 2023-11-20 00:00:00 Outpatient SHAISTA COLINDRES [id number] [facility] 2023-11-17 15:00:00 2023-11-17 15:00:00 Outpatient LEANDRA BEARD [id number] [facility] 2023-11-12 00:00:00 2023-11-12 00:00:00 Outpatient COLINDRESSHAISTA [facility]DRA [facility]ARD [id number] [facility] 2023-10-30 15:00:00 2023-10-30 15:00:00 Outpatient LEANDRA BEARD [id number] Leandra ybraz 2023-10-29 00:00:00 2023-10-29 00:00:00 Outpatient SHAISTA COLINDRES [facility] [id number] [facility] 2023-10-28 00:00:00 2023-10-28 00:00:00 Outpatient RAMOS CAMACHO [id number] [facility] 2023-10-21 13:45:00 2023-10-21 13:45:00 Outpatient RAMOS CAMACHO [id number] [facility] 2023-10-17 12:30:00 2023-10-17 12:30:00 Outpatient [facility]ANDRA BE[facility] [id number] [facility] 2023-10-17 10:30:00 2023-10-17 10:30:00 Outpatient [facility]ANDRA BE[facility] [id number] [facility] 2023-10-12 12:45:00 2023-10-12 12:45:00 Outpatient BON MONTELONGO [id number] [facility] 2023-10-09 14:45:00 2023-10-09 14:45:00 Outpatient JENNIFER LENZ [id number] [facility] 2023-10-09 08:30:00 2023-10-09 08:30:00 Outpatient TROY TAN [id number] Leandra Seybold 2023-10-07 15:00:00 2023-10-07 15:00:00 Outpatient CECIL BARNEY [id number] Leandra Seybold 2023-10-01 14:40:00 2023-10-01 14:40:00 Outpatient JAXON BEARD [id number] Leandra Seybold 2023-10-01 13:45:00 2023-10-01 13:45:00 Outpatient PHIL GARCIA [id number] [facility] 2023-09-23 00:00:00 2023-09-23 00:00:00 Outpatient SHAISTA COLINDRES [facility] [id number] [facility] 2023-09-21 00:00:00 2023-09-21 00:00:00 Outpatient TROY HANEY [facility] [id number] [facility] 2023-09-16 15:10:00 2023-09-16 15:10:00 Outpatient JOSE PINO [facility] [id number] [facility] 2023-09-16 10:30:00 2023-09-16 10:30:00 Outpatient LAB53 [facility]DRA [facility] [id number] [facility] 2023-09-16 09:15:00 2023-09-16 09:15:00 Outpatient SHAISTA COLINDRES [facility] [id number] [facility] 2023-09-12 11:30:00 2023-09-12 11:30:00 Outpatient PANDA BARNEYTHIA [facility] [id number] [facility] 2023-09-11 13:10:00 2023-09-11 13:10:00 Outpatient JOSE PINO [facility] [id number] [facility] 2023-09-11 00:00:00 2023-09-11 00:00:00 Outpatient ECTORCECIL [id number] [facility] 2023-08-14 14:35:00 2023-08-14 14:35:00 Outpatient LAB90 [facility]DRA BEARD [id number] [facility] 2023-08-14 13:30:00 2023-08-14 13:30:00 Outpatient ECTORCECIL [id number] Leandra Seybold 2023-08-05 00:00:00 2023-08-05 00:00:00 Outpatient ECTORCECIL [id number] Leandra Seybold 2023-07-14 13:30:00 2023-07-14 13:30:00 Outpatient ECTORCECIL [id number] [facility] 2023-06-30 00:00:00 2023-06-30 00:00:00 Outpatient ANA LUISA HEREDIA [facility] [id number] [facility] 2023-06-23 16:00:00 2023-06-23 16:00:00 Outpatient XIANGAGUSTO MASSEY LEANDRA [facility]ARD [id number] Leandra Seybold 2023-05-15 00:00:00 2023-05-15 00:00:00 Outpatient CUCO ANDREWS [id number] [facility] 2023-04-01 17:30:00 2023-04-01 17:30:00 Outpatient YANANA LUISA [facility] [id number] [facility] 2023-03-29 11:30:00 2023-03-29 11:30:00 Outpatient ANA M ALFREDOManuela BEARD [id number] [facility] 2023-03-29 09:30:00 2023-03-29 09:30:00 Outpatient RAMÓN AARONDUSTY BEARD [id number] [facility] 2023-03-29 00:00:00 2023-03-29 00:00:00 Outpatient SHAREE CAM [id number] [facility] 2023-01-22 00:00:00 2023-01-22 00:00:00 Outpatient JUSTIN HENLEY [id number] [facility] 2023-01-20 14:15:00 2023-01-20 14:15:00 Outpatient JUSTIN HENLEY [id number] Leandra Seybold 2023-01-19 00:00:00 2023-01-19 00:00:00 Outpatient CECIL GÓMEZ [id number] Leandra Seybold 2022-12-28 00:00:00 2022-12-28 00:00:00 Outpatient CUCO ANDREWS [id number] Leandra Seybold 2022-11-26 09:15:00 2022-11-26 09:15:00 Outpatient REBEKAH HERCULES [id number] [facility] 2022-11-02 00:00:00 2022-11-02 00:00:00 Outpatient CUCO ANDREWS [id number] [facility] 2022-09-24 10:00:00 2022-09-24 10:00:00 Outpatient LABShahriar LEANDRA BEARD [id number] [facility] 2022-09-24 09:15:00 2022-09-24 09:15:00 Outpatient REBEKAH HERCULES LEANDRA BEARD [id number] [facility] 2022-09-03 10:45:00 2022-09-03 10:45:00 Outpatient CUCO ANDREWS [id number] [facility] 2022-08-26 11:50:00 2022-08-26 11:50:00 Outpatient LABGeorge BEARD [id number] [facility] 2022-08-26 11:00:00 2022-08-26 11:00:00 Outpatient CUCO ANDREWS [id number] [facility] 2022-08-20 08:00:00 2022-08-20 08:00:00 Outpatient CUCO ANDREWS [id number] [facility] 2022-08-08 12:00:00 2022-08-08 12:00:[address] [facility] [id number] [address] [place] [address] 2022-08-08 00:00:00 2022-08-08 00:00:00 Outpatient CUCO ANDREWS [id number] [facility] 2022-08-08 00:00:00 2022-08-08 00:00:00 Outpatient DOUGLAS PRINCE [id number] [facility] 2022-08-08 00:00:00 2022-08-08 00:00:00 Outpatient LEANDRA BEARD [id number] [facility] 2022-08-07 10:10:00 2022-08-07 10:10:00 Outpatient LAB90 [facility]DR[facility] [id number] [facility] 2022-08-07 09:30:00 2022-08-07 09:30:00 Outpatient CUCO ANDREWS [id number] Leandra Jacob 2022-01-11 06:47:00 2022-01-11 10:01:00 Emergency X FRANCISCO SAMANIEGO [facility] ERT [id number] [facility] 2022-01-11 06:47:00 2022-01-11 10:01:00 Emergency Francisco Samaniego [facility] 1.2.840.114 350.1.13.10 4.2.7.2.686 [id number] [facility] 2021-11-15 00:00:00 2021-11-15 00:00:00 Outpatient Visit [id number] 2021-07-04 10:56:00 2021-07-04 13:43:00 Emergency X ZOILA MCNULTY [facility] ERT [id number] [facility] 2021-07-04 10:56:00 2021-07-04 13:43:00 Emergency Zoila Mcnulty S [facility] 1.2840.114 350.1.13.10 4.2.7.2.686 [id number] [facility] 2021-07-04 00:00:00 2021-07-04 00:00:00 Orders Only Doctor Unassigned, [facility] 1.0.114 350.1.13.10 4.2.7.2.686 [id number] [facility] 2021-06-26 00:00:00 2021-06-26 00:00:00 Patient Secure Msg Doctor Unassigned, [facility] 1.2840.114 350.1.13.10 4.2.7.2.686 [id number] [facility] 2021-06-25 00:00:00 2021-06-25 00:00:00 Transition of Care Claudine Gutierrez 1.2.840.114 350.1.13.10 4.2.7.2.686 [id number] [facility] 2021-06-20 21:02:00 2021-06-23 18:51:00 Hospital Encounter Olga Camejo, Gifty Ledbetter, Melania [facility] 1.2840.114 350.1.13.10 4.2.7.2.686 [id number] [facility] 2021-06-20 21:02:00 2021-06-23 18:51:00 [facility] [id number] [facility] Results Test Description Test Time Test Comments Results Result Co mments [facility] (53108[facility]2021-07-04 17:31:18* Test Item Value Reference Range Interpretation Comme nts NA (test code = 3169879900) 133 mmol/L 135-145 L K (test code = 9123213371) 4.9 mmol/L 3.5-5.0 CL (test code = 2731973289) 104 mmol/L 98-108 CO2 TOTAL (test code = 1463569394) 23 mmol/L 23-31 AGAP (test code = 9666098083) 2-16 BUN (test code = 3081690792) 13 mg/dL 7-23 GLUCOSE (test code = 0832847192) 124 mg/dL 70-110 H CREATININE (test code = 2637926054) 0.90 mg/dL 0.50-1.04 TOTAL BILI (test code = 7796830651) 0.7 mg/dL 0.1-1.1 CALCIUM (test code = 1443603655) 9.3 mg/dL 8.6-10.6 T PROTEIN (test code = 0260106037) 7.4 g/dL 6.3-8.2 ALBUMIN (test code = 0401423445) 4.3 g/dL 3.5-5.0 ALK PHOS (test code = 5973055378) 90 U/L 34-122 ALTv (test code = 1742-6) 68 U/L 5-35 H AST(SGOT) (test code = 7795925927) 79 U/L 13-40 H eGFR (test code = 4370405083) mL/min/1.73m2 BERLIN (test code = BERLIN) Association [...] imaging tests). Lab Interpretation (test code = 08743-6) [facility] with [id number] 17:16:16* Test Item Value Reference Range Interpretation Comme nts WBC (test code = 6690-2) See_Comment [Automated [employer] original products] The system which generated this result transmitted [...] 33.9 g/dL 31.6-35.1 RDW-SD (test code = 67124-6) 46.9 fL 39.0-49.9 RDW-CV (test code = 788-0) 13.1 % 12.0-15.5 PLT (test code = 777-3) See_Comment [Automated Astley Clarkea ge] The system which generated this result transmitted reference range: 166 - 358 10*3/?L. The reference range was not used to interpret this result as normal/abnormal. MPV (test code = 05195-4) 9.4 fL 9.5-12.9 L NRBC/100 WBC (test code = 0965996242) See_Comment [Automated Razz ssage] The system which generated this result transmitted reference range: 0.0 - 10.0 /100 WBCs. The reference range was not used to interpret this result as normal/abnormal. NRBC x10^3 (test code = 3016504698) <0.01 See_Comment [Automated Astley Clarkea ge] The system which generated this result transmitted reference range: 10*3/?L. The reference range was not used to interpret this result as normal/abnormal. GRAN MAT (NEUT) % (test code = 770-8) 80.1 % IMM GRAN % (test code = 6884931855) 0.30 % LYMPH % (test code = 736-9) 12.6 % MONO % (test code = 5905-5) 4.6 % EOS % (test code = 713-8) 2.1 % BASO % (test code = 706-2) 0.3 % GRAN MAT x10^3(ANC) (test code = 9053439754) 4.91 10*3/uL 1.88-7.09 IMM GRAN x10^3 (test code = 2467611175) <0.03 0.00-0.06 LYMPH x10^3 (test code = 731-0) 0.77 10*3/uL 1.32-3.29 L MONO x10^3 (test code = 742-7) 0.28 10*3/uL 0.33-0.92 L EOS x10^3 (test code = 711-2) 0.13 10*3/uL 0.03-0.39 BASO x10^3 (test code = 704-7) <0.03 0.01-0.07 Lab Interpretation (test code = 80516-3) [facility] [id number] 17:12:38* Test Item Value Reference Range Interpretation Comme nts LACTIC ACID (test code = 4891552366) 1.69 mmol/L 0.50-2.20 Lab Interpretation (test cod e = 42649-9) [facility] (54730)(TOTAL CHOLESTEROL, TRIGLYCERIDES, HDL)2021-06-23 21:51:16* Test Item Value Reference Range Interpretation Comme nts CHOL (test code = 6251368178) 149 mg/dL 120-200 HDL (test code = 3819649303) 20 mg/dL >50 L HDLC RATIO (test code = 4691787568) See_Comment H [Trippin In] The system which generated this result transmitted reference range: <=4.5. The reference range was not used to interpret this result as normal/abnormal. TRIG (test code = 8728233718) 137 mg/dL 30-170 LDL CHOL (test code = 52349-2) 102 mg/dL See_Comment [Trippin In] The system which generated this result transmitted reference range: <=160. The reference range was not used to interpret this result as normal/abnormal. VLDL (test code = 8059824142) 27 mg/dL 5-60 Lab Interpretation (test code = 99724-8) [facility] [id number] 17:54:55* Test Item Value Reference Range Interpretation Comme nts CRP (test code = 8038782307) 25.7 mg/dL <0.8 H Lab Interpretation (test cod e = 47386-2) [facility]normal [facility] HospitalSEDIMENTATION [id number] 08:35:00* Test Item Value Reference Range Interpretation Comme nts ESR (test code = 9373620191) See_Comment H [Automated messa ge] The system which generated this result transmitted reference range: 0 - 20 mm/HR. The reference range was not used to interpret this result as normal/abnormal. Lab Interpretation (test code = 04700-4) Abnormal [facility] METABOLIC PANEL (NA, K, CL, CO2, GLUCOSE, BUN, CREATININE, CA)2021-06-23 08:05:51* Test Item Value Reference Range Interpretation Comme nts NA (test code = 7930633215) 135 mmol/L 135-145 K (test code = 1030080142) 3.8 mmol/L 3.5-5.0 CL (test code = 2817262128) 104 mmol/L 98-108 CO2 TOTAL (test code = 0555651884) 28 mmol/L 23-31 AGAP (test code = 9482714713) 2-16 BUN (test code = 9332593198) 13 mg/dL 7-23 GLUCOSE (test code = 4054103348) 112 mg/dL 70-110 H CREATININE (test code = 6276227846) 0.73 mg/dL 0.50-1.04 CALCIUM (test code = 3520761693) 8.6 mg/dL 8.6-10.6 eGFR (test code = 7541710266) mL/min/1.73m2 BERLIN (test code = BERLIN) Association [...] imaging tests). Lab Interpretation (test code = 35116-7) [facility] 08:05:51* Test Item Value Reference Range Interpretation Comme nts MAGNESIUM (test code = 0841251437) 1.9 mg/dL 1.7-2.4 Lab Interpretation (test cod e = 77672-8) Normal [facility] WITH [id number] 07:55:06* Test Item Value Reference Range Interpretation Comme nts WBC (test code = 6690-2) See_Comment H [Automated Astley [employer]] The system which generated this result transmitted reference range: 4.30 - 11.10 10*3/?L. The reference range was not used to interpret this result as normal/abnormal. RBC (test code = 789-8) See_Comment L [Automated [employer]] The system which generated this result transmitted [...] 33.9 g/dL 31.6-35.1 RDW-SD (test code = 31240-0) 46.9 fL 39.0-49.9 RDW-CV (test code = 788-0) 13.1 % 12.0-15.5 PLT (test code = 777-3) See_Comment [Automated Astley Clarkea ge] The system which generated this result transmitted reference range: 166 - 358 10*3/?L. The reference range was not used to interpret this result as normal/abnormal. MPV (test code = 71058-0) 9.2 fL 9.5-12.9 L NRBC/100 WBC (test code = 1328481760) See_Comment [Automated Razz ssage] The system which generated this result transmitted reference range: 0.0 - 10.0 /100 WBCs. The reference range was not used to interpret this result as normal/abnormal. NRBC x10^3 (test code = 5917080778) <0.01 See_Comment [Automated Astley Clarkea ge] The system which generated this result transmitted reference range: 10*3/?L. The reference range was not used to interpret this result as normal/abnormal. GRAN MAT (NEUT) % (test code = 770-8) 63.1 % IMM GRAN % (test code = 8813813530) 0.50 % LYMPH % (test code = 736-9) 23.7 % MONO % (test code = 5905-5) 10.8 % EOS % (test code = 713-8) 1.5 % BASO % (test code = 706-2) 0.4 % GRAN MAT x10^3(ANC) (test code = 7514181160) 7.43 10*3/uL 1.88-7.09 H IMM GRAN x10^3 (test code = 1018904030) 0.06 10*3/uL 0.00-0.06 LYMPH x10^3 (test code = 731-0) 2.79 10*3/uL 1.32-3.29 MONO x10^3 (test code = 742-7) 1.27 10*3/uL 0.33-0.92 H EOS x10^3 (test code = 711-2) 0.18 10*3/uL 0.03-0.39 BASO x10^3 (test code = 704-7) 0.05 10*3/uL 0.01-0.07 Lab Interpretation (test code = 81043-2) Abnormal [facility] WITH [id number] 19:32:51* Test Item Value Reference Range Interpretation [...] 33.5 g/dL 31.6-35.1 RDW-SD (test code = 55316-9) 46.6 fL 39.0-49.9 RDW-CV (test code = 788-0) 12.9 % 12.0-15.5 PLT (test code = 777-3) See_Comment H [Automated messa ge] The system which generated this result transmitted reference range: 166 - 358 10*3/?L. The reference range was not used to interpret this result as normal/abnormal. MPV (test code = 88996-9) 9.4 fL 9.5-12.9 L NRBC/100 WBC (test code = 8290889802) See_Comment [Automated Razz ssage] The system which generated this result transmitted reference range: 0.0 - 10.0 /100 WBCs. The reference range was not used to interpret this result as normal/abnormal. NRBC x10^3 (test code = 1049783509) <0.01 See_Comment [Automated messa ge] The system which generated this result transmitted reference range: 10*3/?L. The reference range was not used to interpret this result as normal/abnormal. GRAN MAT (NEUT) % (test code = 770-8) 63.6 % IMM GRAN % (test code = 4648795667) 0.60 % LYMPH % (test code = 736-9) 23.0 % MONO % (test code = 5905-5) 11.7 % EOS % (test code = 713-8) 0.8 % BASO % (test code = 706-2) 0.3 % GRAN MAT x10^3(ANC) (test code = 2281987952) 8.94 10*3/uL 1.88-7.09 H IMM GRAN x10^3 (test code = 9829181474) 0.08 10*3/uL 0.00-0.06 H LYMPH x10^3 (test code = 731-0) 3.23 10*3/uL 1.32-3.29 MONO x10^3 (test code = 742-7) 1.64 10*3/uL 0.33-0.92 H EOS x10^3 (test code = 711-2) 0.11 10*3/uL 0.03-0.39 BASO x10^3 (test code = 704-7) 0.04 10*3/uL 0.01-0.07 Lab Interpretation (test code = 50259-9) Abnormal [facility] METABOLIC PANEL (NA, K, CL, CO2, GLUCOSE, BUN, CREATININE, CA)2021-06-22 19:20:43* Test Item Value Reference Range Interpretation Comme nts NA (test code = 6015935301) 139 mmol/L 135-145 K (test code = 3342438448) 4.0 mmol/L 3.5-5.0 CL (test code = 7024767925) 107 mmol/L 98-108 CO2 TOTAL (test code = 3192462835) 23 mmol/L 23-31 AGAP (test code = 5084383377) 2-16 BUN (test code = 8461530026) 11 mg/dL 7-23 GLUCOSE (test code = 1467282372) 100 mg/dL 70-110 CREATININE (test code = 0935366696) 0.75 mg/dL 0.50-1.04 CALCIUM (test code = 3330751683) 9.1 mg/dL 8.6-10.6 eGFR (test code = 7781593905) mL/min/1.73m2 BERLIN (test code = BERLIN) Association [...] or urine or abnormalities in imaging tests). [facility] 19:20:43* Test Item Value Reference Range Interpretation Comme nts MAGNESIUM (test code = 4317142860) 1.9 mg/dL 1.7-2.4 Lab Interpretation (test cod e = 43138-9) Normal [facility] [id number] 18:07:54* Test Item Value Reference Range Interpretation Comme nts CRP (test code = 6862531786) 25.8 mg/dL <0.8 H Lab Interpretation (test cod e = 50403-3) Abnormal [facility] HospitalCULTURE, [id number] 00:00:00* Test Item Value Reference Range Interpretation Comme nts CULTURE, URINE (test code = 14466) SPECIMEN NUMBER: [id number] HIV 1/2 AG-AB WITH [id number] 17:13:51* Test Item Value Reference Range Interpretation Comme nts HIV Semi-quantitative (test code = 43162-5) Negative Negative BERLIN (test code = BERLIN) Non-reactive for HIV-1 antigen and HIV-1/HIV-2 antibodies. ?No laboratory evidence of HIV infection. ?Repeat in 2-4 weeks if acute HIV infection is suspected. [facility]NCY TEST, [id number] 15:02:02* Test Item Value Reference Range Interpretation Comme nts PREG SERUM (test code = 0362517479) Negative BERLIN (test code = BERLIN) Less than 10 IU/L. ?If low titer or ectopic is suspected, resubmit specimen in 48-72 hours. [facility] HospitalFOLATE2022-02-10 13:21:45* Test Item Value Reference Range Interpretation Comme nts FOLATE SER (test code = 9609098103) 8.2 ng/mL 3.0-20.0 Lab Interpretation (test cod e = 38548-7) Normal [facility] HospitalVITAMIN B12, [id number] 12:58:44* Test Item Value Reference Range Interpretation Comme nts VIT B12 (test code = 5844343666) 213 pg/mL 240-930 L BERLIN (test code = BERLIN) Biotin has been reported to cause a positive bias, interpret results relative to patient's use of biotin. Lab Interpretation (test code = 01521-7) Abnormal [facility] HospitalCBC WITH [id number] 05:04:07* Test Item Value Reference Range Interpretation [...] 34.1 g/dL 31.6-35.1 RDW-SD (test code = 93958-9) 46.5 fL 39.0-49.9 RDW-CV (test code = 788-0) 12.9 % 12.0-15.5 PLT (test code = 777-3) See_Comment H [Automated message] The system which generated this result transmitted reference range: 166 - 358 10*3/?L. The reference range was not used to interpret this result as normal/abnormal. MPV (test code = 13740-4) 9.5 fL 9.5-12.9 NRBC/100 WBC (test code = 6023656859) See_Comment [Automated message] The system which generated this result transmitted reference range: 0.0 - 10.0 /100 WBCs. The reference range was not used to interpret this result as normal/abnormal. NRBC x10^3 (test code = 0124921065) <0.01 See_Comment [Automated message] The system which generated this result transmitted reference range: 10*3/?L. The reference range was not used to interpret this result as normal/abnormal. GRAN MAT (NEUT) % (test code = 770-8) 75.6 % IMM GRAN % (test code = 5219023357) 1.10 % LYMPH % (test code = 736-9) 12.4 % MONO % (test code = 5905-5) 10.4 % EOS % (test code = 713-8) 0.1 % BASO % (test code = 706-2) 0.4 % GRAN MAT x10^3(ANC) (test code = 8527843592) 18.55 10*3/uL 1.88-7.09 H IMM GRAN x10^3 (test code = 9156265870) 0.27 10*3/uL 0.00-0.06 H LYMPH x10^3 (test code = 731-0) 3.04 10*3/uL 1.32-3.29 MONO x10^3 (test code = 742-7) 2.55 10*3/uL 0.33-0.92 H EOS x10^3 (test code = 711-2) <0.03 0.03-0.39 L BASO x10^3 (test code = 704-7) 0.09 10*3/uL 0.01-0.07 H Lab Interpretation (test code = 57075-8) Abnormal [facility] HospitalTROPONIN [id number] 04:44:20* Test Item Value Reference Range Interpretation Comments TROPONIN I (test code = 3817484355) 0.004 ng/mL See_Comment [Automated message] The system [...] of biotin. Lab Interpretation (test code = 44767-6) Normal [facility] HospitalN-TERMINAL [id number] 04:41:23* Test Item Value Reference Range Interpretation Comme nts NT-proBNP (test code = 7428164687) 101 pg/mL See_Comment [Automated message] The system which generated this result transmitted reference range: <=125. The reference range was not used to interpret this result as normal/abnormal. BERLIN (test code = BERLIN) Biotin has been reported to cause a negative bias, interpret results relative to patient's use of biotin. Lab Interpretation (test code = 23626-5) Normal [facility] HospitalACTIVATED PARTIAL THRMPLAS [id number] 04:40:03* Test Item Value Reference Range Interpretation Comme nts APTT Patient (test code = 3173-2) See_Comment [Automated message] The system which generated this result transmitted reference range: 23 - 38 Seconds. The reference range was not used to interpret this result as normal/abnormal. BERLIN (test code = BERLIN) The [facility] patient population mean normal value for aPTT is 30 seconds. Lab Interpretation (test code = 54974-1) Normal [facility] HospitalCREATINE [id number] 04:38:17* Test Item Value Reference Range Interpretation Comme nts CK (test code = 0318698165) <20 33-194 L Lab Interpretation (test cod e = 78608-3) Abnormal [facility] HospitalPROTHROMBIN TIME / [id number] 04:38:02* Test Item Value Reference Range Interpretation Comme [facility] PROTIME PATIENT (test code = 5964-2) See_Comment [Automated messa ge] The system which generated this result transmitted reference range: 12.0 - 14.7 Seconds. The reference range was not used to interpret this result as normal/abnormal. INR (test code = 6301-6) Normal INR <1.1; Warfarin Therapeutic range 2.0 to 3.0 or 2.5 to 3.5, depending upon the indications. Lab Interpretation (test code = 90467-8) Normal [facility] HospitalCOMP. METABOLIC PANEL ([id number])2021-06-21 04:34:40* Test Item Value Reference Range Interpretation Comme nts NA (test code = 7564911712) 134 mmol/L 135-145 L K (test code = 1502804480) 4.3 mmol/L 3.5-5.0 CL (test code = 6349163839) 100 mmol/L 98-108 CO2 TOTAL (test code = 8462174206) 26 mmol/L 23-31 AGAP (test code = 8052888059) 2-16 BUN (test code = 9336550050) 16 mg/dL 7-23 GLUCOSE (test code = 9362942367) 112 mg/dL 70-110 H CREATININE (test code = 7910736467) 0.72 mg/dL 0.50-1.04 TOTAL BILI (test code = 4764725680) 1.1 mg/dL 0.1-1.1 CALCIUM (test code = 1076514683) 9.2 mg/dL 8.6-10.6 T PROTEIN (test code = 2411290414) 6.9 g/dL 6.3-8.2 ALBUMIN (test code = 1320168494) 4.1 g/dL 3.5-5.0 ALK PHOS (test code = 9618479925) 104 U/L 34-122 ALTv (test code = 1742-6) 21 U/L 5-35 AST(SGOT) (test code = 2367767759) 28 U/L 13-40 eGFR (test code = 6578200711) mL/min/1.73m2 BERLIN (test code = BERLIN) Association [...] imaging tests). Lab Interpretation (test code = 99546-8) Abnormal [facility] Notes Date/Time Note Provider Source 2023-10-21 13:59:12 Chief Complaint Patient presents with Consultation Endometriosis CRISTOBAL Collazo [facility] 2023-10-07 14:51:15 Chief Complaint Patient presents with Weight Problem Discuss weight management Tamiko Guerra MA II [facility] 2023-09-16 09:09:29 Chief Complaint Patient presents with New Patient New rheumatology establish, previous Lupus dx 20 years ago. Pt c/o of chronic fatigue, brain fog and pain. Pt would like to consult if she can get back on her previous medications and injections. Pt in a current flare up, lupus rash present all over upper trunk. Pamela Raza CMA I [facility] 2023-08-14 13:28:51 Chief Complaint Patient presents with Dizziness Dizziness and nausea when she switches positions. Sister was just Dx with POTS. Zaira Alvarez LVN [facility] 2023-07-14 13:43:05 Chief Complaint Patient presents with Lupus Lupus flare up. Nausea, vomiting and headaches Zaira Alvarez LVN [facility]"
[2024-01-13 17:41] LABS: Absolute Basophils 0.1 K/uL (0-0.5); Absolute Eosinophils 0.1 K/uL (0-0.5); Absolute Lymphocytes (CBC) 3.1 K/uL (0.7-4.9); Absolute Monocytes 0.7 K/uL (0.1-1.3); Absolute Neutrophil 5.5 K/uL (1.8-8.0); Basophils % 0.7 % (0-1.3); Eosinophils % 1.3 % (0-4.4); Hematocrit 45.2 % (36.0-45.0); Hemoglobin 15.3 g/dL (12.0-15.0); Lymphocytes % 32.6 % (15.3-44.8); MCH 33.5 pg (27.0-35.0); MCHC 33.9 g/dL (32.0-36.0); MPV 8.8 fL (7.6-11.3); Monocytes % 7.5 % (3.3-12.3); Neutrophils % 57.9 % (41.7-73.7); Platelets 328 thou/uL (152-406); RBC Red Blood Cell Count 4.57 M/uL (3.86-4.86)
[2024-01-13] MEDS ORDERED: NA CHLORIDE 0.9% 1,000 ML ONE (17:55)
[2024-01-13] MEDS ORDERED: ONDANSETRON 4 MG/2 ML VIAL ONE (17:55)
[2024-01-13 17:57] LABS: Albumin 3.8 g/dL (3.4-5.0); Anion Gap 12.7 mEq/L (5.0-15.0); Bilirubin Total 0.4 mg/dL (0.2-1.0); Globulin 3.8 g/dL (2.3-3.5); Potassium 3.7 mEq/L (3.5-5.1); Protein, Total 7.6 g/dL (6.4-8.2)
--- NOTE | 2024-01-13 17:59 | RAD REPORT ---
EXAM DESCRIPTION: RAD - Chest Single View - 01/13/2024 5:53 pm CLINICAL HISTORY: DYSPNEA Chest pain. COMPARISON: <Comparisons> FINDINGS: Portable technique limits examination quality. The lungs are grossly clear. The heart is normal in size. No displaced fractures. IMPRESSION: No acute intrathoracic process suspected.
[2024-01-13 18:00] LABS: SARS-CoV-2 Antigen CONTROL BLUE LINE VIS/BG OK; SARS-CoV-2 Antigen Rapid Res Negative (Negative)
--- NOTE | 2024-01-13 18:49 | RAD REPORT ---
EXAM DESCRIPTION: CTAbdomen Pelvis W Contrast - 01/13/2024 6:34 pm CLINICAL HISTORY: Abdominal pain. ABD PAIN COMPARISON: <Comparisons> TECHNIQUE: CT imaging of the abdomen and pelvis was performed with 100 ml non-ionic IV contrast. All CT scans are performed using dose optimization technique as appropriate and may include automated exposure control or mA/KV adjustment according to patient size. FINDINGS: The lung bases are clear. The liver, spleen, pancreas, adrenal glands and kidneys are within normal limits. No bowel obstruction, free air, free fluid or abscess. The appendix is not identified as a discrete structure, however, no secondary findings of appendicitis are identified. No evidence of significan t lymphadenopathy. No suspicious bony findings. IMPRESSION: No acute intra-abdominal or pelvic finding.
[2024-01-13] MEDS ORDERED: MAGNESIUM CITRATE 300 ML BOT ONE (18:55)
[2024-01-13 19:12] LABS: Specific Gravity 1.008 (1.005-1.030); Urine Bacteria <20 /HPF (<20); Urine Bilirubin NEGATIVE (Negative); Urine Blood Negative (Negative); Urine Clarity Extremely Turbid (Clear); Urine Color Colorless (Yellow); Urine Crystals Unidentified Few /HPF (None Seen); Urine Culture Reflex Order REFLEXED; Urine Glucose NEGATIVE (Negative); Urine Ketones 2+ (Negative); Urine Microscopic Reflex YN ORDER UMIC; Urine Mucus Slight /HPF (None Seen); Urine Nitrite NEGATIVE (Negative); Urine Protein NEGATIVE (Negative); Urine Urobilinogen Normal (Normal); Urine Yeast (Budding) Occasional /HPF (None Seen)
--- NOTE | 2024-01-13 19:25 | ER ---
[facility]: Carmella Garcia Age: 43 yrs Sex: Female : 1980 Arrival Date: 01/13/2024 Time: 16:56 Bed 5 Private MD: Diagnosis: UTI/ Urinary tract infection, site not specified;Constipation;Local infection of the skin and subcutaneous tissue, unspecified Presentation: 01/12 17:06 Chief complaint: Patient states: FEELS LIKE CANT BREATH. FRIDAY STARTED WITH FEVER, db SOB, HEART RACING. STATES TOOK 500 MG TYLENOL AT 1500. Coronavirus screen: Client denies travel out of the [place] in the last 14 days. At this time, the client does not indicate any symptoms associated with coronavirus-19. Ebola Screen: Patient negative for fever greater than or equal to 101.5 degrees Fahrenheit, and additional compatible Ebola Virus Disease symptoms Patient denies exposure to infectious person. Patient denies travel to an Ebola-affected area in the 21 days before illness onset. No symptoms or risks identified at this time. Initial Sepsis Screen: Does the patient meet any 2 criteria? No. Patient's initial sepsis screen is negative. Does the patient have a suspected source of infection? No. Patient's initial sepsis screen is negative. Risk Assessment: Do you want to hurt yourself or someone else? Patient reports no desire to harm self or others. Onset of symptoms was January 13, 2024. 17:06 Method Of Arrival: Ambulatory db 17:06 Acuity: SUSHANT 3 db Triage Assessment: 17:08 General: Appears in no apparent distress. comfortable, Behavior is cooperative, db anxious. Pain: Complains of pain in chest. Neuro: Level of Consciousness is awake, alert, obeys commands, Oriented to person, place, time, situation. Respiratory: Airway is patent Respiratory effort is even, unlabored, Respiratory pattern is regular, symmetrical. GI: Abdomen is. 17:09 GI: Reports constipation. 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 - Infectious Disease History:: Denies. - Social history:: Smoking status: Patient reports the use of cigarette tobacco products, smokes one-half pack cigarettes per day. Screenin:35 [facility] ED Fall Risk Assessment (Adult) History of falling in the last 3 months, mb9 including since admission No falls in past 3 months (0 pts) Confusion or Disorientation No (0 pts) Intoxicated or Sedated No (0 pts) Impaired Gait No (0 pts) Mobility Assist Device Used No (0 pt) Altered Elimination No (0 pt) Score/Fall Risk Level 0 - 2 = Low Risk Oriented to surroundings, Maintained a safe environment, Educated pt \T\ family on fall prevention, incl call for assistance when getting out of bed. Abuse screen: Denies threats or abuse. Nutritional screening: No deficits noted. Tuberculosis screening: No symptoms or risk factors identified. Assessment: 17:34 General: Appears in no apparent distress. Behavior is calm, cooperative. Pain: mb9 Complains of pain in abdomen Pain does not radiate. Pain currently is 8 out of 10 on a pain scale. Quality of pain is described as throbbing, Pain began suddenly, Is continuous. Neuro: Harris Agitation-Sedation Scale (RASS): 0 - Alert and Calm Level of Consciousness is awake, alert, obeys commands, Oriented to person, place, time, situation, Appropriate for age. Neuro: Reports dizziness. Cardiovascular: Heart tones S1 S2 present Patient's skin is warm and dry. Respiratory: Airway is patent Respiratory effort is even, unlabored, Respiratory pattern is regular, symmetrical. GI: Abdomen is round non-distended, Bowel sounds present X 4 quads. Abd is soft and non tender X 4 quads. : No signs and/or symptoms were reported regarding the genitourinary system. EENT: No signs and/or symptoms were reported regarding the EENT system. Derm: Skin is pink, warm \T\ dry. Musculoskeletal: Range of motion: intact in all extremities. 18:43 Reassessment: No changes from previously documented assessment. Patient and/or family mb9 updated on plan of care and expected duration. Pain level reassessed. Patient is alert, oriented x 3, equal unlabored respirations, skin warm/dry/pink. 19:22 Reassessment: Patient appears in no apparent distress at this time. Patient and/or bm8 family updated on plan of care and expected duration. Pain level reassessed. Patient is alert, oriented x 3, equal unlabored respirations, skin warm/dry/pink. Patient denies pain at this time. Patient states feeling better. Patient states symptoms have improved. Vital Signs: 17:06 BP 140 / 89; Pulse 92; Resp 18; Temp 98.5(O); Pulse Ox 100% on R/A; Height 5 ft. 9 in. ;db 19:22 BP 114 / 62; Pulse 71; Resp 18; Temp 98.5; Pulse Ox 97% ; Pain 0/10; bm8 19:22 Pain Scale: Adult bm8 Shanell Coma Score: 19:22 Eye Response: spontaneous(4). Motor Response: obeys commands(6). Verbal Response: bm8 oriented(5). Total: 15. ED Course: 17:00 Patient arrived in ED. im 17:01 Angel[facility] Kincaid [facility]-C [facility]. kb 17:01 Enrique Sigala MD is Attending Physician. kb 17:08 Triage completed. db 17:09 Arm band placed on Patient placed in an exam room. db 17:12 Sharlene Storm, BALTAZAR is Primary Nurse. mb9 17:34 Initial lab(s) drawn, by me, sent to lab. COVID swab sent to lab. Flu and/or RSV swab mb9 sent to lab. Inserted Accessed peripheral vein via ultrasound, utilizing dynamic ultrasound technique Clean \T\ dry. Dressing intact. Good blood return. Flushes easily. 20 g right AC. 17:35 Placed in gown. Bed in low position. Call light in reach. Side rails up X 1. Provided mb9 Education on: press call light if needing anything. Client placed on continuous cardiac and pulse oximetry monitoring. NIBP monitoring applied. lead coater on. 17:36 No provider procedures requiring assistance completed. mb9 17:36 SARS-COV-2 Antigen Rapid Sent. mb9 17:36 Flu Sent. mb9 17:36 CMP Sent. mb9 17:36 CBC with Diff Sent. mb9 17:55 Chest Single View XRAY In Process Unspecified. EDMS 18:35 CT Abd/Pelvis - IV Contrast Only In Process Unspecified. EDMS 19:22 IV discontinued, intact, bleeding controlled, No redness/swelling at site. Pressure bm8 dressing applied. Patient maintains SpO2 saturation greater than 95% on room air. Administered Medications: 17:57 Drug: NS 0.9% IV 1000 ml IV at 1000 ml once Route: IV; Rate: 1000 ml; Site: right mb9 antecubital; 18:54 Follow up: Response: No adverse reaction; IV Status: Completed infusion mb9 17:59 Drug: Ondansetron IVP 4 mg IVP once; over 2 minutes Route: IVP; Site: right antecubital;mb9 18:54 Follow up: Response: No adverse reaction mb9 18:57 Drug: Magnesium Citrate PO Liquid 300 ml PO once Route: PO; mb9 19:16 Follow up: Response: No adverse reaction bm8 Medication: 17:35 VIS not applicable for this client. mb9 Outcome: 19:25 Discharge ordered by . kb 19:34 Discharged to home ambulatory, bm8 19:34 Condition: stable 19:34 Discharge instructions given to patient, family, Instructed on discharge instructions, follow up and referral plans. no drinking with medication, no driving heavy equipment, medication usage, safety practices, Demonstrated understanding of instructions, follow-up care, medications, Prescriptions given X 1, 19:35 Patient left the ED. bm8 Signatures: Dispatcher [employer] EDMS Angelika Kincaid, RAFAEL-C REHEATER HELPER-Michelle Lopez, RN RN Sharlene Mills RN RN mb9 Laney Larson Brad RN RN bm8
--- NOTE | 2024-01-13 19:25 | EDPHYS ---
Physician Documentation [facility] Name: Carmella Garcia Age: 43 yrs Sex: Female : 1980 Arrival Date: 01/13/2024 Time: 16:56 Bed 5 Private MD: ED Physician Enrique Sigala HPI: 01/12 20:17 This 43 yrs old Female presents to ER via Ambulatory with complaints of Constipation, kb Fever, Palpitations. 20:18 Pt is a 43 year old female who presents for shortness of breath, palpitations, fever, kb chills, constipation, urinary frequency and sores on face, arm and leg that started 4-5 days ago. Denies nausea, vomiting. . 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 - Infectious Disease History:: Denies. - Social history:: Smoking status: Patient reports the use of cigarette tobacco products, smokes one-half pack cigarettes per day. ROS: 19:14 Constitutional: As per HPI kb Exam: 19:14 Constitutional: This is a well developed, well nourished patient who is awake, alert, kb and in no acute distress. Head/Face: Normocephalic, atraumatic. ENT: Moist Mucous membranes Cardiovascular: Regular rate Respiratory: Respirations even and unlabored. No increased work of breathing. Talking in full sentences Back: No spinal tenderness. No costovertebral tenderness. Full range of motion. MS/ Extremity: Pulses equal, no cyanosis. Neurovascular intact. Full, normal range of motion. Neuro: Awake and alert, GCS 15, oriented to person, place, time, and situation. Moves all extremities. Normal gait. 19:14 Abdomen/GI: Inspection: abdomen appears normal, Bowel sounds: normal, Palpation: soft, in all quadrants, mild abdominal tenderness, in all quadrants, worse on the left side, 19:14 Skin: small sores to right arm, right leg and left side of chin. Vital Signs: 17:06 BP 140 / 89; Pulse 92; Resp 18; Temp 98.5(O); Pulse Ox 100% on R/A; Height 5 ft. 9 in. ;db 19:22 BP 114 / 62; Pulse 71; Resp 18; Temp 98.5; Pulse Ox 97% ; Pain 0/10; bm8 19:22 Pain Scale: Adult bm8 [place] Coma Score: 19:22 Eye Response: spontaneous(4). Motor Response: obeys commands(6). Verbal Response: bm8 oriented(5). Total: 15. MDM: 17:01 Patient medically screened. kb 19:15 Differential diagnosis: uti, constipation, dehydration, viral illness. Data reviewed: kb vital signs, nurses notes. Counseling: I had a detailed discussion with the patient and/or guardian regarding the historical points, exam findings, and any diagnostic results supporting the discharge/admit diagnosis, lab results, radiology results, the need for outpatient follow up, a family practitioner, to return to the emergency department if symptoms worsen or persist or if there are any questions or concerns that arise at home. 01/12 17:17 Order name: CBC with Diff; Complete Time: 17:44 kb 01/12 17:17 Order name: CMP; Complete Time: 17:58 kb 01/12 17:17 Order name: Flu; Complete Time: 18:07 kb 01/12 17:17 Order name: SARS-COV-2 Antigen Rapid; Complete Time: 18:07 kb 01/12 18:16 Order name: Urinalysis w/ reflexes; Complete Time: 19:14 kb 01/12 19:15 Order name: Urine Culture EDMS 01/12 17:17 Order name: Chest Single View XRAY; Complete Time: 18:07 kb 01/12 18:13 Order name: CT Abd/Pelvis - IV Contrast Only; Complete Time: 18:50 kb 01/12 17:17 Order name: IV Start; Complete Time: 17:36 kb Administered Medications: 17:57 Drug: NS 0.9% IV 1000 ml IV at 1000 ml once Route: IV; Rate: 1000 ml; Site: right mb9 antecubital; 18:54 Follow up: Response: No adverse reaction; IV Status: Completed infusion mb9 17:59 Drug: Ondansetron IVP 4 mg IVP once; over 2 minutes Route: IVP; Site: right antecubital;mb9 18:54 Follow up: Response: No adverse reaction mb9 18:57 Drug: Magnesium Citrate PO Liquid 300 ml PO once Route: PO; mb9 19:16 Follow up: Response: No adverse reaction bm8 Disposition: 20:02 Co-signature as Attending Physician, Enrique Sigala MD I reviewed the patient's care rt provided by the Advanced Practice Provider and agree with the diagnosis and treatment plan. Disposition Summary: 01/13/24 19:25 Discharge Ordered Notes: Location: Home kb Condition: Stable kb Diagnosis - UTI/ Urinary tract infection, site not specified kb - Constipation kb - Local infection of the skin and subcutaneous tissue, unspecified kb Followup: kb - With: Emergency Department - When: As needed - Reason: Worsening of condition Followup: kb - With: Private Physician - When: 2 - 3 days - Reason: Recheck today's complaints, Continuance of care, Re-evaluation by your physician Discharge Instructions: - Discharge Summary Sheet kb - Constipation, Adult, [id number] kb - Urinary Tract Infection, Adult, [id number] kb - Wound Infection, [id number] kb Forms: - Medication Reconciliation Form kb - Antibiotic Education kb - Prescription Opioid Use kb - Patient Portal Instructions kb - Leadership Thank You Letter kb Prescriptions: - Cephalexin 500 mg Oral Capsule - take 1 capsule ORAL route every 8 hours for 10 days; 30 capsule; Refills: 0, kb Product Selection Permitted Signatures: Dispatcher [employer] EDMS Angelika Kincaid, OCCUPATIONAL HEALTH NURSE SUPERVISOR-C OCCUPATIONAL HEALTH NURSE SUPERVISOR-Ckb Michelle Brown, RN RN Sharlene Mills RN RN mb9 Enrique Sigala MD MD rt Paxton Mcadams RN bm8 Corrections: (The following items were deleted from the chart) 17:18 17:18 CBC+H.LAB.BRZ ordered. EDMS EDMS 17:18 17:18 COMPREHENSIVE METABOLIC PANEL+C.LAB.BRZ ordered. EDMS EDMS 17:18 17:18 Influenza Screen (A \T\ B)+BA.LAB.BRZ ordered. EDMS EDMS 17:18 17:18 SARS-COV-2 Antigen Rapid+I.LAB.BRZ ordered. EDMS EDMS
[2024-01-13 19:56] VITALS: TEMP 98.5
[2024-01-13 19:59] VITALS: BP 114/62; O2SAT 97
== END 2024-01-13 19:35 | disposition home or self-care (01) ==
LOC: ER 16:56
DX: N39.0 Urinary tract infection, site not specified (principal); K59.00 Constipation, unspecified; L08.9 Local infection of the skin and subcutaneous tissue, unspecified; Z11.52 Encounter for screening for COVID-19; F17.210 Nicotine dependence, cigarettes, uncomplicated
CPT/HCPCS: 96361; 87088; 85025; 81001; 87086; 36415; 80053; 87804 ×2; 74177; 71045; 96374; 99285; 87811; Q9967; J2405; J7030

== ENCOUNTER 2024-04-10 18:51 | Emergency (ER) | payer OTHER ==
--- OUTSIDE RECORDS SUMMARY | 2024-04-10 18:55 | XMS REPORT | Continuity of Care Document ---
Author Name Unknown Address [address] [facility] [place] [address] [facility] Address [address] [facility] [address] [place] [address] Care Team Providers Care Order Runner Name Role Phone LisaAlbina Adams Primary Care Physician MANN GARDNER Attending Clinician Unavailable LOS HICKS Attending Clinician Unavailable RAMOS CAMACHO Attending Clinician Unavailable KLARISSA DUNCAN Attending Clinician Unavailable LAB45 Attending Clinician Unavailable GENARO GALINDO Attending Clinician Unavailable NAVEEN ESQUIVEL Attending Clinician Unavailable LAB90 Attending Clinician Unavailable SHAISTA COLINDRES Attending Clinician Unavailable CLEMENT BARAHONA Attending Clinician Ashley CHANTALE Cruz-TELLY Attending Clinician Unavailable CECIL BARNEY Attending Clinician Unavailab azalea WHITAKER MD Attending Clinician Unavailab CUCO Bose Attending Clinician Unava ilable BON MONTELONGO Attending Clinician UnavailJENNIFER Villafana Attending Clinician Unavailable TROY TAN Attending Clinician Unavai lable [id number] Attending Clinician Unavailable PHIL GARCIA Attending Clinician Unavailable TROY HANEY Attending Clinician Unavailable JOSE PINO Attending Clinician Unavailable LAB53 Attending Clinician Unavailable ANA LUISA HEREDIA Attending [...] Clinician Unavailable Francisco Samaniego DO Attending Clinician [phone] MCNULTYZOILA S Attending Clinician Unavailable Mcnulty PAC Zoila S Attending Clinician [phone] Doctor Unassigned, Chamisal Attending Clinician U wenceslao Gutierrez RN, Claudine Mccauley Attending Clinician + [phone] Olga Camejo MD Attending Clinician [phone] Liam GONSALEZ, Gifty Attending Clinician [phone] Melania Ledbetter MD Attending Clinician [phone] MELANIA LEDBETTER Attending Clinician Unavailable Cuco Andrews Admitting Clinician Unavailable FRANCISCO SAMANIEGO Admitting Clinician Unavailable Liam GONSALEZ, Gifty Admitting Clinician [phone] GIFTY DSOUZA Admitting Clinician Unavailable Payers Payer Name Policy Type Policy Number Effective Date Expirati on Date Source [employer]HA [address] ON/OFF 9 [id number] 2023 00:00:00 COMMERCIAL NON-CONTRACT GENERIC [id number] 2021 00:00:00 Problems Condition Name Condition Details Condition Category Status Onset Date Resolution Date Last Treatment Date Treating Clinician Comments Source Unable to lose weight Unable to lose weight Disease Active 10-06 00:00: 00 Leandra hidalgo Class 2 obesity due to excess [...] Family history of hypertensi on Disease Active 2024-0 4-04 00:00: 00 Leandra Boykinold - Externa l Palpitatio ns Palpitatio ns Disease Active 4-04 00:00: 00 Leandra Boykinold - Externa l Mild major depression Mild major depression Disease Active 3-04 00:00: 00 Leandra Boykinold - Externa l Systemic lupus erythemato kimberly, unspecifie d SLE type, unspecifie d organ involvemen t status (multi HCC) Systemic lupus erythemato kimberly, unspecifie d SLE type, unspecifie d organ involvemen t status (multi HCC) Disease Active 3-04 00:00: 00 Leandra Boykinold - Externa l Pyelonephr itis Pyelonephr itis Disease Active 2- 00:00: 00 [facility] Obesity (BMI 30-39.9) Obesity (BMI 30-39.9) Disease Active 05-14 00:00: 00 [facility] Allergies, Adverse Reactions, Alerts Allergy Name Allergy Type Status Severity Reaction(s) Onset Date Inactive Date Treating Clinician Comments Source Codeine Propensi ty to adverse reaction s Active Nausea and Vomiting 11-15 00:00: 00 Leandra Boykinold - Externa l Sulfa (Sulfona mide Antibiot ics) Propensi ty to adverse reaction to drug Active 11-15 00:00: 00 Sulfa Drugs Propensi ty to adverse reaction s Active Other 07-04 00:00: 00 Rash, fever Leandra Jacob - Externa l SULFA (SULFONA MIDE ANTIBIOT ICS) Drug Class Active Other-Cmnt 07-04 00:00: 00 [facility] Sulfa (Sulfona mide Antibiot ics) Propensi ty to adverse reaction s Active Other - See comments 07-04 00:00: 00 Rash, fever [facility] No Known Allergie s DA Active U 9-14 00:00: 00 [facility] NO KNOWN ALLERGIE S Drug Class Active [facility] Social History Social Habit Start Date Stop Date Quantity Comments Source Sexual orientation U [facility] Gender identity Lindsay Jacob - External ASSERTION Not Leandra Jacob - External History of tobacco use Passive smoker Leandra adam - External Alcoholic beverage intake 2024-03-10 00:00:00 2024-03-10 00:00:00 Ex-drinker (finding) Leandra Jacob - External Alcohol intake 2023-08-14 00:00:00 2023-08-14 00:00:00 Lifetime non-drinker (finding) Leandra Jacob - External Sex 2022-05-09 16:04:28 2022-05-09 16:04:28 Female (finding) Leandra Jacob - External Exposure to SARS-CoV-2 (event) 2022-01-01 00:00:00 2022-01-11 06:41:00 Not sure [facility] History of Social function 2022-01-11 00:00:00 2022-01-11 00:00:00 [facility] Tobacco use and exposure 2021-06-21 00:00:00 2021-06-21 00:00:00 User of smokeless tobacco [facility] Tobacco Comment 2021-06-21 00:00:00 2021-06-21 00:00:00 occasional smoker 1-3 sticks per week [facility] Sex assigned at 1980 00:00:00 1980 00:00:00 Leandra Jacob - Kulwant Smoking Status Start Date Stop Date Source Occasional tobacco smoker 2023-10-01 00:00:00 Leandra Jacob - External Smokes tobacco daily 2022-08-07 00:00:00 Leandra Jacob - External Medications Ordered Medication Name Filled Medication Name Start Date Stop Date Current Medication? Ordering Clinician Indication Dosage Frequency Signature (SIG) Comments Components Source Pregabalin 100 MG oral Capsule 2023-05 00:00: 00 Yes [id number] 100mg Q.5D Take 1 capsule (100 mg total) by mouth 2 times daily. Leandra Jacob - Externa l Tramadol HCl (ULTRAM) 50 MG oral Tablet 2023-05 00:00: 00 Yes [id number] 50mg Q.[id number] 3D Take 1 tablet (50 mg total) by mouth every 8 hours as needed for pain. Leandra hidalgo methylPREDN ISolone 4 MG oral Tablet Therapy Pack 2023-05 0 00:00: 00 Yes [id number] Take as directed. Leandra hidalgo Baclofen 10 MG oral Tablet 2023-05 0 00:00: 00 Yes [id number] 10mg Q.25256807 [id number] 3D Take 1 tablet (10 mg total) by mouth 3 times daily. Leandra hidalgo Metronidazo le 500 MG oral Tablet 2023-05 0- 00:00: 00 Yes [id number] 500mg Q.5D Take 1 tablet (500 mg total) by mouth 2 times daily. Leandra hidalgo Ondansetron (ZOFRAN) 4 MG oral TABLET DISPERSIBLE 2023-05 0- 00:00: 00 Yes [id number] 4mg Q.[id number] 3D Take 1 tablet (4 mg total) by mouth every 8 hours as needed for nausea. Leandra hidalgo Fluconazole 150 MG oral Tablet 2023-05 0 17:03: 34 Yes [id number] 150mg Take 1 tablet (150 mg total) by mouth once for 1 dose. Leandra hidalgo Clindamycin HCl 300 MG oral Capsule 2023-05 0- 00:00: 00 Yes [id number] 300mg Q.13794732 [id number] 3D Take 1 capsule (300 mg total) by mouth 3 times daily. Leandra hidalgo Fluconazole 150 MG oral Tablet 2023-05 0- 00:00: 00 03-10 00:00 :00 No TAKE ONE (1) TABLET(S) BY MOUTH ONCE A DAY FOR 1 DOSE. Leandra hidalgo Ondansetron (ZOFRAN) 4 MG oral TABLET DISPERSIBLE 01-25 00:00: 00 Yes [id number] DISSOLVE ONE (1) TABLET BY MOUTH EVERY 8 HOURS NEEDED. Leandra hidalgo Pregabalin 75 MG oral Capsule 01-25 00:00: 00 03-10 00:00 :00 No [id number] TAKE ONE (1) CAPSULE BY MOUTH 2 TIMES DAILY. Leandra hidalgo Tramadol HCl (ULTRAM) 50 MG oral Tablet 01-25 00:00: 00 03-10 00:00 :00 No [id number] 50mg Q.55071379 [id number] 3D TAKE ONE (1) TABLET(S) BY MOUTH EVERY EIGHT HOURS NEEDED FOR PAIN. Leandra hidalgo Cephalexin 500 MG oral Capsule 01-13 00:00: 00 Yes TAKE ONE (1) CAPSULE(S) BY MOUTH EVERY EIGHT HOURS FOR 10 DAYS. Leandra hidalgo Amoxicillin -Pot Clavulanate 875-125 MG oral Tablet 12-23 00:00: 00 02-11 00:00 :00 No [id number] 1{tbl} Q.5D Take 1 tablet by mouth 2 times daily. Leandra hidalgo FLUTICASONE PROPIONATE, NASAL, (Flonase) 50 MCG/ACT nasal Suspension 12-22 00:00: 00 Yes [id number] 50ug QD Use 1 spray (50 mcg total) in each nostril daily as needed for rhinitis. Leandra hidalgo methylPREDN ISolone 4 MG oral Tablet Therapy Pack 12-22 00:00: 00 02-26 00:00 :00 No [id number] Take 1 vignesh by mouth See Admin Instructio ns Use as directed. Leandra hidalgo Ondansetron (ZOFRAN) 4 MG oral TABLET DISPERSIBLE 12-22 00:00: 00 01-06 04:59 :00 No [id number] 4mg Q.66132913 [id number] 3D Take 1 tablet (4 mg total) by mouth every 8 hours as needed for nausea for up to 14 days. Leandra hidalgo Propranolol HCl 10 MG oral Tablet 12-19 00:00: 00 Yes [id number] 10mg Q.5D Take 1 tablet (10 mg total) by mouth 2 times daily as needed (Anxiety) Only to use as needed for palpations , heart rate must be above 60.. Leandra hidalgo Pregabalin 75 MG oral Capsule 8-09 00:00: 00 Yes [id number] TAKE ONE (1) CAPSULE BY MOUTH 2 TIMES DAILY. Leandra hidalgo Bupropion HCL XL 150 MG OR TB24 8 00:00: 00 Yes 150mg QD Take 1 tablet (150 mg total) by mouth daily. Leandra hidalgo Ondansetron (ZOFRAN) 4 MG oral TABLET DISPERSIBLE 12-08 00:00: 00 12-22 00:00 :00 No [id number] DISSOLVE ONE (1) TABLET BY MOUTH EVERY 8 HOURS NEEDED. Leandra hidalgo Elagolix Sodium 150 MG oral Tablet 10-20 00:00: 00 Yes [id number] 150mg QD Take 150 mg by mouth daily. Leandra hidalgo Ketorolac Tromethamin e 10 MG oral Tablet 10-20 00:00: 00 Yes [id number] 10mg Q.25D Take 1 tablet (10 mg total) by mouth every 6 hours as needed for pain. Leandra hidalgo methylPREDN ISolone 4 MG oral Tablet Therapy Pack 10-11 00:00: 00 12-22 00:00 :00 No [id number] 1{vignesh} Take 1 vignesh by mouth See Admin Instructio ns Use as directed. Leandra hidalgo Ondansetron HCl 4 MG oral Tablet 10-11 00:00: 00 10-20 00:00 :00 No [id number] 4mg Q.99510470 [id number] 3D Take 1 tablet (4 mg total) by mouth every 8 hours as needed for nausea. Leandra hidalgo Semaglutide -Kiara ght Management 0.25 MG/0.5ML Subcutaneou s Solution Auto-inject or 5-28 00:00: 00 10-20 00:00 :00 No [id number] .25mg Inject 0.25 mg into the skin once a week. Leandra hidalgo Bupropion HCL XL 150 MG OR TB24 10-03 00:00: 00 10-20 00:00 :00 No Leandra hidalgo Escitalopra m Oxalate 10 MG oral Tablet 10-03 00:00: 00 10-20 00:00 :00 No Leandra hidalgo Ketorolac Tromethamin e (TORADOL) 30 mg/mL 09-15 17:15: 00 09-15 17:14 :00 No [id number] 60mg 60 mg, intramuscu lar, ONCE, On Fri09/16/23 at 1215, For 1 dose Leandra hidalgo Triamcinolo ne Acetonide (KENALOG) 40 mg/mL 09-15 14:45: 00 09-15 17:01 :59 No [id number] 60mg Leandra hidalgo Pregabalin (Lyrica) 75 MG oral Capsule 09-15 00:00: 00 Yes [id number] 75mg Take 1 capsule (75 mg total) by mouth 2 times daily. Leandra hidalgo Tramadol HCl (ULTRAM) 50 MG oral Tablet 09-15 00:00: 10-16 04:59 :00 No [id number] 50mg Q.[id number] 3D Take 1 tablet (50 mg total) by mouth every 8 hours as needed for pain. Leandra hidalgo methylPREDN ISolone (Medrol) 4 MG oral Tablet Therapy Pack 09-15 00:00: 09-30 00:00 :00 No [id number] 1{vignesh} Take 1 vignesh by mouth See Admin Instructio ns Use as directed.. Leandra hidalgo Gabapentin 100 MG oral Capsule 09-12 00:00: 00 09-30 00:00 :00 No [id number] 100mg Q.25D Take 1 capsule (100 mg total) by mouth 4 times daily as needed No driving on medication . Leandra hidalgo Propranolol HCl 10 MG oral Tablet 2024-0 4-04 00:00: 00 Yes [id number] 10mg Q.5D Take 1 tablet (10 mg total) by mouth 2 times daily as needed (Anxiety) Only to use as needed palpations , heart rate must be above 60.. Leandra hidalgo Ondansetron (ZOFRAN) 4 MG oral TABLET DISPERSIBLE 4-04 00:00: 00 Yes [id number] 4mg Q.[id number] 3D Take 1 tablet (4 mg total) by mouth every 8 hours as needed. Leandra hidalgo Gabapentin 100 MG oral Capsule 3-04 14:01: 31 07-13 00:00 :00 No 100mg Take 1 capsule (100 mg total) by mouth 3 times daily. Leandra hidalgo Ondansetron (ZOFRAN) 4 MG oral TABLET DISPERSIBLE 3-04 00:00: 00 Yes [id number] 4mg Q.03491825 [id number] 3D Take 1 tablet (4 mg total) by mouth every 8 hours as needed. Leandra hidalgo Gabapentin 100 MG oral Capsule 3-04 00:00: 00 Yes [id number] 100mg Take 1 capsule (100 mg total) by mouth 4 times daily. Leandra hidalgo Gabapentin 100 MG oral Capsule 2-17 00:00: 00 07-13 00:00 :00 No 100mg Take 1 capsule (100 mg total) by mouth 3 times daily. Leandra hidalgo Ondansetron (ZOFRAN) 4 MG oral TABLET DISPERSIBLE 2-12 00:00: 00 Yes [id number] 4mg Q.84413393 [id number] 3D Take 1 tablet (4 mg total) by mouth every 8 hours as needed. Leandra hidalgo Azithromyci n 250 MG oral Tablet 2-12 00:00: 00 06-29 05:59 :00 No [id number] Take 2 tablets by mouth on day 1 then 1 tablet by mouth daily for 4 days thereafter .. Leandra hidalgo Bupropion HCL XL 150 MG OR TB24 05-15 00:00: 00 Yes [id number] 150mg Take 1 tablet (150 mg total) by mouth daily. Leandra hidalgo Escitalopra m Oxalate 10 MG oral Tablet 05-15 00:00: 00 Yes [id number] 10mg Take 1 tablet (10 mg total) by mouth daily. Leandra hidalgo methylPREDN ISolone 4 MG oral Tablet Therapy Pack 2022-05 00:00: 00 07-13 00:00 :00 No [id number] 1{vignesh} Take 1 vignesh by mouth See Admin Instructio ns Use as directed. Leandra hidalgo Benzonatate 200 MG oral Capsule 2022-05 00:00: 00 07-13 00:00 :00 No [id number] 200mg Q.[id number] 3D Take 1 capsule (200 mg total) by mouth 3 times daily as needed for cough. Leandra hidalgo Oseltamivir Phosphate (Tamiflu) 75 MG oral Capsule 2022-05 00:00: 00 04-04 05:59 :00 No [id number] 75mg Take 1 capsule (75 mg total) by mouth 2 times daily for 5 days. Leandra hidalgo FLUTICASONE PROPIONATE, NASAL, 50 MCG/ACT nasal Suspension 01-20 00:00: 00 07-13 00:00 :00 No [id number] 50ug Use 1 spray (50 mcg total) in each nostril daily. Leandra hidalgo Ondansetron HCl 4 MG oral Tablet 01-20 00:00: 00 06-23 00:00 :00 No [id number] 4mg Q.22459936 [id number] 3D Take 1 tablet (4 mg total) by mouth every 8 hours as needed for nausea. Leandra hidalgo PAXLOVID STANDARD (30) (300/100) Therapy Pack 01-20 00:00: 00 01-26 04:59 :00 No [id number] Take two 150 mg nirmatrelv ir (pink) tablets with one 100 mg ritonavir (white) tablet by mouth two times daily for 5 days. Leandra hidalgo Bupropion HCL XL 150 MG OR TB24 8- 00:00: 00 Yes [id number] 150mg TAKE ONE (1) TABLET (150 MG TOTAL) BY MOUTH DAILY. Leandra hidalgo Escitalopra m Oxalate 10 MG oral Tablet 8 00:00: 00 Yes [id number] 10mg TAKE ONE (1) TABLET (10 MG TOTAL) BY MOUTH DAILY. Leandra hidalgo Methylpredn isolone Acetate (DEPO-MEDRO L) [80 mg/ml] 09-24 14:45: 00 09-24 14:37 :00 No [id number] 80mg Leandra hidalgo Methotrexat e 50 MG/2ML injection Solution 09-24 00:00: 00 07-13 00:00 :00 No [id number] Inject 0.4ml SC once a week Leandra hidalgo Escitalopra m Oxalate (Lexapro) 10 MG oral Tablet 09-03 00:00: 00 Yes [id number] 10mg Take 1 tablet (10 mg total) by mouth daily Leandra hidalgo Bupropion HCL XL 150 MG OR TB24 -25 00:00: 00 Yes [id number] 150mg Take 1 tablet (150 mg total) by mouth daily Leandra hidalgo Ondansetron (ZOFRAN) 4 MG oral TABLET DISPERSIBLE 25 00:00: 00 06-23 00:00 :00 No [id number] 4mg Q.[id number] 3D Take 1 tablet (4 mg total) by mouth every 8 hours as needed Leandra hidalgo Ondansetron HCl 4 MG oral Tablet 17 00:00: 00 01-20 00:00 :00 No [id number] 4mg Q.86308149 [id number] 3D Take 1 tablet (4 mg total) by mouth every 8 hours as needed for nausea Leandra hidalgo methylPREDN ISolone 4 MG oral Tablet Therapy Pack 4-17 00:00: 00 09-24 00:00 :00 No [id number] 1{vignesh} Take 1 vignesh by mouth See Admin Instructio ns Use as directed Leandra hidalgo predniSONE (DELTASONE) 10 MG oral tablet 3-30 00:00: 00 09-24 00:00 :00 No [id number] 1 pill twice daily for 5 days then 1 pill once daily for 5 days Leandra hidalgo iopamidol (ISOVUE 370-500 mL) injection 64 mL 01-11 14:00: 00 01-11 12:59 :00 No [id number] 64mL 64 mL, Intravenou s, ONCE, 1 dose, On Fri01/11/22 at 0900, Routine [facility] ondansetron (ZOFRAN (PF)) injection 4 mg 01-11 13:15: 00 01-11 12:35 :00 No 4mg 4 mg, Slow IV Push, ONCE, 1 dose, On Fri01/11/22 at 0815, Routine [facility] morpHINE (4 mg/mL) injection 4 mg 01-11 13:15: 00 01-11 12:36 :00 No 4mg 4 mg, Slow IV Push, ONCE, 1 dose, On Fri01/11/22 at 0815, STAT [facility] piperacilli n-tazobacta m (ZOSYN) 3.375 g in NaCl 0.9% (NS) 50 mL MINI-BAG 01-11 12:31: 00 01-11 13:06 :00 No 3.375g 3.375 g, IV Piggyback, ONCE, 1 dose, On Fri01/11/22 at 0745, Administer over 30 Minutes, 50 mL
Reas on for Anti-Infec tive: Empiric Therapy for Suspected Infection< br>Empiric Therapy Site: Skin / Soft tissue
Duration of therapy: 72 hours [facility] dexamethaso ne sod phos PF injection 10 mg 01-11 12:15: 00 01-11 12:30 :00 No 10mg 10 mg, Slow IV Push, ONCE, 1 dose, On Fri01/11/22 at 0715, 1 mL [facility] chlorhexidi ne 0.12 % mouthwash 01-11 00:00: 00 Yes [id number] 15mL Swish and spit out 15 mL in the morning and 15 mL in the evening. [facility] methylPREDN ISolone (MEDROL, VIGNESH,) 4 mg tablets 01-11 00:00: 00 Yes [id number] Take by mouth SEE-INSTRU CTIONS. follow package directions [facility] Ondansetron (ZOFRAN) 4 MG oral TABLET DISPERSIBLE 01-11 00:00: 00 09-03 00:00 :00 No 4mg Q.[id number] 3D Take 4 mg by mouth every 8 hours as needed Leandra hidalgo clindamycin 150 mg capsule 01-11 00:00: 00 01-19 04:59 :00 No [id number] 300mg Take 2 capsules by mouth 4 (four) times daily for 7 days. [facility] HYDROcodone -acetaminop hen (NORCO) 10-325 mg tablet 01-11 00:00: 00 01-19 04:59 :00 No [id number] .5{tbl} Take 0.5-1 tablets by mouth every 6 (six) hours as needed for Pain (scale 7-10) for up to 7 days. Indication s: acute pain [facility] Dose Unknown 11-15 00:00: 00 No [...] 1 dose, On Fri07/04/21 at 1330, STAT [facility] ondansetron (ZOFRAN (PF)) injection 4 mg 07-04 19:30: 00 07-04 18:40 :00 No 4mg 4 mg, Slow IV Push, ONCE, 1 dose, On Fri07/04/21 at 1330, KEON [facility] NaCl 0.9% (NS) bolus infusion 500 mL 07-04 19:30: 00 07-04 19:40 :00 No 500mL at 999 mL/hr, 500 mL, IV Infusion, ONCE, 1 dose, On Fri07/04/21 at 1330, STAT [facility] NaCl 0.9% (NS) bolus infusion 1,000 mL 07-04 18:00: 00 07-04 17:58 :00 No 1000mL at 999 mL/hr, 1,000 mL, IV Infusion, ONCE, 1 dose, On Fri07/04/21 at 1200, STAT [facility] acetaminoph en (CHILDREN'S ACETAMINOPH EN) 160 mg/5 mL (5 mL) oral suspension 650 mg 07-04 17:10: 00 07-04 17:08 :00 No 650mg 650 mg, Oral, ONCE, 1 dose, On Fri07/04/21 at 1115, Routine [facility] predniSONE 20 mg tablet 07-04 00:00: 00 07-14 05:59 :00 No [id number] Take 3 tablets by mouth every morning for 3 days, THEN 2 tablets every morning for 3 days, THEN 1 tablet every morning for 3 days. [facility] ciprofloxac in 250 mg tablet -16 00:00: 00 No 1mg acetaminoph en (TYLENOL) 325 mg tablet -14 06:51: 01 Yes Take by mouth every 6 (six) hours as needed. [facility] naproxen 250 mg tablet 06-25 06:51: 01 Yes 250mg Take 250 mg by mouth 2 (two) times daily with meals. [facility] vitamin B-12 (CYANOCOBAL HIGHTOWER) tablet 1,000 mcg 06-24 15:00: 00 Yes 1000ug 1,000 mcg, Oral, DAILY, First dose on 06/24/21 at 0900, Until Discontinu ed, Routine [facility] vitamin B-12 1,000 mcg tablet 06-24 00:00: 00 07-25 04:59 :00 No [id number] 1000ug Take 1 tablet by mouth daily for 30 days. [facility] ibuprofen 800 mg tablet 06-23 18:52: 02 Yes 800mg Take 800 mg by mouth every 8 (eight) hours as needed. [facility] acetaminoph en (TYLENOL) 325 mg tablet 06-23 18:52: 02 Yes Take by mouth every 6 (six) hours as needed. [facility] naproxen 250 mg tablet 06-23 18:52: 02 Yes 250mg Take 250 mg by mouth 2 (two) times daily with meals. [facility] magnesium sulfate in water 2 gram/50 mL (4 %) infusion 2 g 06-23 15:30: 00 06-23 15:33 :00 No 2g 2 g, IV Piggyback, ONCE, 1 dose, On 06/23/21 at 0930, Routine [facility] acetaminoph en-codeine (TYLENOL #3) 300-30 mg tablet 1 tablet 06-23 07:51: 31 Yes 1{tbl} 1 tablet, Oral, Q6HPRN, Starting on 06/23/21 at 0151, Until Discontinu ed, Routine, Pain (scale 4-6) [facility] omeprazole 20 mg capsule 06-23 00:00: 00 07-24 04:59 :00 No [id number] 20mg Take 1 capsule by mouth daily for 30 days. [facility] sulfamethox azole-trime thoprim (BACTRIM DS) 800-160 mg per tablet 06-23 00:00: 00 07-05 05:59 :00 No [id number] 1{tbl} Take 1 tablet by mouth 2 (two) times daily for 11 days. [facility] HYDROcodone -acetaminop hen 10-325 mg tablet 06-23 00:00: 00 07-01 05:59 :00 No [id number] 1{tbl} Take 1 tablet by mouth every 8 (eight) hours as needed for Pain (scale 7-10) for up to 7 days. Indication s: acute pain [facility] levoFLOXaci n 750 mg tablet 06-23 00:00: 00 06-23 00:00 :00 No [id number] 750mg Take 1 tablet by mouth every 24 (twenty-fo ur) hours for 4 days. [facility] NaCl 0.9% (NS) injection 10 mL 06-22 18:40: 31 Yes 10mL 10 mL, Slow IV Push, PRN, Starting on Fri06/22/21 at 1240, Until Discontinu ed, Routine, line maintenanc e [facility] lidocaine 1% (PF) (XYLOCAINE) injection 5 mL 06-22 18:40: 31 Yes 5mL 5 mL, Subcutaneo us, PRN, Starting on Fri06/22/21 at 1240, Until Discontinu ed, Routine, Local anesthesia [facility] sennosides- docusate sodium (SENOKOT-S) 8.6-50 mg per tablet 1 tablet 06-22 15:00: 00 Yes 1{tbl} 1 tablet, Oral, DAILY, First dose on Fri06/22/21 at 0900, Until Discontinu ed, Routine [facility] enoxaparin (LOVENOX) injection 40 mg 06-21 23:00: 00 Yes 40mg 40 mg, Subcutaneo us, DAILY, First dose on Fri06/21/21 at 1700, Until Discontinu ed, Routine [facility] butalbital- acetaminoph en-caff (ESGIC) 50-325-40 mg tablet 1 tablet 06-21 20:30: 00 06-21 19:49 :00 No 1{tbl} 1 tablet, Oral, ONCE NOW, 1 dose, On Magdalene 06/21/21 at 1430, Routine [facility] ceFEPIme (MAXIPIME) 2,000 mg in NaCl 0.9% (NS) 100 mL MINI-BAG 06-21 18:00: 00 Yes 2000mg 2,000 mg, IV Piggyback, Q8H ABX, First dose (after last modificati on) on Magdalene 06/21/21 at 1200, Until Discontinu ed, Administer over 30 Minutes, 100 mL
Reas on for Anti-Infec tive: Documented Infection< br>Documen ras Infection Site: Urine
D uration of Therapy: [address] [facility] polyethylen e glycol 3350 powder 17 g 06-21 17:00: 00 Yes 17g 17 g, Oral, DAILY, First dose on Magdalene 06/21/21 at 1100, Until Discontinu ed, Routine [facility] cyanocobala min (VITAMIN B12) injection 1,000 mcg 06-21 14:30: 00 06-23 14:23 :00 No 1000ug 1,000 mcg, Intramuscu lar, Q24H, 3 doses, First dose on Magdalene 06/21/21 at 0830, Last dose on [facility] 06/23/21 at 0830, Routine [facility] HYDROcodone -acetaminop hen (NORCO) 10-325 mg tablet 1 tablet 06-21 09:15: 31 Yes 1{tbl} 1 tablet, Oral, Q6HPRN, Starting on Magdalene 06/21/21 at 0315, Until Discontinu ed, Routine, Pain (scale 7-10) [facility] ondansetron (ZOFRAN (PF)) injection 4 mg 06-21 09:05: 11 Yes 4mg 4 mg, Slow IV Push, Q6HPRN, Starting on Magdalene 06/21/21 at 0305, Until Discontinu ed, Routine, Nausea and Vomiting (N/V) [facility] acetaminoph en (TYLENOL) tablet 650 mg 06-21 09:05: 11 Yes 650mg 650 mg, Oral, Q6HPRN, Starting on Magdalene 06/21/21 at 0305, Until Discontinu ed, Routine, Pain (scale 1-3) [facility] morpHINE injection 4 mg 06-21 08:00: 00 06-21 06:59 :00 No 4mg 4 mg, Slow IV Push, ONCE, 1 dose, On Magdalene 06/21/21 at 0200, STAT [facility] acetaminoph en (CHILDREN'S ACETAMINOPH EN) 160 mg/5 mL (5 mL) oral suspension 1,000 mg 06-21 07:15: 00 06-21 06:15 :00 No 1000mg 1,000 mg, Oral, ONCE, 1 dose, On Magdalene 06/21/21 at 0115, Routine [facility] ketorolac (TORADOL) injection 30 mg 06-21 06:30: 00 06-21 05:33 :00 No 30mg 30 mg, Slow IV Push, ONCE, 1 dose, On Magdalene 06/21/21 at 0030, KEON
[facility] member approving Restricted medication : OLGA CAMEJO [facility] vancomycin (VANCOCIN) 1,500 mg in NaCl [...]
D uration of Therapy: Other (see Comments) [facility] ceFEPIme (MAXIPIME) injection 1,000 mg 06-21 05:30: 00 06-21 04:59 :00 No 1000mg 1,000 mg, IV Piggyback, ONCE, 1 dose, On Fri06/20/21 at 2330, STAT
Re ason for Anti-Infec tive: Empiric Therapy for Suspected Infection< br>Empiric Therapy Site: Blood
D uration of therapy: 72 hours [facility] NaCl 0.9% (NS) bolus infusion 1,000 mL 06-21 04:15: 00 06-21 05:19 :00 No 1000mL at 999 mL/hr, 1,000 mL, IV Infusion, ONCE, 1 dose, On Fri06/20/21 at 2215, STAT [facility] HYDROcodone -acetaminop hen (NORCO) 10-325 mg tablet 06-21 03:06: 45 06-21 00:00 :00 No 1{tbl} Take 1 tablet by mouth every 4 (four) hours as needed. [facility] busPIRone 10 mg tablet 06-21 03:06: 45 06-21 00:00 :00 No 10mg Take 10 mg by mouth 2 (two) times daily as needed. [facility] predniSONE 10 mg tablet 06-21 03:06: 45 06-21 00:00 :00 No 10mg Take 10 mg by mouth daily. [facility] BUPROPION HCL (WELLBUTRIN ORAL) 06-21 03:06: 45 06-21 00:00 :00 No 200mg Take 200 mg by mouth daily. [facility] prednisone 20 mg tablet 06-19 00:00: 00 No mg phenazopyri dine 100 mg tablet 06-19 00:00: 00 No 1mg Macrobid 100 mg capsule 06-19 00:00: 00 No 1mg amoxicillin -clavulanat e (AUGMENTIN) 875-125 mg per tablet 1-03 00:00: 00 06-21 00:00 :00 No 1{tbl} Take 1 tablet by mouth 2 (two) times daily. [facility] Immunizations Ordered Immunization Name Filled Immunization Name Date Status Comments Source Td 2014-11-29 00:00:00 Completed [facility] Td 2014-11-29 00:00:00 Completed [facility] Td 2014-11-29 00:00:00 Completed [facility] Td 2014-11-29 00:00:00 Completed [facility] Td 2014-11-29 00:00:00 Completed [facility] Td (adult) 2014-11-29 00:00:00 Completed Leandra Seybold - External Td (adult) 2014-11-29 00:00:00 Completed Leandra Seybold - External Td (adult) 2014-11-29 00:00:00 Completed Leandra Seybold - External Td (adult) 2014-11-29 00:00:00 Completed Leandra Seybold - External Td (adult) 2014-11-29 00:00:00 Completed Leandra Seybold - External TD, NOS Unknown Completed [facility] Td (adult) Unknown Completed Leandra Se ybold [...] Value Comments S ource Systolic blood pressure 2024-03-10 16:33:00 110 mm[Hg] Leandra Seybo ld - External Diastolic blood pressure 2024-03-10 16:33:00 70 mm[Hg] Leandra Seybo ld - External Heart rate 2024-03-10 16:33:00 70 /min Kelse y Seybold - External Body temperature 2024-03-10 16:33:00 36.83 Bernadette Leandra Seybold - External Respiratory rate 2024-03-10 16:33:00 16 /min Leandra Seybold - External Body height 2024-03-10 16:33:00 175.3 cm Lindsay ey Seybold - External Body weight 2024-03-10 16:33:00 109.77 kg Lindsay ey Seybold - External BMI 2024-03-10 16:33:00 35.74 kg/m2 Lindsay ey Seybold - External Systolic blood pressure 2024-03-08 15:14:00 111 mm[Hg] Leandra Seybo ld - External Diastolic blood pressure 2024-03-08 15:14:00 72 mm[Hg] Leandra Seybo ld - External Heart rate 2024-03-08 15:14:00 74 /min Kelse y Seybold - External Body temperature 2024-03-08 15:14:00 36.89 Bernadette Leandra Seybold - External Respiratory rate 2024-03-08 15:14:00 18 /min Leandra Seybold - External Body height 2024-03-08 15:14:00 175.3 cm Lindsay ey Seybold - External Body weight 2024-03-08 15:14:00 109.77 kg Lindsay ey Seybold - External BMI 2024-03-08 15:14:00 35.74 kg/m2 Lindsay ey Seybold - External Oxygen saturation in Arterial blood by Pulse oximetry 2024-03-08 15:14:00 99 /min Leandra Seybo ld - External Systolic blood pressure 2024-02-12 21:18:00 102 mm[Hg] Leandra Seybo ld - External Diastolic blood pressure 2024-02-12 21:18:00 74 mm[Hg] Leandra Seybo ld - External Heart rate 2024-02-12 21:18:00 97 /min Kelse y Seybold - External Body temperature 2024-02-12 21:18:00 37 Bernadette Leandra Seybold - External Respiratory rate 2024-02-12 21:18:00 18 /min Leandra Seybold - External Body height 2024-02-12 21:18:00 175.3 cm Lindsay ey Seybold - External Body weight 2024-02-12 21:18:00 109.77 kg Lindsay ey Seybold - External BMI 2024-02-12 21:18:00 35.74 kg/m2 Lindsay ey Seybold - External Oxygen saturation in Arterial blood by Pulse oximetry 2024-02-12 21:18:00 98 /min Leandra Seybo ld - External Systolic blood pressure 2023-10-21 18:58:00 112 mm[Hg] [...] Systolic blood pressure 2023-07-14 19:36:00 98 mm[Hg] Leanrda Seybo ld - External Diastolic blood pressure [...] Pulse oximetry 2023-07-14 19:36:00 98 /min Leandra Seybo ld - External Systolic blood pressure 2022-09-24 [...] blood pressure 2022-08-26 16:02:00 118 mm[Hg] Leandra Boykino ld - External Diastolic blood pressure 2022-08-26 16:02:00 68 mm[Hg] Leandra Maryybo ld - External Heart rate 2022-08-26 16:02:00 89 /min Nolanse y Seybold - External Body temperature 2022-08-26 16:02:00 35.89 Bernadette Leandra Maryybold - External Respiratory rate 2022-08-26 16:02:00 16 /min Leandra Maryybold - External Body height 2022-08-26 16:02:00 175.3 cm Lindsay lucas Seybold - External Body weight 2022-08-26 16:02:00 105.688 kg Lindsay lucas Seybold - External BMI 2022-08-26 16:02:00 34.41 kg/m2 Lindsay lucas Seybold - External Oxygen saturation in Arterial blood by Pulse oximetry 2022-08-26 16:02:00 96 /min Leandra Boykino ld - External Systolic blood pressure 2022-08-07 14:23:00 108 mm[Hg] Leandra Maryybo ld - External Diastolic blood pressure 2022-08-07 14:23:00 76 mm[Hg] Leandra Maryybo ld - External Heart rate 2022-08-07 14:23:00 117 /min Carol y Seybold - External Body temperature 2022-08-07 14:23:00 36.39 Bernadette Leandra Maryybold - External Body height 2022-08-07 14:23:00 175.3 cm Lindsay lucas Seybold - External Body weight 2022-08-07 14:23:00 104.327 kg Lindsay lucas Seybold - External BMI 2022-08-07 14:23:00 33.97 kg/m2 Lindsay lucas Seybold - External Heart rate 2022-01-11 14:30:00 76 /min [facility] Oxygen saturation in Arterial blood by Pulse oximetry 2022-01-11 14:30:00 98 /min [facility] Systolic blood pressure 2022-01-11 14:00:00 119 mm[Hg] [facility] Diastolic blood pressure 2022-01-11 14:00:00 88 mm[Hg] [facility] Respiratory rate 2022-01-11 14:00:00 16 /min [facility] Body temperature 2022-01-11 11:44:00 37.33 Bernadette [facility] Body height 2022-01-11 11:44:00 175.3 cm [facility] Body weight 2022-01-11 11:44:00 102.513 kg [facility] BMI 2022-01-11 11:44:00 33.37 kg/m2 [facility] Body temperature 2021-07-04 18:47:34 37.78 Bernadette [facility] Heart rate 2021-07-04 18:24:00 112 /min [facility] Oxygen saturation in Arterial blood by Pulse oximetry 2021-07-04 18:24:00 96 /min [facility] Systolic blood pressure 2021-07-04 16:51:00 132 mm[Hg] [facility] Diastolic blood pressure 2021-07-04 16:51:00 77 mm[Hg] [facility] Respiratory rate 2021-07-04 16:51:00 18 /min [facility] Body weight 2021-07-04 16:51:00 100.699 kg [facility] BMI 2021-07-04 16:51:00 32.77 kg/m2 [facility] Oxygen saturation in Arterial blood by Pulse oximetry 2021-06-23 23:42:00 97 /min [facility] Systolic blood pressure 2021-06-23 23:42:00 127 mm[Hg] [facility] Diastolic blood pressure 2021-06-23 23:42:00 76 mm[Hg] [facility] Heart rate 2021-06-23 23:42:00 83 /min [facility] Body temperature 2021-06-23 23:42:00 35.39 Bernadette [facility] Respiratory rate 2021-06-23 23:42:00 18 /min [facility] Body height 2021-06-23 14:08:00 175.3 cm [facility] Body weight 2021-06-23 14:08:00 100.699 kg [facility] BMI 2021-06-23 14:08:00 32.77 kg/m2 [facility] BP Systolic 2021-07-04 10:21:00 BP Diastolic [...] SOFT TISSUE NECK W CONTRAST 2022-01-11 13:06:31 [facility] 2022-01-11 12:28:00 Taryn Samaniego [facility] COMP. METABOLIC PANEL (64447) 2022-01-11 12:27:00 Singer [facility] CBC WITH DIFF 2022-01-11 12:27:00 Singer [facility] CONSENT/REFUSAL FOR DIAGNOSIS AND TREATMENT 2022-01-11 12:22:15 Doctor Unassigned, Chamisal [facility] RAPID INFLUENZA A/B 2021-07-04 18:18:00 Zoila Mcnulty [facility] COMP. METABOLIC PANEL (65202) 2021-07-04 17:01:00 Singer Francisco [facility] CBC WITH DIFF 2021-07-04 17:01:00 Singer [facility] URINALYSIS 2021-07-04 17:01:00 [facility] LACTIC ACID WHOLE BLOOD 2021-07-04 17:01:00 [facility] COVID-[facility] (ID NOW RAPID TESTING) 2021-07-04 17:01:00 Francisco Samaniego [facility] NOTICE OF PRIVACY PRACTICES 2021-07-04 16:42:56 Doctor Unassigned, Chamisal [facility] MAGNESIUM 2021-06-23 07:47:00 Dostal, [facility] C-REACTIVE PROTEIN 2021-06-23 07:47:00 Doskrishan, [facility] BASIC METABOLIC PANEL (NA, K, CL, CO2, GLUCOSE, BUN, CREATININE, CA) 2021-06-23 07:47:00 Dostal, [facility] LIPID PANEL (44914)(TOTAL CHOLESTEROL, TRIGLYCERIDES, HDL) 2021-06-23 07:47:00 Dostal, [facility] SEDIMENTATION RATE 2021-06-23 07:47:00 Dostal, [facility] CBC WITH DIFF 2021-06-23 07:47:00 Walter Cottrell [facility] HEAD WO CONTRAST 2021-06-22 21:58:29 Doskrishan, [facility] MAGNESIUM 2021-06-22 18:37:00 Lazarus, [facility] BASIC METABOLIC PANEL (NA, K, CL, CO2, GLUCOSE, BUN, CREATININE, CA) 2021-06-22 18:37:00 Doskrishan, [facility] CBC WITH DIFF 2021-06-22 18:37:[address] [facility] US RETROPERITONEAL LIMITED 2021-06-21 21:26:13 Lazarus [facility] VITAMIN B12, LEVEL 2021-06-21 11:08:00 Elizabeth Sebastian [facility] FOLATE 2021-06-21 11:08:00 Elizabeth [facility] C-REACTIVE PROTEIN 2021-06-21 11:08:00 Lazarus [facility] HIV 1/2 AG-AB WITH REFLEX 2021-06-21 11:08:00 Lazarus [facility] CRITICAL CARE 2021-06-21 09:54:09 Olga Camejo [facility] CT ABDOMEN PELVIS WO CONTRAST 2021-06-21 04:49:43 Olga Camejo [facility] XR CHEST 1 VW 2021-06-21 04:28:00 Olga Camejo [facility] URINALYSIS 2021-06-21 04:08:00 Olga Camejo [facility] URINE CULTURE 2021-06-21 04:08:00 Olga Camejo [facility] COVID-19 (ID NOW RAPID TESTING) 2021-06-21 04:08:00 Olga Camejo [facility] LAB ONLY COVID INTERPRETATION 2021-06-21 04:08:00 Olga Camejo [facility] CREATINE KINASE 2021-06-21 04:01:00 [facility] 2021-06-21 04:01:00 Freeman Qiu [facility] BLOOD CULTURE SCREEN 2021-06-21 03:58:00 Laquita Camejo [facility] TROPONIN I 2021-06-21 03:58:00 Olga Camejo [facility] COMP. METABOLIC PANEL (07937) 2021-06-21 03:58:00 Olga Camejo [facility] CBC WITH DIFF 2021-06-21 03:58:00 Olga Camejo [facility] PROTHROMBIN TIME / INR 2021-06-21 03:58:00 Ten Camejo [facility] ACTIVATED PARTIAL THRMPLAS AALNIS 2021-06-21 03:58:00 Olga Camejo [facility] N-TERMINAL PRO-BNP 2021-06-21 03:58:00 Olga Camejo [facility] LACTIC ACID WHOLE BLOOD 2021-06-21 03:57:00 Do magdalena Camejo [facility] HB ECG ROUTINE & RHYTHM STRIP 2021-06-21 03:07:42 Olga Camejo [facility] EMERGENCY SERVICES AGREEMENTS AND AUTHORIZATIONS 2021-06-20 06:01:00 Doctor Unassigned, Chamisal [facility] Plan of Care Planned Activity Planned Date Details Comments Source Goal Plan of Care Note [code = 82511-1] Goal Plan of Care Note [code = 56488-6] Goal Plan of Care Note [code = 86927-1] Goal Plan of Care Note [code = 41271-4] Goal Plan of Care Note [code = 98121-6] Goal Plan of Care Note [code = 55784-3] Goal Plan of Care Note [code = 47085-3] Goal Plan of Care Note [code = 70120-8] Encounters Start Date/Time End Date/Time Encounter Type Admission Type Attending Clinicians Care Facility Care Department Encounter ID Source 2024-06-16 11:15:00 2024-06-16 11:15:00 Outpatient MANN GARDNER [id number] [facility] 2024-05-25 13:30:00 2024-05-25 13:30:00 Outpatient LEANDRA BEARD [id number] [facility] 2024-04-28 15:15:00 2024-04-28 15:15:00 Outpatient LOS HICKS [id number] [facility] 2024-04-28 11:15:00 2024-04-28 11:15:00 Outpatient RAMOS CAMACHO [id number] [facility] 2024-04-27 15:30:00 2024-04-27 15:30:00 Outpatient RAMOS CAMACHO [id number] [facility] 2024-04-14 09:30:00 2024-04-14 09:30:00 Outpatient LEANDRA BEARD [id number] [facility] 2024-03-26 00:00:00 2024-03-26 00:00:00 Outpatient KLARISSA DUNCAN [id number] [facility] 2024-03-17 00:00:00 2024-03-17 00:00:00 Outpatient MANN GARDNER [id number] [facility] 2024-03-17 00:00:00 2024-03-17 00:00:00 Outpatient MANN GARDNER LEANDRA LEANDRA [id number] Leandra Seybraz 2024-03-10 12:25:00 2024-03-10 12:25:00 Outpatient LABDago LEANDRA BEARD [id number] Leandra Seybold 2024-03-10 11:30:00 2024-03-10 11:30:00 Outpatient MANN GARDNER LEANDRA LEANDRA [id number] Leandra Seybold 2024-03-08 10:00:00 2024-03-08 10:00:00 Outpatient LOS HICKS LEANDRA BEARD [id number] Leandra Seybold 2024-03-05 11:30:00 2024-03-05 11:30:00 Outpatient GENARO GALINDO LEANDRA BEARD [id number] Leandra Seybold 2024-02-27 10:50:00 2024-02-27 10:50:00 Outpatient NAVEEN ESQUIVEL [id number] Elandra Seybold 2024-02-18 00:00:00 2024-02-18 00:00:00 Outpatient KERMITShailesh KLARISSA LEANDRA BEARD [id number] Leandra Seybold 2024-02-13 09:50:00 2024-02-13 09:50:00 Outpatient LABGeorge LEANDRA BEARD [id number] Leandra Seybold 2024-02-13 00:00:00 2024-02-13 00:00:00 Outpatient LEANDRA BEARD [id number] Leandra Seybold 2024-02-13 00:00:00 2024-02-13 00:00:00 Outpatient KLARISSA DUNCAN [id number] Leandra Seybold 2024-02-12 16:30:00 2024-02-12 16:30:00 Outpatient KLARISSA DUNCAN [id number] Leandra Seybold 2024-02-12 00:00:00 2024-02-12 00:00:00 Outpatient LEANDRA BEARD [id number] Leandra Seybold 2024-01-26 00:00:00 2024-01-26 00:00:00 Outpatient SHAISTA COLINDRES [id number] Leandra Seybold 2024-01-26 00:00:00 2024-01-26 00:00:00 Outpatient RAMOS CAMACHO [id number] Leandra Seybold 2024-01-26 00:00:00 2024-01-26 00:00:00 Outpatient RAMOS CAMACHO [id number] Leandra Seybold 2023-12-31 15:00:00 2023-12-31 15:00:00 Outpatient REGINALDJOSE MCKINNEYCLEMENT LEANDRA BEARD [id number] Leandra Seybold 2023-12-24 09:00:00 2023-12-24 09:00:00 Outpatient MINI ZARAGOZA LEANDRA BEARD [id number] Leandra Seybold 2023-12-23 07:40:00 2023-12-23 07:40:00 Outpatient MINI ZARAGOZA LEANDRA BEARD [id number] Leandra Seybold 2023-12-18 00:00:00 2023-12-18 00:00:00 Outpatient SHAISTA COLINDRES [id number] Leandra Seybold 2023-12-18 00:00:00 2023-12-18 00:00:00 Outpatient CECIL BARNEY [id number] Leandra Seybold 2023-12-09 00:00:00 2023-12-09 00:00:00 Outpatient MD LEANDRA MOLINA [id number] Leandra Seybold 2023-12-09 00:00:00 2023-12-09 00:00:00 Outpatient CUCO ANDREWS [id number] Leandra Seybold 2023-12-09 00:00:00 2023-12-09 00:00:00 Outpatient RAMOS CAMACHO [id number] Leandra Seybold 2023-11-20 00:00:00 2023-11-20 00:00:00 Outpatient RAMOS CAMACHO [id number] Leandra Seybold 2023-11-20 00:00:00 2023-11-20 00:00:00 Outpatient SHAISTA COLINDRES LE[facility]DRA BEARD [id number] [facility] 2023-11-17 15:00:00 2023-11-17 15:00:00 Outpatient LEANDRA BEARD [id number] [facility] 2023-11-12 00:00:00 2023-11-12 00:00:00 Outpatient SHAISTA COLINDRES LEANDRA BEARD [id number] [facility] 2023-10-30 15:00:00 2023-10-30 15:00:00 Outpatient LEANDRA BEARD [id number] [facility] 2023-10-29 00:00:00 2023-10-29 00:00:00 Outpatient SHAISTA COLINDRES LEANDRA BEARD [id number] [facility] 2023-10-28 00:00:00 2023-10-28 00:00:00 Outpatient RAMOS CAMACHO [id number] [facility] 2023-10-21 13:45:00 2023-10-21 13:45:00 Outpatient RMAOS CAMACHO [id number] [facility] 2023-10-17 12:30:00 2023-10-17 12:30:00 Outpatient LEANDRA BEARD [id number] [facility] 2023-10-17 10:30:00 2023-10-17 10:30:00 Outpatient LEANDRA BEARD [id number] [facility] 2023-10-12 12:45:00 2023-10-12 12:45:00 Outpatient BON MONTELONGO [id number] [facility] 2023-10-09 14:45:00 2023-10-09 14:45:00 Outpatient JENNIFER LENZ [id number] [facility] 2023-10-09 08:30:00 2023-10-09 08:30:00 Outpatient TROY TAN [id number] [facility] 2023-10-07 15:00:00 2023-10-07 15:00:00 Outpatient CECIL BARNEY [id number] [facility] 2023-10-01 14:40:00 2023-10-01 14:40:00 Outpatient PAB143 LEANDRA BEARD [id number] Leandra [facility] 2023-10-01 13:45:00 2023-10-01 13:45:00 Outpatient PHIL GARCIA [id number] [facility]:00:00 2023-09-23 00:00:00 Outpatient SHAIST[facility] COLINDRES [id number] [facility]23-09-21 00:00:00 2023-09-21 00:00:00 Outpatient TROY HANEY [id number] [facility] 2023-09-16 15:10:00 2023-09-16 15:10:00 Outpatient JOSE PINO [id number] [facility] 2023-09-16 10:30:00 2023-09-16 10:30:00 Outpatient LAB53 LEANDRA BEARD [id number] [facility] 2023-09-16 09:15:00 2023-09-16 09:15:00 Outpatient SHAISTA COLINDRES [id number] [facility] 2023-09-12 11:30:00 2023-09-12 11:30:00 Outpatient [facility]IL BARNEY [id number] [facility] 2023-09-11 13:10:00 2023-09-11 13:10:00 Outpatient ALVAREZ GARCIAZonia BEARD [id number] [facility] 2023-09-11 00:00:00 2023-09-11 00:00:00 Outpatient CECIL BARNEY [id number] [facility] 2023-08-14 14:35:00 2023-08-14 14:35:00 Outpatient LAB90 LEANDRA BEARD [id number] [facility] 2023-08-14 13:30:00 2023-08-14 13:30:00 Outpatient CECIL BARNEY [id number] [facility] 2023-08-05 00:00:00 2023-08-05 00:00:00 Outpatient CECIL BARNEY [id number] Leandra Seybold 2023-07-14 13:30:00 2023-07-14 13:30:00 Outpatient ECTOR CECIL LEANDRA BEARD [id number] Leandra Seybold 2023-06-30 00:00:00 2023-06-30 00:00:00 Outpatient ANA LUISA HEREDIA [id number] Leandra Seybold 2023-06-23 16:00:00 2023-06-23 16:00:00 Outpatient XIANGBALAShobha AGUSTO LEANDRA BEARD [id number] Leandra Seybold 2023-05-15 00:00:00 2023-05-15 00:00:00 Outpatient CUCO ANDREWS [id number] Leandra Seybold 2023-04-01 17:30:00 2023-04-01 17:30:00 Outpatient ANA LUISA HEREDIA [id number] Leandra Seybold 2023-03-29 11:30:00 2023-03-29 11:30:00 Outpatient ANA M ALFREDO LEANDRA BEARD [id number] Leandra Seybold 2023-03-29 09:30:00 2023-03-29 09:30:00 Outpatient RAMÓN DAVIDJuliane BEARD [id number] Leandra Seybold 2023-03-29 00:00:00 2023-03-29 00:00:00 Outpatient SHAREE CAM [id number] Leandra Seybold 2023-01-22 00:00:00 2023-01-22 00:00:00 Outpatient JUSTIN HENLEY [id number] Leandra Seybold 2023-01-20 14:15:00 2023-01-20 14:15:00 Outpatient JUSTIN HENLEY [id number] Leandra Seybold 2023-01-19 00:00:00 2023-01-19 00:00:00 Outpatient CECIL GÓMEZ [id number] Leandra Seybold 2022-12-28 00:00:00 2022-12-28 00:00:00 Outpatient CUCO ANDREWS [id number] [facility]22-11-26 09:15:00 2022-11-26 09:15:00 Outpatient REBEKAH HERCULES LEANDRA BEARD [id number] [facility] 2022-11-02 00:00:00 2022-11-02 00:00:00 Outpatient CUCO ANDREWS [id number] [facility] 2022-09-24 10:00:00 2022-09-24 10:00:00 Outpatient LOVE LEANDRA BEARD [id number] [facility] 2022-09-24 09:15:00 2022-09-24 09:15:00 Outpatient REBEKAH HERCULES LEANDRA BEARD [id number] Leandra [facility] 2022-09-03 10:45:00 2022-09-03 10:45:00 Outpatient CUCO ANDREWS [id number] Leandra [facility] 2022-08-26 11:50:00 2022-08-26 11:50:00 Outpatient GILMA [facility] [id number] [facility] 2022-08-26 11:00:00 2022-08-26 11:00:00 Outpatient CUCO ANDREWS [id number] [facility] 2022-08-20 08:00:00 2022-08-20 08:00:00 Outpatient CUCO ANDREWS [id number] [facility] 2022-08-08 12:00:00 2022-08-08 12:00:00 Outpatient Cuco Augustine [facility] [id number] [address] [place] [address] 2022-08-08 00:00:00 2022-08-08 00:00:00 Outpatient CUCO ANDREWS [id number] [facility] 2022-08-08 00:00:00 2022-08-08 00:00:00 Outpatient DOUGLAS PRINCE [id number] [facility] 2022-08-08 00:00:00 2022-08-08 00:00:00 Outpatient [facility]ANDRA BEARD [id number] [facility] 2022-08-07 10:10:00 2022-08-07 10:10:00 Outpatient LAB90 LEANDRA BEARD [id number] Leandra Jacob 2022-08-07 09:30:00 2022-08-07 09:30:00 Outpatient CUCO ANDREWS [id number] Leandra Jacob 2022-01-11 06:47:00 2022-01-11 10:01:00 Emergency X FRANCISCO SAMANIEGO [facility] ERT [id number] [facility] 2022-01-11 06:47:00 2022-01-11 10:01:00 Emergency Francisco Samaniego [facility] 1..840.114 [id number] [id number] [facility] 2021-11-15 00:00:00 2021-11-15 00:00:00 Outpatient Visit [id number] 2021-07-04 10:56:00 2021-07-04 13:43:00 Emergency X PRICILAZOILA [facility] ERT [id number] [facility] 2021-07-04 10:56:00 2021-07-04 13:43:00 Emergency Zoila Mcnulty [facility] 1..840.114 [id number] [id number] [id number] [facility] 2021-07-04 00:00:00 2021-07-04 00:00:00 Orders Only Doctor Unassigned, Chamisal [facility] 1..840.114 [id number] [id number] [id number] [facility] 2021-06-26 00:00:00 2021-06-26 00:00:00 Patient Secure Msg Doctor Unassigned, Chamisal [facility] 1.2.840.114 350.1.13.10 4.2.7.2.686 [id number] [facility] 2021-06-25 00:00:00 2021-06-25 00:00:00 Transition of Care Claudine Gutierrez 1.2.840.114 350.1.13.10 4.2.7.2.686 [id number] [facility] 2021-06-20 21:02:00 2021-06-23 18:51:00 Hospital Encounter Olga Camejo, Melania Russo [facility] 1.2840.114 350.1.13.10 4.2.7.2.686 [id number] [facility] 2021-06-20 21:02:00 2021-06-23 18:51:00 Inpatient X [facility] [id number] [facility] Results Test Description Test Time Test Comments Results Result [facility] (77494)2021-07-04 17:31:18* Test Item Value Reference Range Interpretation Comme nts NA (test code = 5325696904) 133 mmol/L 135-145 L K (test code = 2679021809) 4.9 mmol/L 3.5-5.0 CL (test code = 1035681785) 104 mmol/L 98-108 CO2 TOTAL (test code = 9926912817) 23 mmol/L 23-31 AGAP (test code = 4746095310) 2-16 BUN (test code = 6986345330) 13 mg/dL 7-23 GLUCOSE (test code = 5397645886) 124 mg/dL 70-110 H CREATININE (test code = 6843845990) 0.90 mg/dL 0.50-1.04 TOTAL BILI (test code = 6310580139) 0.7 mg/dL 0.1-1.1 CALCIUM (test code = 3329033174) 9.3 mg/dL 8.6-10.6 T PROTEIN (test code = 4863294905) 7.4 g/dL 6.3-8.2 ALBUMIN (test code = 5137045216) 4.3 g/dL 3.5-5.0 ALK PHOS (test code = 6044020741) 90 U/L 34-122 ALTv (test code = 1742-6) 68 U/L 5-35 H AST(SGOT) (test code = 3287455142) 79 U/L 13-40 H eGFR (test code = 4770080627) mL/min/1.73m2 BERLIN (test code = BERLIN) Association [...] imaging tests). Lab Interpretation (test code = 49746-3) Abnormal [facility] with [id number] 17:16:16* Test Item Value Reference Range Interpretation Comme nts WBC (test code = 6690-2) See_Comment [Automated messa ge] The system which generated this result transmitted reference range: 4.30 - 11.10 10*3/?L. The reference range was not used to interpret this result as normal/abnormal. RBC (test code = 789-8) See_Comment [Automated [employer] ge] The system which generated this result [...] 33.9 g/dL 31.6-35.1 RDW-SD (test code = 82820-7) 46.9 fL 39.0-49.9 RDW-CV (test code = 788-0) 13.1 % 12.0-15.5 PLT (test code = 777-3) See_Comment [Automated [employer] ge] The system which generated this result transmitted reference range: 166 - 358 10*3/?L. The reference range was not used to interpret this result as normal/abnormal. MPV (test code = 06581-8) 9.4 fL 9.5-12.9 L NRBC/100 WBC (test code = 8192703686) See_Comment [Automated [employer] ssage] The system which generated this result transmitted reference range: 0.0 - 10.0 /100 WBCs. The reference range was not used to interpret this result as normal/abnormal. NRBC x10^3 (test code = 8764202602) <0.01 See_Comment [Automated [employer] ge] The system which generated this result transmitted reference range: 10*3/?L. The reference range was not used to interpret this result as normal/abnormal. GRAN MAT (NEUT) % (test code = 770-8) 80.1 % IMM GRAN % (test code = 0965572742) 0.30 % LYMPH % (test code = 736-9) 12.6 % MONO % (test code = 5905-5) 4.6 % EOS % (test code = 713-8) 2.1 % BASO % (test code = 706-2) 0.3 % GRAN MAT x10^3(ANC) (test code = 6341743856) 4.91 10*3/uL 1.88-7.09 IMM GRAN x10^3 (test code = 1141172691) <0.03 0.00-0.06 LYMPH x10^3 (test code = 731-0) 0.77 10*3/uL 1.32-3.29 L MONO x10^3 (test code = 742-7) 0.28 10*3/uL 0.33-0.92 L EOS x10^3 (test code = 711-2) 0.13 10*3/uL 0.03-0.39 BASO x10^3 (test code = 704-7) <0.03 0.01-0.07 Lab Interpretation (test code = 67446-7) [facility] [id number] 17:12:38* Test Item Value Reference Range Interpretation Comme nts LACTIC ACID (test code = 1106941069) 1.69 mmol/L 0.50-2.20 Lab Interpretation (test cod e = 47752-3) [facility] (41515)(TOTAL CHOLESTEROL, TRIGLYCERIDES, HDL)2021-06-23 21:51:16* Test Item Value Reference Range Interpretation Comme nts CHOL (test code = 6067793341) 149 mg/dL 120-200 HDL (test code = 2862293870) 20 mg/dL >50 L HDLC RATIO (test code = 7515937796) See_Comment H [Automated [employer]] The system which generated this result transmitted reference range: <=4.5. The reference range was not used to interpret this result as normal/abnormal. TRIG (test code = 3476660145) 137 mg/dL 30-170 LDL CHOL (test code = 45685-7) 102 mg/dL See_Comment [Automated [employer]] The system which generated this result transmitted reference range: <=160. The reference range was not used to interpret this result as normal/abnormal. VLDL (test code = 0756272800) 27 mg/dL 5-60 Lab Interpretation (test code = 15296-7) Abnormal [facility]-REACTIVE [id number] 17:54:55* Test Item Value Reference Range Interpretation Comme nts CRP (test code = 7032600385) 25.7 mg/dL <0.8 H Lab Interpretation (test cod e = 64064-4) [facility] [id number] 08:35:00* Test Item Value Reference Range Interpretation Comme nts ESR (test code = 5859923257) See_Comment H [Automated messa ge] The system which generated this result transmitted reference range: 0 - 20 mm/HR. The reference range was not used to interpret this result as normal/abnormal. Lab Interpretation (test code = 88924-6) Abnormal [facility] METABOLIC PANEL (NA, K, CL, CO2, GLUCOSE, BUN, CREATININE, CA)2021-06-23 08:05:51* Test Item Value Reference Range Interpretation Comme nts NA (test code = 3888898246) 135 mmol/L 135-145 K (test code = 1900964483) 3.8 mmol/L 3.5-5.0 CL (test code = 0233270239) 104 mmol/L 98-108 CO2 TOTAL (test code = 1700174597) 28 mmol/L 23-31 AGAP (test code = 9293657272) 2-16 BUN (test code = 1974060709) 13 mg/dL 7-23 GLUCOSE (test code = 9959585186) 112 mg/dL 70-110 H CREATININE (test code = 9417769080) 0.73 mg/dL 0.50-1.04 CALCIUM (test code = 0693360321) 8.6 mg/dL 8.6-10.6 eGFR (test code = 1689200372) mL/min/1.73m2 BERLIN (test code = BERLIN) Association [...] imaging tests). Lab Interpretation (test code = 14264-3) [facility] 08:05:51* Test Item Value Reference Range Interpretation Comme nts MAGNESIUM (test code = 7203892856) 1.9 mg/dL 1.7-2.4 Lab Interpretation (test cod e = 65289-2) Normal [facility] WITH [id number] 07:55:06* Test Item Value Reference Range Interpretation Comme nts WBC (test code = 6690-2) See_Comment H [Automated [employer]] The system which generated this result transmitted reference range: 4.30 - 11.10 10*3/?L. The reference range was not used to interpret this result as normal/abnormal. RBC (test code = 789-8) See_Comment L [Automated [employer]] The system which generated this result transmitted [...] 33.9 g/dL 31.6-35.1 RDW-SD (test code = 07429-1) 46.9 fL 39.0-49.9 RDW-CV (test code = 788-0) 13.1 % 12.0-15.5 PLT (test code = 777-3) See_Comment [Automated messa ge] The system which generated this result transmitted reference range: 166 - 358 10*3/?L. The reference range was not used to interpret this result as normal/abnormal. MPV (test code = 66136-2) 9.2 fL 9.5-12.9 L NRBC/100 WBC (test code = 0323421412) See_Comment [Automated [employer] ssage] The system which generated this result transmitted reference range: 0.0 - 10.0 /100 WBCs. The reference range was not used to interpret this result as normal/abnormal. NRBC x10^3 (test code = 0405420065) <0.01 See_Comment [Automated [employer] ge] The system which generated this result transmitted reference range: 10*3/?L. The reference range was not used to interpret this result as normal/abnormal. GRAN MAT (NEUT) % (test code = 770-8) 63.1 % IMM GRAN % (test code = 8684113827) 0.50 % LYMPH % (test code = 736-9) 23.7 % MONO % (test code = 5905-5) 10.8 % EOS % (test code = 713-8) 1.5 % BASO % (test code = 706-2) 0.4 % GRAN MAT x10^3(ANC) (test code = 3310114976) 7.43 10*3/uL 1.88-7.09 H IMM GRAN x10^3 (test code = 8886964504) 0.06 10*3/uL 0.00-0.06 LYMPH x10^3 (test code = 731-0) 2.79 10*3/uL 1.32-3.29 MONO x10^3 (test code = 742-7) 1.27 10*3/uL 0.33-0.92 H EOS x10^3 (test code = 711-2) 0.18 10*3/uL 0.03-0.39 BASO x10^3 (test code = 704-7) 0.05 10*3/uL 0.01-0.07 Lab Interpretation (test code = 82262-4) Abnormal [facility] WITH [id number] 19:32:51* Test Item Value Reference Range Interpretation [...] 33.5 g/dL 31.6-35.1 RDW-SD (test code = 33490-8) 46.6 fL 39.0-49.9 RDW-CV (test code = 788-0) 12.9 % 12.0-15.5 PLT (test code = 777-3) See_Comment H [Automated messa ge] The system which generated this result transmitted reference range: 166 - 358 10*3/?L. The reference range was not used to interpret this result as normal/abnormal. MPV (test code = 08256-6) 9.4 fL 9.5-12.9 L NRBC/100 WBC (test code = 1625112142) See_Comment [Automated me ssage] The system which generated this result transmitted reference range: 0.0 - 10.0 /100 WBCs. The reference range was not used to interpret this result as normal/abnormal. NRBC x10^3 (test code = 7910140629) <0.01 See_Comment [Automated messa ge] The system which generated this result transmitted reference range: 10*3/?L. The reference range was not used to interpret this result as normal/abnormal. GRAN MAT (NEUT) % (test code = 770-8) 63.6 % IMM GRAN % (test code = 7761249422) 0.60 % LYMPH % (test code = 736-9) 23.0 % MONO % (test code = 5905-5) 11.7 % EOS % (test code = 713-8) 0.8 % BASO % (test code = 706-2) 0.3 % GRAN MAT x10^3(ANC) (test code = 2145499836) 8.94 10*3/uL 1.88-7.09 H IMM GRAN x10^3 (test code = 3760539671) 0.08 10*3/uL 0.00-0.06 H LYMPH x10^3 (test code = 731-0) 3.23 10*3/uL 1.32-3.29 MONO x10^3 (test code = 742-7) 1.64 10*3/uL 0.33-0.92 H EOS x10^3 (test code = 711-2) 0.11 10*3/uL 0.03-0.39 BASO x10^3 (test code = 704-7) 0.04 10*3/uL 0.01-0.07 Lab Interpretation (test code = 96979-7) Abnormal [facility] METABOLIC PANEL (NA, K, CL, CO2, GLUCOSE, BUN, CREATININE, CA)2021-06-22 19:20:43* Test Item Value Reference Range Interpretation Comme nts NA (test code = 6203903241) 139 mmol/L 135-145 K (test code = 1928654281) 4.0 mmol/L 3.5-5.0 CL (test code = 9238962706) 107 mmol/L 98-108 CO2 TOTAL (test code = 3059110361) 23 mmol/L 23-31 AGAP (test code = 7227272217) 2-16 BUN (test code = 4044100358) 11 mg/dL 7-23 GLUCOSE (test code = 9848387784) 100 mg/dL 70-110 CREATININE (test code = 7204452425) 0.75 mg/dL 0.50-1.04 CALCIUM (test code = 8818039894) 9.1 mg/dL 8.6-10.6 eGFR (test code = 3983552536) mL/min/1.73m2 BERLIN (test code = BERLIN) Association [...] or urine or abnormalities in imaging tests). [facility] 19:20:43* Test Item Value Reference Range Interpretation Comme nts MAGNESIUM (test code = 6784082771) 1.9 mg/dL 1.7-2.4 Lab Interpretation (test cod e = 44466-0) [facility] [id number] 18:07:54* Test Item Value Reference Range Interpretation Comme nts CRP (test code = 4046827094) 25.8 mg/dL <0.8 H Lab Interpretation (test cod e = 66022-1) [facility]normal [facility], [id number] 00:00:00* Test Item Value Reference Range Interpretation Comme nts CULTURE, URINE (test code = 98536) SPECIMEN NUMBER: [id number] HIV 1/2 AG-AB WITH [id number] 17:13:51* Test Item Value Reference Range Interpretation Comme nts HIV Semi-quantitative (test code = 32536-1) Negative Negative BERLIN (test code = BERLIN) Non-reactive for HIV-1 antigen and HIV-1/HIV-2 antibodies. ?No laboratory evidence of HIV infection. ?Repeat in 2-4 weeks if acute HIV infection is suspected. [facility], [id number] 15:02:02* Test Item Value Reference Range Interpretation Comme nts PREG SERUM (test code = 2950495487) Negative BERLIN (test code = BERLIN) Less than 10 IU/L. ?If low titer or ectopic is suspected, resubmit specimen in 48-72 hours. [facility]2022-[facility]-10 13:21:45* Test Item Value Reference Range Interpretation Comme nts FOLATE SER (test code = 7377973128) 8.2 ng/mL 3.0-20.0 Lab Interpretation (test cod e = 92849-8) [facility]anoVITAMIN B12, [id number] 12:58:44* Test Item Value Reference Range Interpretation Comme nts VIT B12 (test code = 2462857887) 213 pg/mL 240-930 L BERLIN (test code = BERLIN) Biotin has been reported to cause a positive bias, interpret results relative to patient's use of biotin. Lab Interpretation (test code = 56002-0) [facility]normal [facility]anoCBC WITH [id number] 05:04:07* Test Item Value Reference Range Interpretation [...] 34.1 g/dL 31.6-35.1 RDW-SD (test code = 73317-1) 46.5 fL 39.0-49.9 RDW-CV (test code = 788-0) 12.9 % 12.0-15.5 PLT (test code = 777-3) See_Comment H [Automated message] The system which generated this result transmitted reference range: 166 - 358 10*3/?L. The reference range was not used to interpret this result as normal/abnormal. MPV (test code = 18584-0) 9.5 fL 9.5-12.9 NRBC/100 WBC (test code = 1964823564) See_Comment [Automated message] The system which generated this result transmitted reference range: 0.0 - 10.0 /100 WBCs. The reference range was not used to interpret this result as normal/abnormal. NRBC x10^3 (test code = 8289051084) <0.01 See_Comment [Automated message] The system which generated this result transmitted reference range: 10*3/?L. The reference range was not used to interpret this result as normal/abnormal. GRAN MAT (NEUT) % (test code = 770-8) 75.6 % IMM GRAN % (test code = 4601878898) 1.10 % LYMPH % (test code = 736-9) 12.4 % MONO % (test code = 5905-5) 10.4 % EOS % (test code = 713-8) 0.1 % BASO % (test code = 706-2) 0.4 % GRAN MAT x10^3(ANC) (test code = 0456892418) 18.55 10*3/uL 1.88-7.09 H IMM GRAN x10^3 (test code = 2528043114) 0.27 10*3/uL 0.00-0.06 H LYMPH x10^3 (test code = 731-0) 3.04 10*3/uL 1.32-3.29 MONO x10^3 (test code = 742-7) 2.55 10*3/uL 0.33-0.92 H EOS x10^3 (test code = 711-2) <0.03 0.03-0.39 L BASO x10^3 (test code = 704-7) 0.09 10*3/uL 0.01-0.07 H Lab Interpretation (test code = 26648-0) [facility]normal [facility]anoTROPONIN [id number] 04:44:20* Test Item Value Reference Range Interpretation Comments TROPONIN I (test code = 1693040233) 0.004 ng/mL See_Comment [Automated message] The system [...] of biotin. Lab Interpretation (test code = 51358-7) Normal [facility]anoN-TERMINAL [id number] 04:41:23* Test Item Value Reference Range Interpretation Comme nts NT-proBNP (test code = 1680788180) 101 pg/mL See_Comment [Automated message] The system which generated this result transmitted reference range: <=125. The reference range was not used to interpret this result as normal/abnormal. BERLIN (test code = BERLIN) Biotin has been reported to cause a negative bias, interpret results relative to patient's use of biotin. Lab Interpretation (test code = 83040-4) Normal [facility]anoACTIVATED PARTIAL THRMPLAS [id number] 04:40:03* Test Item Value Reference Range Interpretation Comme nts APTT Patient (test code = 3173-2) See_Comment [Automated message] The system which generated this result transmitted reference range: 23 - 38 Seconds. The reference range was not used to interpret this result as normal/abnormal. BERLIN (test code = BERLIN) The [facility] patient population mean normal value for aPTT is 30 seconds. Lab Interpretation (test code = 81065-1) Normal [facility]anoCREATINE [id number] 04:38:17* Test Item Value Reference Range Interpretation Comme nts CK (test code = 5154207902) <20 33-194 L Lab Interpretation (test cod e = 33617-4) Abnormal [facility]anoPROTHROMBIN TIME / [id number] 04:38:02* Test Item Value Reference Range Interpretation Comme [facility] PROTIME PATIENT (test code = 5964-2) See_Comment [Automated messa ge] The system which generated this result transmitted reference range: 12.0 - 14.7 Seconds. The reference range was not used to interpret this result as normal/abnormal. INR (test code = 6301-6) Normal INR <1.1; Warfarin Therapeutic range 2.0 to 3.0 or 2.5 to 3.5, depending upon the indications. Lab Interpretation (test code = 29114-1) Normal [facility]anoCOMP. METABOLIC PANEL (69982)2021-06-21 04:34:40* Test Item Value Reference Range Interpretation Comme nts NA (test code = 2243093381) 134 mmol/L 135-145 L K (test code = 8236653286) 4.3 mmol/L 3.5-5.0 CL (test code = 1061847742) 100 mmol/L 98-108 CO2 TOTAL (test code = 3779850066) 26 mmol/L 23-31 AGAP (test code = 6617726719) 2-16 BUN (test code = 9629557920) 16 mg/dL 7-23 GLUCOSE (test code = 7727179572) 112 mg/dL 70-110 H CREATININE (test code = 4789385510) 0.72 mg/dL 0.50-1.04 TOTAL BILI (test code = 4802727831) 1.1 mg/dL 0.1-1.1 CALCIUM (test code = 8923786737) 9.2 mg/dL 8.6-10.6 T PROTEIN (test code = 0231253671) 6.9 g/dL 6.3-8.2 ALBUMIN (test code = 1607446546) 4.1 g/dL 3.5-5.0 ALK PHOS (test code = 1082262186) 104 U/L 34-122 ALTv (test code = 1742-6) 21 U/L 5-35 AST(SGOT) (test code = 1498663976) 28 U/L 13-40 eGFR (test code = 5747128283) mL/min/1.73m2 BERLIN (test code = BERLIN) Association [...] imaging tests). Lab Interpretation (test code = 98640-9) Abnormal [facility] Notes Date/Time Note Provider Source 2024-03-10 11:38:52 Chief Complaint Patient presents with Follow-up History of systemic lupus erythematosus (SLE) Cecelia Rogel CMA II [facility] 2024-03-08 10:12:11 Chief Complaint Patient presents with UTI Bladder Pain Urinary Frequency Urinary Frequency PVR: 237ML Alexandru Muhammad CMA II [facility] 2023-10-21 13:59:12 Chief Complaint Patient presents with Consultation Endometriosis CRISTOBAL Collazo [facility] 2023-10-07 14:51:15 Chief Complaint Patient presents with Weight Problem Discuss weight management Tamiko Guerra MA II [facility] 2023-09-16 09:09:29 Chief Complaint Patient presents with New Patient New rheumatology establish, previous Lupus dx 20 years ago. Pt c/o of chronic fatigue, brain fog and pain. Pt would like to consult if she can get back on her previous medications and injections. Pt in a current flare up, lupus rash present all over upper trunk. Pamela Raza CMA I [facility] 2023-08-14 13:28:51 Chief Complaint Patient presents with Dizziness Dizziness and nausea when she switches positions. Sister was just Dx with POTS. Zaira Alvarez LVN [facility] 2023-07-14 13:43:05 Chief Complaint Patient presents with Lupus Lupus flare up. Nausea, vomiting and headaches Zaira Alvarez LVN [facility]"
[2024-04-10 21:17] LABS: Specific Gravity 1.016 (1.005-1.030); Urine Bilirubin NEGATIVE (Negative); Urine Blood Negative (Negative); Urine Clarity Clear (Clear); Urine Color Light-Yellow (Yellow); Urine Glucose NEGATIVE (Negative); Urine Ketones NEGATIVE (Negative); Urine Microscopic Reflex YN NO UMIC; Urine Nitrite NEGATIVE (Negative); Urine Protein NEGATIVE (Negative); Urine Urobilinogen Normal (Normal)
[2024-04-10] MEDS ORDERED: NA CHLORIDE 0.9% 2,000 ML ONE (21:18)
[2024-04-10] MEDS ORDERED: MORPHINE 4 MG/ML SYR ONE (21:18)
[2024-04-10] MEDS ORDERED: ONDANSETRON 4 MG/2 ML VIAL ONE (21:18)
[2024-04-10 21:20] LABS: Absolute Basophils 0.1 K/uL (0-0.5); Absolute Eosinophils 0.1 K/uL (0-0.5); Absolute Lymphocytes (CBC) 2.7 K/uL (0.7-4.9); Absolute Monocytes 0.7 K/uL (0.1-1.3); Basophils % 0.7 % (0-1.3); Eosinophils % 1.1 % (0-4.4); Hematocrit 49.2 % (36.0-45.0); Hemoglobin 16.4 g/dL (12.0-15.0); Lymphocytes % 23.5 % (15.3-44.8); MCH 33.3 pg (27.0-35.0); MCHC 33.4 g/dL (32.0-36.0); MCV 99.7 fL (80-100); MPV 8.7 fL (7.6-11.3); Monocytes % 5.7 % (3.3-12.3); Platelets 368 thou/uL (152-406); RBC Red Blood Cell Count 4.93 M/uL (3.86-4.86); Red Cell Distribution Width 14.1 % (12.1-15.2)
[2024-04-10 22:03] LABS: Albumin 3.3 g/dL (3.4-5.0); Albumin/Globulin Ratio 0.9 (1.1-1.8); Anion Gap 6.4 mEq/L (5.0-15.0); Bilirubin Total 0.3 mg/dL (0.2-1.0); Globulin 3.6 g/dL (2.3-3.5); Protein, Total 6.9 g/dL (6.4-8.2)
[2024-04-10 22:05] LABS: Potassium 4.4 mEq/L (3.5-5.1)
--- NOTE | 2024-04-10 22:36 | RAD REPORT ---
EXAMINATION: CT ABDOMEN AND PELVIS WITH CONTRAST CLINICAL INDICATION: Female, 43 years old.pelvic pain TECHNIQUE: CT abdomen and pelvis was performed, after the administration of IV contrast, as per [facility]. Axial, sagittal and coronal reconstructions were obtained. One or more of the following dose reduction techniques were used: Automated exposure control, adjustment of the mA and/o r kV according to patient size, and/or iterative reconstruction. Unless otherwise specified, incidental findings do not require dedicated imaging follow-up. [id number]. COMPARISON: No prior exam. FINDINGS: LOWER CHEST: The visualized lung bases are clear. LIVER: Normal in size and contour. No focal lesion. GALLBLADDER/BILE DUCT: No biliary ductal dilatation.? PANCREAS: No significant abnormality. SPLEEN: Normal size. No focal lesion. ADRENALS: Normal; no mass. KIDNEYS AND URETERS: Normal size and contour. No hydronephrosis. GASTROINTESTINAL TRACT: Stomach is non-dilated. Small bowel has normal course and caliber. No colonic wall thickening or pericolonic inflammatory changes. Moderate stool in the colon. PERITONEUM: No ascites. LYMPH NODES: No lymphadenopathy. ABDOMINAL AORTA AND OTHER VESSELS: Normal caliber aorta and IVC. URINARY BLADDER: Normal contour. REPRODUCTIVE ORGANS: No pathologic process. Hysterectomy. MUSCULOSKELETAL: No acute or suspicious osseous abnormality. ADDITIONAL FINDINGS: None. IMPRESSION: No acute or significant abnormalities seen in the abdomen or pelvis. Moderate colonic stool.
[2024-04-10] MEDS ORDERED: FENTANYL CITR 100 MCG/2 ML ONE (22:45)
[2024-04-11] MEDS ORDERED: FENTANYL CITR 100 MCG/2 ML ONE (00:35)
[2024-04-11] MEDS ORDERED: FLEET ENEMA ADULT PR ONE ×2 (00:35→02:12)
[2024-04-11] MEDS ORDERED: HYDROCODONE/APAP 5/325 MG TAB ONE ×2 (00:55→03:07)
[2024-04-11] MEDS ORDERED: LACTULOSE 20 GM/30 ML UCUP ONE (00:55)
--- NOTE | 2024-04-11 02:43 | EDPHYS ---
Physician Documentation [facility] Name: Carmella Garcia Age: 43 yrs Sex: Female : 1980 Arrival Date: 04/10/2024 Time: 18:51 Bed 5 Private MD: ED Physician René Celaya HPI: 04/10 19:16 This 43 yrs old Female presents to ER via Unassigned with complaints of sp4 Rectal Pain, Vaginal Pain. 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 - Infectious Disease History:: Denies. - Social history:: Smoking status: Patient reports the use of cigarette tobacco products, denies chronic smoking, but will smoke occasionally. Vital Signs: 19:55 BP 125 / 93; Pulse 98; Resp 19; Temp 98.4(O); Pulse Ox 99% on R/A; MAP 104 mmHg; Pain tm6 10/10; 22:37 BP 120 / 75; Pulse 72; Resp 18; Pulse Ox 100% ; cp4 23:30 BP 110 / 80; Pulse 69; Resp 18; Pulse Ox 100% ; cp4 04/11 00:30 BP 103 / 70; Pulse 71; Resp 18; Pulse Ox 100% ; cp4 02:00 BP 104 / 65; Pulse 63; Resp 18; Pulse Ox 100% ; vc1 03:00 BP 111 / 65; Pulse 68; Resp 17; Pulse Ox 100% ; vc1 04/10 19:55 Pain Scale: Adult tm6 Procedures: 02:40 Fecal disimpaction: digital disimpaction was performed, with a moderate amount of stool sp4 expressed. The patient tolerated the intervention well, Moderate fecal impaction was evacuated . MDM: 04/10 19:17 Medical Screening Exam initiated sp4 04/11 02:40 Differential diagnosis: hemorrhoids, fissure, abscess, pilonidal cyst, condyloma. Data sp4 reviewed: vital signs, nurses notes, old medical records, lab test result(s), radiologic studies, CT scan. Consideration of Admission/Observation Escalation of care including admission/observation considered. ED course: Patient was found to have fecal impaction on CAT scan. Patient was disimpacted. Stable for discharge home. 04/10 20:00 Order name: CBC with Diff; Complete Time: 23:49 sp4 04/10 20:00 Order name: CMP; Complete Time: 23:49 sp4 04/10 20:00 Order name: Lipase; Complete Time: 23:49 sp4 04/10 20:00 Order name: Urinalysis w/ reflexes sp4 04/10 20:00 Order name: CT Abd/Pelvis - IV Contrast Only; Complete Time: 23:49 sp4 04/10 20:00 Order name: IV Saline Lock; Complete Time: 21:13 sp4 04/10 20:00 Order name: Labs collected and sent; Complete Time: 21:13 sp4 04/10 20:00 Order name: NPO; Complete Time: 21:12 sp4 04/10 20:00 Order name: Pelvic Exam Setup; Complete Time: 21:26 sp4 Administered Medications: 04/10 21:25 Drug: Ondansetron IVP 8 mg IVP once; over 2 minutes Route: IVP; Site: right antecubital;cp4 22:50 Follow up: Response: No adverse reaction; Nausea is decreased cp4 21:25 Drug: morphine IVP or IV 8 mg IVP once over 4 mins Route: IVP; Infused Over: 4 mins; cp4 Site: right antecubital; 21:25 Drug: NS 0.9% IV 1000 ml IV at 1 bolus Per protocol; to be given as a bolus over 60 cp4 minutes Route: IV; Rate: 1 bolus; Site: right antecubital; 04/11 00:39 Follow up: IV Status: Completed infusion cp4 04/10 21:37 Drug: morphine IVP or IV 8 mg IVP once over 4 mins Route: IVP; Infused Over: 4 mins; cp4 Site: right antecubital; 22:50 Follow up: Response: No adverse reaction; Pain is unchanged, physician notified cp4 22:48 Drug: fentaNYL (PF) IVP 100 mcg IVP once Route: IVP; Site: right antecubital; cp4 04/11 00:51 Follow up: Response: No adverse reaction cp4 00:38 Drug: fentaNYL (PF) IVP 50 mcg IVP once Route: IVP; Site: right antecubital; cp4 00:52 Follow up: Response: No adverse reaction cp4 00:39 Drug: NS 0.9% IV 1000 ml IV at 125 ml/hr continuous Route: IV; Rate: 125 ml/hr; Site: cp4 right antecubital; 03:19 Follow up: IV Status: Completed infusion cp4 00:51 Drug: Fleet Enema [place] 133 ml [place] once Route: NY; cp4 01:01 Follow up: Response: No adverse reaction cp4 01:01 Drug: Lactulose PO 30 grams 45 ml PO once Volume: 45 ml; Route: PO; cp4 01:53 Follow up: Response: No adverse reaction cp4 01:01 Drug: HYDROcodone-acetaminophen PO 5 mg-325 mg 2 tabs PO once Route: PO; cp4 01:53 Follow up: Response: No adverse reaction; Pain is decreased cp4 02:16 Drug: Fleet Enema [place] 133 ml [place] once Route: [place]; cp4 02:56 Follow up: Response: No adverse reaction cp4 02:56 Not Given (Patient Refused): fleet [id number] ml [place] once cp4 03:10 Drug: Ibuprofen PO 800 mg PO once Route: PO; cp4 03:11 Follow up: Response: No adverse reaction cp4 03:10 Drug: HYDROcodone-acetaminophen PO 5 mg-325 mg 1 tabs PO once Route: PO; cp4 03:11 Follow up: Response: No adverse reaction cp4 Disposition Summary: 04/11/24 02:42 Discharge Ordered Notes: Location: Home sp4 Problem: new sp4 Symptoms: have improved sp4 Condition: Stable sp4 Diagnosis - Pelvic Pain in female, Fecal impaction, History of Urinary Bladder Prolapse sp4 Followup: sp4 - With: Private Physician - When: 7 - 10 days - Reason: Recheck today's complaints Discharge Instructions: - Discharge Summary Sheet sp4 - Fecal Impaction sp4 Forms: - Patient Portal Instructions sp4 Prescriptions: - Lactulose 10 gram/15 mL Oral solution - take 15 milliliter ORAL route once daily for 30 days; 300 milliliter; Refills: sp4 0, Product Selection Permitted - Tramadol 50 mg Oral tablet - take 1 tablet ORAL route every 8 hours as needed; 20 tablet; Refills: 0, sp4 Product Selection Permitted Signatures: Dispatcher [employer] EDMS René Celaya MD MD sp4 Arlen Oneill 4 Gwen Roberts RN RN tm6 Corrections: (The following items were deleted from the chart) 04/10 20:00 20:00 CBC+H.LAB.BRZ ordered. EDMS EDMS 20:00 20:00 COMPREHENSIVE METABOLIC PANEL+C.LAB.BRZ ordered. EDMS EDMS 20:00 20:00 LIPASE+C.LAB.BRZ ordered. EDMS EDMS 20:00 20:00 Urinalysis+U.LAB.BRZ ordered. EDMS EDMS 20:00 20:00 Abdomen Pelvis W Con+CT.RAD.BRZ ordered. EDMS EDMS
--- NOTE | 2024-04-11 02:43 | ER ---
Nurse's Notes [facility] Name: Carmella Garcia Age: 43 yrs Sex: Female : 1980 Arrival Date: 04/10/2024 Time: 18:51 Bed 5 Private MD: Diagnosis: Pelvic Pain in female, Fecal impaction, History of Urinary Bladder Prolapse Presentation: 04/10 19:55 Chief complaint: Patient states: my pelvis and bottom is in so much pain. I already tm6 have a prolapsed bladder. Last BM was a few days ago. Coronavirus screen: Client denies travel out of the [place] in the last 14 days. Ebola Screen: Patient negative for fever greater than or equal to 101.5 degrees Fahrenheit, and additional compatible Ebola Virus Disease symptoms Patient denies exposure to infectious person. Patient denies travel to an Ebola-affected area in the 21 days before illness onset. No symptoms or risks identified at this time. Initial Sepsis Screen: Does the patient meet any 2 criteria? No. Patient's initial sepsis screen is negative. Does the patient have a suspected source of infection? No. Patient's initial sepsis screen is negative. Risk Assessment: Do you want to hurt yourself or someone else? Patient reports no desire to harm self or others. Onset of symptoms was April 10, 2024. 19:55 Method Of Arrival: Ambulatory tm6 19:55 Acuity: SUSHANT 3 tm6 Triage Assessment: 19:56 General: Appears uncomfortable, Behavior is cooperative. Pain: Complains of pain in tm6 buttocks and pelvis Pain currently is 10 out of 10 on a pain scale. EENT: No signs and/or symptoms were reported regarding the EENT system. Neuro: Level of Consciousness is awake, alert, obeys commands, Oriented to person, place, time, situation. Cardiovascular: Patient's skin is warm and dry. Respiratory: Airway is patent Respiratory effort is even, unlabored, Respiratory pattern is regular, symmetrical. GI: No signs and/or symptoms were reported involving the gastrointestinal system. Abdomen is round non-distended. : Reports pain in suprapubic area vaginal and rectal pain. Derm: No signs and/or symptoms reported regarding the dermatologic system. Musculoskeletal: No signs and/or symptoms reported regarding the musculoskeletal system. COOK SAUCE: 19:59 LMP N/A - Hysterectomy, Not tm6 Historical: - Allergies: 19:56 Sulfa (Sulfonamide Antibiotics); tm6 19:57 Codeine; tm6 - PMHx: 19:56 Lupus erythematosus; tm6 - PSHx: 19:56 Appendectomy; section; Exploratory laparotomy; Total abdominal hysterectomy; tm6 - Immunization history:: Flu vaccine is not up to date. - Infectious Disease History:: Denies. - Social history:: Smoking status: Patient reports the use of cigarette tobacco products, denies chronic smoking, but will smoke occasionally. Screenin:13 [facility] ED Fall Risk Assessment (Adult) History of falling in the last 3 months, cp4 including since admission No falls in past 3 months (0 pts) Confusion or Disorientation No (0 pts) Intoxicated or Sedated No (0 pts) Impaired Gait No (0 pts) Mobility Assist Device Used No (0 pt) Altered Elimination No (0 pt) Score/Fall Risk Level 0 - 2 = Low Risk Oriented to surroundings, Maintained a safe environment, Assessed \T\ reinforced patient's understanding of fall precautions, Hourly rounding (assess needs \T\ fall precautionary measures) done. Abuse screen: Denies threats or abuse. Nutritional screening: No deficits noted. Tuberculosis screening: No symptoms or risk factors identified. Assessment: 21:13 General: Appears in no apparent distress. uncomfortable, Behavior is calm, cooperative, cp4 appropriate for age. Pain: Complains of pain in pelvis and buttocks Pain currently is 10 out of 10 on a pain scale. Neuro: Level of Consciousness is awake, alert, obeys commands, Oriented to person, place, time, situation. Cardiovascular: Patient's skin is warm and dry. Respiratory: Airway is patent Respiratory effort is even, unlabored. GI: No signs and/or symptoms were reported involving the gastrointestinal system. : Parent/caregiver report the patient having possible prolapsed bladder. EENT: No signs and/or symptoms were reported regarding the EENT system. Derm: No signs and/or symptoms reported regarding the dermatologic system. Musculoskeletal: No signs and/or symptoms reported regarding the musculoskeletal system. 22:30 Reassessment: Patient appears in no apparent distress at this time. Patient and/or cp4 family updated on plan of care and expected duration. Pain level reassessed. Patient is alert, oriented x 3, equal unlabored respirations, skin warm/dry/pink. 23:30 Reassessment: Patient appears in no apparent distress at this time. Patient and/or cp4 family updated on plan of care and expected duration. Pain level reassessed. Patient is alert, oriented x 3, equal unlabored respirations, skin warm/dry/pink. 04/11 00:30 Reassessment: Patient appears in no apparent distress at this time. Patient and/or cp4 family updated on plan of care and expected duration. Pain level reassessed. Patient is alert, oriented x 3, equal unlabored respirations, skin warm/dry/pink. 01:30 Reassessment: Patient appears in no apparent distress at this time. Patient and/or cp4 family updated on plan of care and expected duration. Pain level reassessed. Patient is alert, oriented x 3, equal unlabored respirations, skin warm/dry/pink. 02:26 Reassessment: Patient passes large amount of stool after 2nd enema. Provider notified. cp4 Vital Signs: 04/10 19:55 BP 125 / 93; Pulse 98; Resp 19; Temp 98.4(O); Pulse Ox 99% on R/A; MAP 104 mmHg; Pain tm6 10/10; 22:37 BP 120 / 75; Pulse 72; Resp 18; Pulse Ox 100% ; cp4 23:30 BP 110 / 80; Pulse 69; Resp 18; Pulse Ox 100% ; cp4 12 00:30 BP 103 / 70; Pulse 71; Resp 18; Pulse Ox 100% ; cp4 02:00 BP 104 / 65; Pulse 63; Resp 18; Pulse Ox 100% ; vc1 03:00 BP 111 / 65; Pulse 68; Resp 17; Pulse Ox 100% ; vc1 04/10 19:55 Pain Scale: Adult tm6 ED Course: 04/10 18:52 Patient arrived in ED. im 19:16 René Celaya MD is Attending Physician. sp4 19:56 Triage completed. tm6 19:56 Arm band placed on right wrist. tm6 19:58 Allergy band placed. tm6 21:12 Arlen Oneill is Primary Nurse. cp4 21:13 No provider procedures requiring assistance completed. Initial lab(s) drawn, by wa, cp4 sent to lab. Urine collected: clean catch specimen, clear. Inserted saline lock: 22 gauge in right antecubital area, using aseptic technique. Blood collected. Flushed with 10 mL NS. 22:27 CT Abd/Pelvis - IV Contrast Only In Process Unspecified. EDMS 04/11 03:18 Provided Education on: fecal impaction. 4 03:18 intact, bleeding controlled, No redness/swelling at site. Pressure dressing applied. cp4 Administered Medications: 04/10 21:25 Drug: Ondansetron IVP 8 mg IVP once; over 2 minutes Route: IVP; Site: right antecubital;cp4 22:50 Follow up: Response: No adverse reaction; Nausea is decreased cp4 21:25 Drug: morphine IVP or IV 8 mg IVP once over 4 mins Route: IVP; Infused Over: 4 mins; cp4 Site: right antecubital; 21:25 Drug: NS 0.9% IV 1000 ml IV at 1 bolus Per protocol; to be given as a bolus over 60 cp4 minutes Route: IV; Rate: 1 bolus; Site: right antecubital; 04/11 00:39 Follow up: IV Status: Completed infusion cp4 04/10 21:37 Drug: morphine IVP or IV 8 mg IVP once over 4 mins Route: IVP; Infused Over: 4 mins; cp4 Site: right antecubital; 22:50 Follow up: Response: No adverse reaction; Pain is unchanged, physician notified cp4 22:48 Drug: fentaNYL (PF) IVP 100 mcg IVP once Route: IVP; Site: right antecubital; cp4 04/11 00:51 Follow up: Response: No adverse reaction cp4 00:38 Drug: fentaNYL (PF) IVP 50 mcg IVP once Route: IVP; Site: right antecubital; cp4 00:52 Follow up: Response: No adverse reaction cp4 00:39 Drug: NS 0.9% IV 1000 ml IV at 125 ml/hr continuous Route: IV; Rate: 125 ml/hr; Site: cp4 right antecubital; 03:19 Follow up: IV Status: Completed infusion cp4 00:51 Drug: Fleet Enema [place] 133 ml [place] once Route: NV; cp4 01:01 Follow up: Response: No adverse reaction cp4 01:01 Drug: Lactulose PO 30 grams 45 ml PO once Volume: 45 ml; Route: PO; cp4 01:53 Follow up: Response: No adverse reaction cp4 01:01 Drug: HYDROcodone-acetaminophen PO 5 mg-325 mg 2 tabs PO once Route: PO; cp4 01:53 Follow up: Response: No adverse reaction; Pain is decreased cp4 02:16 Drug: Fleet Enema [place] 133 ml [place] once Route: NV; cp4 02:56 Follow up: Response: No adverse reaction cp4 02:56 Not Given (Patient Refused): fleet [id number] ml [place] once cp4 03:10 Drug: Ibuprofen PO 800 mg PO once Route: PO; cp4 03:11 Follow up: Response: No adverse reaction cp4 03:10 Drug: HYDROcodone-acetaminophen PO 5 mg-325 mg 1 tabs PO once Route: PO; cp4 03:11 Follow up: Response: No adverse reaction cp4 Medication: 04/10 21:13 VIS not applicable for this client. cp4 Outcome: 04/11 02:42 Discharge ordered by . sp4 03:18 Discharged to home ambulatory, cp4 03:18 Condition: stable 03:18 Discharge instructions given to patient, Instructed on discharge instructions, follow up and referral plans. medication usage, Demonstrated understanding of instructions, follow-up care, medications, Prescriptions given X 2, 03:23 Patient left the ED. cp4 Signatures: Dispatcher [employer] EDMS Michelle Appiah RN RN vc1 René Celaya MD MD sp4 Laney Larson Christina cp4 Gwen Roberts RN RN tm6
[2024-04-11] MEDS ORDERED: IBUPROFEN 400 MG TAB ONE (03:06)
[2024-04-11 05:50] VITALS: TEMP 98.4
[2024-04-11 05:54] VITALS: O2SAT 100
[2024-04-11 05:59] VITALS: BP 111/65
== END 2024-04-11 03:23 | disposition home or self-care (01) ==
LOC: ER 18:51
DX: K56.41 Fecal impaction (principal); N32.89 Other specified disorders of bladder; F17.210 Nicotine dependence, cigarettes, uncomplicated
CPT/HCPCS: 96361; 85025; 36415; 81003; 83690; 80053; 74177; 96375; 96374; 99284; Q9967; J3010 ×2; J2405; J7030